=== PATIENT | female | born 1945 | race Caucasian/White ===

== ENCOUNTER 2019-01-28 10:16 | Observation (INO) | payer MEDICARE, SELFPAY ==
[2019-01-28] VITALS (11 sets, daily range): BP systolic 133–163; BP diastolic 73–95; PULSE 70–82; RESP 12–20; TEMP 36.1–37.1; O2SAT 97–100; BMI 24.7
--- NOTE | 2019-01-28 | DI.ECHO.S_ITS ---
[facility] +---------+ : : [address] : : : : [id number] : : : : Phone: [phone] Echocardiogram Report + + :Name: TRISHA PEREZ Study Date: 01/28/2019 Height: 67 in : :[facility] Weight: 160 lb : : Gender: Female BSA: 1.8 m2 : :: 1945 Age: 73 yrs BP: 149/73 mmHg: :Reason For Study: Chest pain : : Performed By: Rosalinda Toledo : :Referring: KALYANI JONES : + + Interpretation Summary Borderline concentric left ventricular hypertrophy with ejection fraction 60- 65%. Normal right ventricle and both atria. No significant valvular abnormality. Procedure: A two-dimensional transthoracic echocardiogram with color flow and Doppler was performed. The study quality was technically adequate. Most of the acoustic windows were suboptimal, but the best imaging was obtained from the subcostal window. The patient was in normal sinus rhythm during the exam. Left Ventricle: The left ventricle is normal in size. There is borderline concentric left ventricular hypertrophy. The ejection fraction is estimated to be 60-65%. There are no focal wall motion abnormalities. Diastolic parameters suggest a relaxation abnormality of the left ventricle, consistent with probable normal filling pressures. Right Ventricle: The right ventricle grossly appears normal in size with probable normal systolic function. Atria: The left atrial size is normal. Right atrial size is normal. The interatrial septum is intact with no evidence for an atrial septal defect. Mitral Valve: The mitral valve is normal in structure and function. There is trace mitral regurgitation. Aortic Valve: The aortic valve opens well. There is mild aortic valve sclerosis. No aortic regurgitation is present. Tricuspid Valve: The tricuspid valve is normal in structure and function. There is a trace or physiologic amount of tricuspid regurgitation. The right ventricular systolic pressure is estimated to be at least 24 mmHg based on an estimated right atrial pressure of 3 mm Hg. Pulmonic Valve: The pulmonic valve is not well seen, but is grossly normal. There is no pulmonic valvular regurgitation. Great Vessels: The aortic root is normal size. The ascending aorta could not be visualized. The ascending aorta is normal in size. The IVC is of normal diameter and collapses greater than 50% with a sniff. This suggests a low right atrial pressure of 3 mm Hg. Pericardium/ Pleura There is no pericardial effusion. There is no pleural effusion. MMode/2D Measurements & Calculations LVIDd: 3.8 cm Ao root diam: 3.2 cm LVIDs: 2.3 cm Aortic Jxn: 2.6 cm FS: 39.8 % asc Aorta Diam: 2.7 cm IVSd: 0.84 cm LVPWd: 0.92 cm LV george. diameter/BSA (cm/m^2): 2.1 LV sys. diameter/BSA (cm/m^2): 1.2 LA dimension: 3.1 cm RA long axis: 4.3 cm LA A2 area: 15.8 cm2 RA area: 9.3 cm2 LA A4 area: 13.5 cm2 RA vol: 17.0 ml LA length (vol): 4.7 cm RA : 9.3 ml/m2 LA vol: 39.0 ml RVDd major: 4.3 cm LA vol index: 21.2 ml/m2 RVD1 (basal): 2.8 cm RVD2 (mid): 2.4 cm Doppler Measurements & Calculations Ao V2 max: 127.1 cm/sec MV E max rudi: 75.9 cm/sec Ao V2 mean: 83.4 cm/sec MV A max rudi: 100.5 cm/sec Ao max P.5 mmHg MV E/A: 0.75 Ao mean P.2 mmHg Med Peak E' Rudi: 5.8 cm/sec Ao V2 VTI: 29.6 cm E/E' med: 13.1 Lat Peak E' Rudi: 41.9 cm/sec E/E' lat: 1.8 E/e' average: 7.5 MV dec time: 0.30 sec MV P1/2t: 87.1 msec TR max rudi: 229.3 cm/sec MV P1/2t max rudi: 76.3 cm/sec TR max P.0 mmHg MVA(P1/2t): 2.5 cm2 PA V2 max: 72.3 cm/sec PA V2 mean: 44.0 cm/sec PA mean P.95 mmHg PA Accel Time: 0.20 sec Electronically signed by: Laura Ramos on Reading Physician:01/28/2019 04:34 PM
--- NOTE | 2019-01-28 10:43 | DI.RAD.S_ITS ---
PROCEDURE: XR CHEST 1V INDICATIONS: chest pain TECHNIQUE: One view of the chest was acquired. COMPARISON: None. FINDINGS: Surgical changes and devices: None. Lungs and pleura: Lungs are clear. No pleural effusions or pneumothorax. Mediastinum: Mediastinal contours appear normal. Heart size is normal. Bones and chest wall: No suspicious bony lesions. Overlying soft tissues appear unremarkable. IMPRESSION: No acute cardiopulmonary disease. Dictated by: aNlini Hoskins M.D. on 01/28/2019 at 11:10 Approved by: Nalini Hoskins M.D. on 01/28/2019 at 11:11
--- NOTE | 2019-01-28 10:48 | ED.CHESTPAIN ---
HPI - Chest Pain General Chief Complaint: Chest Pain Stated Complaint: chest pain x1 day Time Seen by Provider: 01/28/19 10:43 Source: patient Mode of arrival: ambulatory Limitations: no limitations History of Present Illness HPI narrative: Patient is a 73-year-old female who presents with left shoulder and back aching. She has a history of known coronary artery disease with a stent, she says yesterday she woke up with is aching which seems to be rather constant. His it is not worsened with exertion. She states that she also gets short of breath with exertion however that has been ongoing for number of months and she has been ignoring it. She also has bilateral weakness in her hands also ongoing for a number of months. Only thing new today is left shoulder chest aching. She took 81 mg aspirin last night MD complaint: chest pain Onset (ago): day(s) Duration: constant Onset: during rest and during exertion Pain location: left chest (Left shoulder) Severity: mild Quality: aching Pain radiation: back Relieving factors: nothing Exacerbating factors: nothing Related Data Home Medications Medication Instructions Recorded Confirmed aspirin 81 mg PO QPM 01/28/19 01/28/19 bupropion HCl 150 mg PO DAILY 01/28/19 01/28/19 conjugated estrogens [Premarin] 0.3 mg PO DAILY 01/28/19 01/28/19 levothyroxine 100 mcg PO DAILY 01/28/19 01/28/19 lisinopril-hydrochlorothiazide 1 tab PO DAILY 01/28/19 01/28/19 rosuvastatin 40 mg PO DAILY 01/28/19 01/28/19 sertraline 200 mg PO DAILY 01/28/19 01/28/19 Review of Systems Review of Systems GENERAL: Denies chills, fatigue, malaise, fever, sweats, travel HEENT: Denies sinus pain, ear pain, sore throat, difficulty swallowing, neck pain RESPIRATORY: Denies dyspnea, cough, wheezing, hemoptysis, sputum. CARDIOVASCULAR: See HPI GASTROINTESTINAL: Denies nausea, vomiting, abdominal pain, diarrhea, constipation, melena. : Denies dysuria, frequency, incontinence, hematuria, urinary retention, flank pain. MUSCULOSKELETAL: Denies weakness, joint pain, or bony pain SKIN: No rash, no erythema, no pruritus NEUROLOGIC: Denies weakness, dizziness, headache, numbness, change in speech, confusion PSYCHIATRIC: No concerning psychosocial issues. 12 point review of systems is negative except for those stated above and HPI [facility] Medical History Coronary artery disease (Acute) Hyperlipidemia (Acute) Hypertension (Acute) Hypothyroid (Acute) Social History alcohol intake: never substance use type: does not use Social History household members: none Smoking Status: Former smoker alcohol intake: never substance use type: does not use Exam Initial Vital Signs Initial Vital Signs: Vital Signs Temperature 97 F L 01/28/19 10:24 Pulse Rate 82 01/28/19 10:24 Respiratory Rate 12 01/28/19 10:24 Blood Pressure 145/84 H 01/28/19 10:24 Pulse Oximetry 98 01/28/19 10:24 GENERAL: Well-appearing, well-nourished and in no acute distress. HEENT: Head atraumatic,EOMI, pupils reactive, CARDIOVASCULAR: Regular rate and rhythm without murmurs, rubs or gallops. RESPIRATORY: Breath sounds equal bilaterally, no wheezes rales or rhonchi. ABDOMEN: Soft, nontender. Normoactive bowel sounds all 4 quadrants. No guarding or rebound. EXTREMITIES: Normal range of motion, no clubbing or edema. Neurovascularly intact NEUROLOGICAL: Alert and oriented x4.Normal gait and speech. SKIN: Warm, dry, no laceration, no petechiae, no rashes or lesions. Scores HEART Score Heart Score history: Moderately Suspicious Heart Score EKG: Normal Heart Score Age: > or = 65 years old Heart Score risk factors: > 3 risk factors or hx of atherosclerotic disease Heart Score troponin: < or = to normal limit Heart Score Total: 5 Course Orders Ordered: ED Orders 01/28/19 10:35 Complete Blood Count AUTO DIFF Stat Comprehensive Metabolic Panel Stat Lipase Stat Partial Thromboplastin Time Stat Prothrombin Time INR Stat Troponin & CK Cardiac Panel Stat 01/28/19 10:43 XR chest 1V Stat EKG-12 Lead Stat 01/28/19 11:41 Urine Microscopic Stat 01/28/19 13:45 Education, smoking cessation ONGOING 01/28/19 16:00 Troponin & CK Cardiac Panel Urgent 01/28/19 22:00 Troponin & CK Cardiac Panel Routine Acetaminophen (Tylenol) 650 mg PO Q6HR PRN PRN Reason: As Needed for Fever/Mild Pain Bisacodyl (Dulcolax) 10 mg PO DAILY PRN PRN Reason: Constipation Calcium Carbonate (Tums) 1,000 mg PO Q4HR PRN PRN Reason: Dyspepsia Heparin Sodium (Porcine) (Heparin) 5,000 unit SUBCUT BID [facility] Sodium Chloride (Normal Saline 0.9%) 1,000 mls @ 150 mls/hr IV CONT SHERRI Last Admin: 01/28/19 11:03 Dose: 150 mls/hr Influenza Virus Vaccine (Flu Vaccine) 0.5 ml IM .ONCE ONE Stop: 01/28/19 15:42 Magnesium Hydroxide (Milk Of Magnesia) 30 ml PO DAILY PRN PRN Reason: Constipation Morphine Sulfate (Morphine) 2 mg IV Q4HR PRN PRN Reason: Chest Pain Ondansetron HCl (Zofran) 4 mg IV Q8HR PRN PRN Reason: Nausea And Vomiting Discontinued Medications Aspirin (Aspirin Chew) 324 mg PO NOW ONE Stop: 01/28/19 10:44 Last Admin: 01/28/19 11:03 Dose: 324 mg Vital Signs - 8 hr 01/28/19 10:24 01/28/19 11:30 01/28/19 12:00 Temperature 97 F L Pulse Rate 82 76 74 Respiratory Rate 12 14 13 Blood Pressure 145/84 H Blood Pressure [Right Arm] 143/73 H 155/78 H Pulse Oximetry 98 98 98 01/28/19 12:30 01/28/19 13:00 01/28/19 13:30 Temperature Pulse Rate 76 72 74 Respiratory Rate 16 18 17 Blood Pressure Blood Pressure [Right Arm] 145/84 H 152/84 H 146/95 H Pulse Oximetry 97 01/28/19 14:00 01/28/19 14:30 Temperature Pulse Rate 71 70 Respiratory Rate 20 18 Blood Pressure Blood Pressure [Right Arm] 143/88 H 149/73 H Pulse Oximetry MDM - Chest Pain Lab Data Attestation: I reviewed the patient's lab results. Result diagrams: 01/28/19 10:35 01/28/19 10:35 Lab Results 01/28/19 01/28/19 01/28/19 Range/Units 10:35 10:35 10:35 WBC 5.5 (4.5-11.0) X10^3/uL RBC 4.49 (4.0-5.2) X10^6/uL Hgb 13.9 (12.0-16.0) g/dL Hct 40.1 (36-46) % MCV 89.2 (80-100) fL MCH 30.9 (26-34) PG MCHC 34.7 (30-36) % RDW 13.0 (11.6-14.8) % Plt Count 294 (150-400) X10^3/uL Neut % (Auto) 54.4 (50-75) % Lymph % (Auto) 33.4 (25-40) % Bibb % (Auto) 9.9 (3-14) % Eos % (Auto) 1.8 L (2-4) % Baso % (Auto) 0.5 (0-2) % Neut # (Auto) 3000 (5300-2304) /uL Lymph # (Auto) 1800 (9688-4095) /uL Bibb # (Auto) 500 (0-900) /uL Eos # (Auto) 100 (0-450) /uL Baso # (Auto) 0 (0-100) /uL PT 12.1 (10.1-12.7) SECONDS INR 1.1 (0.9-1.3) APTT 29 (26.4-36.2) SECONDS Sodium 137 (137-145) mmol/L Potassium 3.5 (3.4-5.1) mmol/L Chloride 100 (98-107) mmol/L Carbon Dioxide 24 (22-32) mmol/L BUN 17 (7-17) mg/dL Creatinine 0.90 (0.52-1.04) mg/dL Estimated GFR > 60.0 (>60) mL/min BUN/Creatinine Ratio 18.9 (6-22) Glucose 100 (80-110) mg/dL Calcium 9.4 (8.4-10.2) mg/dL Total Bilirubin 0.4 (0.2-1.3) mg/dL AST 36 (14-36) IU/L ALT 24 (9-52) IU/L Alkaline Phosphatase 91 (38-126) U/L Total Creatine Kinase 36 (30-135) U/L CK-MB (CK-2) TNP CK-MB (CK-2) Rel Index TNP Troponin I < 0.012 (0.01-0.034) ng/mL Total Protein 8.4 H (6.3-8.2) g/dL Albumin 4.6 (3.5-5.0) g/dL Globulin 3.8 (1.7-4.1) g/dL Albumin/Globulin Ratio 1.2 (1.0-2.8) Lipase 102 (23-300) U/L Urine RBC (0-5/HPF) Urine WBC (0-5/HPF) Ur Squamous Epith Cells Amorphous Sediment Urine Bacteria (None) Hyaline Casts (None) Urine Mucus (Negative) Ur Culture Indicated? 01/28/19 Range/Units 11:41 WBC (4.5-11.0) X10^3/uL RBC (4.0-5.2) X10^6/uL Hgb (12.0-16.0) g/dL Hct (36-46) % MCV (80-100) fL MCH (26-34) PG MCHC (30-36) % RDW (11.6-14.8) % Plt Count (150-400) X10^3/uL Neut % (Auto) (50-75) % Lymph % (Auto) (25-40) % Bibb % (Auto) (3-14) % Eos % (Auto) (2-4) % Baso % (Auto) (0-2) % Neut # (Auto) (6023-9987) /uL Lymph # (Auto) (6368-7417) /uL Bibb # (Auto) (0-900) /uL Eos # (Auto) (0-450) /uL Baso # (Auto) (0-100) /uL PT (10.1-12.7) SECONDS INR (0.9-1.3) APTT (26.4-36.2) SECONDS Sodium (137-145) mmol/L Potassium (3.4-5.1) mmol/L Chloride (98-107) mmol/L Carbon Dioxide (22-32) mmol/L BUN (7-17) mg/dL Creatinine (0.52-1.04) mg/dL Estimated GFR (>60) mL/min BUN/Creatinine Ratio (6-22) Glucose (80-110) mg/dL Calcium (8.4-10.2) mg/dL Total Bilirubin (0.2-1.3) mg/dL AST (14-36) IU/L ALT (9-52) IU/L Alkaline Phosphatase (38-126) U/L Total Creatine Kinase (30-135) U/L CK-MB (CK-2) CK-MB (CK-2) Rel Index Troponin I (0.01-0.034) ng/mL Total Protein (6.3-8.2) g/dL Albumin (3.5-5.0) g/dL Globulin (1.7-4.1) g/dL Albumin/Globulin Ratio (1.0-2.8) Lipase (23-300) U/L Urine RBC None seen (0-5/HPF) Urine WBC None seen (0-5/HPF) Ur Squamous Epith Cells 5-10 /hpf H Amorphous Sediment 2+ Urine Bacteria None seen (None) Hyaline Casts 1-5/lpf (None) Urine Mucus 2+ H (Negative) Ur Culture Indicated? Cult not indicated Urine Dip Bedside Urine Glucose Negative Bedside Urine Bilirubin - Negative Bedside Urine Ketone - Negative Urine Specific [place] 1.020 Bedside Urine Occult Blood - Negative Bedside Urine pH 6.0 Bedside Urine Protein + 30 Bedside Urine Urobilinogen +/- 1mg Bedside Urine Nitrite - Negative Bedside Urine Leukocytes - Negative Esterase Imaging Data Chest x-ray: Radiologist's impression: PROCEDURE: XR CHEST 1V INDICATIONS: chest pain TECHNIQUE: One view of the chest was acquired. COMPARISON: None. FINDINGS: Surgical changes and devices: None. Lungs and pleura: Lungs are clear. No pleural effusions or pneumothorax. Mediastinum: Mediastinal contours appear normal. Heart size is normal. Bones and chest wall: No suspicious bony lesions. Overlying soft tissues appear unremarkable. IMPRESSION: No acute cardiopulmonary disease. Dictated by: Nalini Hoskins M.D. on 01/28/2019 at 11:10 Approved by: Nalini Hoskins M.D. on 01/28/2019 at 11:11 ECG Data Attestation: I personally reviewed and interpreted this ECG as follows: Prior ECG tracings: not available for review Interpretation: Normal sinus rhythm rate 64 HI interval [address] changes T-wave inversions MDM Narrative Medical decision making narrative: The patient's signs and symptoms are concerning for coronary artery disease. She has known stent, with left-sided aching this and shortness of breath with exertion. She has no PCP in and a [place] all of her doctors are at [facility]. Dr. Plascencia, has been updated and accepted patient for observation. Discharge Plan Departure Patient Disposition: Admitted as Observation Clinical Impression: Chest pain Qualifiers: Chest pain type: unspecified Qualified Code(s): R07.9 - Chest pain, unspecified Discharge Date/Time: 01/28/19 15:20 Interventions: ED Discharge Assessment Last Done: 01/28/19 14:38 Admit Date/Time: 01/28/19 13:26 Admit Provider: Jenny Plascencia
--- NOTE | 2019-01-28 11:01 | ED_ITS ---
HPI - Chest Pain General Chief Complaint: Chest Pain Stated Complaint: chest pain x1 day Time Seen by Provider: 01/28/19 10:43 Source: patient Mode of arrival: ambulatory Limitations: no limitations History of Present Illness HPI narrative: Patient is a 73-year-old female who presents with left shoulder and back aching. She has a history of known coronary artery disease with a stent, she says yesterday she woke up with is aching which seems to be rather constant. His it is not worsened with exertion. She states that she also gets short of breath with exertion however that has been ongoing for number of months and she has been ignoring it. She also has bilateral weakness in her hands also ongoing for a number of months. Only thing new today is left shoulder chest aching. She took 81 mg aspirin last night MD complaint: chest pain Onset (ago): day(s) Duration: constant Onset: during rest and during exertion Pain location: left chest (Left shoulder) Severity: mild Quality: aching Pain radiation: back Relieving factors: nothing Exacerbating factors: nothing Related Data Home Medications Medication Instructions Recorded Confirmed aspirin 81 mg PO QPM 01/28/19 01/28/19 bupropion HCl 150 mg PO DAILY 01/28/19 01/28/19 conjugated estrogens [Premarin] 0.3 mg PO DAILY 01/28/19 01/28/19 levothyroxine 100 mcg PO DAILY 01/28/19 01/28/19 lisinopril-hydrochlorothiazide 1 tab PO DAILY 01/28/19 01/28/19 rosuvastatin 40 mg PO DAILY 01/28/19 01/28/19 sertraline 200 mg PO DAILY 01/28/19 01/28/19 Review of Systems Review of Systems GENERAL: Denies chills, fatigue, malaise, fever, sweats, travel HEENT: Denies sinus pain, ear pain, sore throat, difficulty swallowing, neck pain RESPIRATORY: Denies dyspnea, cough, wheezing, hemoptysis, sputum. CARDIOVASCULAR: See HPI GASTROINTESTINAL: Denies nausea, vomiting, abdominal pain, diarrhea, constipation, melena. : Denies dysuria, frequency, incontinence, hematuria, urinary retention, flank pain. MUSCULOSKELETAL: Denies weakness, joint pain, or bony pain SKIN: No rash, no erythema, no pruritus NEUROLOGIC: Denies weakness, dizziness, headache, numbness, change in speech, confusion PSYCHIATRIC: No concerning psychosocial issues. 12 point review of systems is negative except for those stated above and HPI [facility] Medical History Coronary artery disease (Acute) Hyperlipidemia (Acute) Hypertension (Acute) Hypothyroid (Acute) Social History alcohol intake: never substance use type: does not use Social History household members: none Smoking Status: Former smoker alcohol intake: never substance use type: does not use Exam Initial Vital Signs Initial Vital Signs: Vital Signs Temperature 97 F L 01/28/19 10:24 Pulse Rate 82 01/28/19 10:24 Respiratory Rate 12 01/28/19 10:24 Blood Pressure 145/84 H 01/28/19 10:24 Pulse Oximetry 98 01/28/19 10:24 GENERAL: Well-appearing, well-nourished and in no acute distress. HEENT: Head atraumatic,EOMI, pupils reactive, CARDIOVASCULAR: Regular rate and rhythm without murmurs, rubs or gallops. RESPIRATORY: Breath sounds equal bilaterally, no wheezes rales or rhonchi. ABDOMEN: Soft, nontender. Normoactive bowel sounds all 4 quadrants. No guarding or rebound. EXTREMITIES: Normal range of motion, no clubbing or edema. Neurovascularly intact NEUROLOGICAL: Alert and oriented x4.Normal gait and speech. SKIN: Warm, dry, no laceration, no petechiae, no rashes or lesions. Scores HEART Score Heart Score history: Moderately Suspicious Heart Score EKG: Normal Heart Score Age: > or = 65 years old Heart Score risk factors: > 3 risk factors or hx of atherosclerotic disease Heart Score troponin: < or = to normal limit Heart Score Total: 5 Course Orders Ordered: ED Orders 01/28/19 10:35 Complete Blood Count AUTO DIFF Stat Comprehensive Metabolic Panel Stat Lipase Stat Partial Thromboplastin Time Stat Prothrombin Time INR Stat Troponin & CK Cardiac Panel Stat 01/28/19 10:43 XR chest 1V Stat EKG-12 Lead Stat 01/28/19 11:41 Urine Microscopic Stat 01/28/19 13:45 Education, smoking cessation ONGOING 01/28/19 16:00 Troponin & CK Cardiac Panel Urgent 01/28/19 22:00 Troponin & CK Cardiac Panel Routine Acetaminophen (Tylenol) 650 mg PO Q6HR PRN PRN Reason: As Needed for Fever/Mild Pain Bisacodyl (Dulcolax) 10 mg PO DAILY PRN PRN Reason: Constipation Calcium Carbonate (Tums) 1,000 mg PO Q4HR PRN PRN Reason: Dyspepsia Heparin Sodium (Porcine) (Heparin) 5,000 unit SUBCUT BID [facility] Sodium Chloride (Normal Saline 0.9%) 1,000 mls @ 150 mls/hr IV CONT SHERRI Last Admin: 01/28/19 11:03 Dose: 150 mls/hr Influenza Virus Vaccine (Flu Vaccine) 0.5 ml IM .ONCE ONE Stop: 01/28/19 15:42 Magnesium Hydroxide (Milk Of Magnesia) 30 ml PO DAILY PRN PRN Reason: Constipation Morphine Sulfate (Morphine) 2 mg IV Q4HR PRN PRN Reason: Chest Pain Ondansetron HCl (Zofran) 4 mg IV Q8HR PRN PRN Reason: Nausea And Vomiting Discontinued Medications Aspirin (Aspirin Chew) 324 mg PO NOW ONE Stop: 01/28/19 10:44 Last Admin: 01/28/19 11:03 Dose: 324 mg Vital Signs - 8 hr 01/28/19 10:24 01/28/19 11:30 01/28/19 12:00 Temperature 97 F L Pulse Rate 82 76 74 Respiratory Rate 12 14 13 Blood Pressure 145/84 H Blood Pressure [Right Arm] 143/73 H 155/78 H Pulse Oximetry 98 98 98 01/28/19 12:30 01/28/19 13:00 01/28/19 13:30 Temperature Pulse Rate 76 72 74 Respiratory Rate 16 18 17 Blood Pressure Blood Pressure [Right Arm] 145/84 H 152/84 H 146/95 H Pulse Oximetry 97 01/28/19 14:00 01/28/19 14:30 Temperature Pulse Rate 71 70 Respiratory Rate 20 18 Blood Pressure Blood Pressure [Right Arm] 143/88 H 149/73 H Pulse Oximetry MDM - Chest Pain Lab Data Attestation: I reviewed the patient's lab results. Result diagrams: 01/28/19 10:35 01/28/19 10:35 Lab Results 01/28/19 01/28/19 01/28/19 Range/Units 10:35 10:35 10:35 WBC 5.5 (4.5-11.0) X10^3/uL RBC 4.49 (4.0-5.2) X10^6/uL Hgb 13.9 (12.0-16.0) g/dL Hct 40.1 (36-46) % MCV 89.2 (80-100) fL MCH 30.9 (26-34) PG MCHC 34.7 (30-36) % RDW 13.0 (11.6-14.8) % Plt Count 294 (150-400) X10^3/uL Neut % (Auto) 54.4 (50-75) % Lymph % (Auto) 33.4 (25-40) % [place] % (Auto) 9.9 (3-14) % Eos % (Auto) 1.8 L (2-4) % Baso % (Auto) 0.5 (0-2) % Neut # (Auto) 3000 (5164-5896) /uL Lymph # (Auto) 1800 (4748-9828) /uL [place] # (Auto) 500 (0-900) /uL Eos # (Auto) 100 (0-450) /uL Baso # (Auto) 0 (0-100) /uL PT 12.1 (10.1-12.7) SECONDS INR 1.1 (0.9-1.3) APTT 29 (26.4-36.2) SECONDS Sodium 137 (137-145) mmol/L Potassium 3.5 (3.4-5.1) mmol/L Chloride 100 (98-107) mmol/L Carbon Dioxide 24 (22-32) mmol/L BUN 17 (7-17) mg/dL Creatinine 0.90 (0.52-1.04) mg/dL Estimated GFR > 60.0 (>60) mL/min BUN/Creatinine Ratio 18.9 (6-22) Glucose 100 (80-110) mg/dL Calcium 9.4 (8.4-10.2) mg/dL Total Bilirubin 0.4 (0.2-1.3) mg/dL AST 36 (14-36) IU/L ALT 24 (9-52) IU/L Alkaline Phosphatase 91 (38-126) U/L Total Creatine Kinase 36 (30-135) U/L CK-MB (CK-2) TNP CK-MB (CK-2) Rel Index TNP Troponin I < 0.012 (0.01-0.034) ng/mL Total Protein 8.4 H (6.3-8.2) g/dL Albumin 4.6 (3.5-5.0) g/dL Globulin 3.8 (1.7-4.1) g/dL Albumin/Globulin Ratio 1.2 (1.0-2.8) Lipase 102 (23-300) U/L Urine RBC (0-5/HPF) Urine WBC (0-5/HPF) Ur Squamous Epith Cells Amorphous Sediment Urine Bacteria (None) Hyaline Casts (None) Urine Mucus (Negative) Ur Culture Indicated? 01/28/19 Range/Units 11:41 WBC (4.5-11.0) X10^3/uL RBC (4.0-5.2) X10^6/uL Hgb (12.0-16.0) g/dL Hct (36-46) % MCV (80-100) fL MCH (26-34) PG MCHC (30-36) % RDW (11.6-14.8) % Plt Count (150-400) X10^3/uL Neut % (Auto) (50-75) % Lymph % (Auto) (25-40) % [place] % (Auto) (3-14) % Eos % (Auto) (2-4) % Baso % (Auto) (0-2) % Neut # (Auto) (7506-5442) /uL Lymph # (Auto) (3039-9875) /uL [place] # (Auto) (0-900) /uL Eos # (Auto) (0-450) /uL Baso # (Auto) (0-100) /uL PT (10.1-12.7) SECONDS INR (0.9-1.3) APTT (26.4-36.2) SECONDS Sodium (137-145) mmol/L Potassium (3.4-5.1) mmol/L Chloride (98-107) mmol/L Carbon Dioxide (22-32) mmol/L BUN (7-17) mg/dL Creatinine (0.52-1.04) mg/dL Estimated GFR (>60) mL/min BUN/Creatinine Ratio (6-22) Glucose (80-110) mg/dL Calcium (8.4-10.2) mg/dL Total Bilirubin (0.2-1.3) mg/dL AST (14-36) IU/L ALT (9-52) IU/L Alkaline Phosphatase (38-126) U/L Total Creatine Kinase (30-135) U/L CK-MB (CK-2) CK-MB (CK-2) Rel Index Troponin I (0.01-0.034) ng/mL Total Protein (6.3-8.2) g/dL Albumin (3.5-5.0) g/dL Globulin (1.7-4.1) g/dL Albumin/Globulin Ratio (1.0-2.8) Lipase (23-300) U/L Urine RBC None seen (0-5/HPF) Urine WBC None seen (0-5/HPF) Ur Squamous Epith Cells 5-10 /hpf H Amorphous Sediment 2+ Urine Bacteria None seen (None) Hyaline Casts 1-5/lpf (None) Urine Mucus 2+ H (Negative) Ur Culture Indicated? Cult not indicated Urine Dip Bedside Urine Glucose Negative Bedside Urine Bilirubin - Negative Bedside Urine Ketone - Negative Urine Specific [place] 1.020 Bedside Urine Occult Blood - Negative Bedside Urine pH 6.0 Bedside Urine Protein + 30 Bedside Urine Urobilinogen +/- 1mg Bedside Urine Nitrite - Negative Bedside Urine Leukocytes - Negative Esterase Imaging Data Chest x-ray: Radiologist's impression: PROCEDURE: XR CHEST 1V INDICATIONS: chest pain TECHNIQUE: One view of the chest was acquired. COMPARISON: None. FINDINGS: Surgical changes and devices: None. Lungs and pleura: Lungs are clear. No pleural effusions or pneumothorax. Mediastinum: Mediastinal contours appear normal. Heart size is normal. Bones and chest wall: No suspicious bony lesions. Overlying soft tissues appear unremarkable. IMPRESSION: No acute cardiopulmonary disease. Dictated by: Nalini Hoskins M.D. on 01/28/2019 at 11:10 Approved by: Nalini Hoskins M.D. on 01/28/2019 at 11:11 ECG Data Attestation: I personally reviewed and interpreted this ECG as follows: Prior ECG tracings: not available for review Interpretation: Normal sinus rhythm rate 64 [place] interval [address] changes T-wave inversions MDM Narrative Medical decision making narrative: The patient's signs and symptoms are concerning for coronary artery disease. She has known stent, with left-sided a candido this and shortness of breath with exertion. She has no PCP in and a [place] all of her doctors are at [facility] Dr. Plascencia, has been updated and accepted patient for observation. Discharge Plan Departure Patient Disposition: Admitted as Observation Clinical Impression: Chest pain Qualifiers: Chest pain type: unspecified Qualified Code(s): R07.9 - Chest pain, unspecified Discharge Date/Time: 01/28/19 15:20 Interventions: ED Discharge Assessment Last Done: 01/28/19 14:38 Admit Date/Time: 01/28/19 13:26 Admit Provider: Jenny Plascencia
[2019-01-28] MEDS: SODIUM CHLORIDE 0.9% 1,000 ML 150 ML IV (11:03)
[2019-01-28] MEDS: ASPIRIN 81 MG TAB 324 MG PO (11:03)
[2019-01-28 11:04] LABS: Add Manual Diff / Slide Review NO; Basophils Absolute Auto 0 /uL (0-100); Basophils Percent Auto 0.5 % (0-2); Eosinophils Absolute Auto 100 /uL (0-450); Eosinophils Percent Auto 1.8 % (2-4); Hematocrit 40.1 % (36-46); Hemoglobin 13.9 g/dL (12.0-16.0); Lymphocytes Absolute Auto 1800 /uL (1100-4500); Lymphocytes Percent Auto 33.4 % (25-40); Mean Corpuscular HGB Conc 34.7 % (30-36); Mean Corpuscular Hemoglobin 30.9 PG (26-34); Mean Corpuscular Volume 89.2 fL (80-100); Monocytes Absolute Auto 500 /uL (0-900); Monocytes Percent Auto 9.9 % (3-14); Neutrophils Absolute Auto 3000 /uL (1500-7000); Neutrophils Percent Auto 54.4 % (50-75); Platelet Count 294 X10^3/uL (150-400); Red Blood Cell Count 4.49 X10^6/uL (4.0-5.2); White Blood Cell Count 5.5 X10^3/uL (4.5-11.0)
[2019-01-28 12:07] LABS: Bacteria Urine None Seen; RBC Urine None Seen (0-5/HPF); WBC Urine None Seen (0-5/HPF)
[2019-01-28 12:30] LABS: INR 1.1 (0.9-1.3); Prothrombin Time 12.1 SECONDS (10.1-12.7)
[2019-01-28 12:32] LABS: Alanine Aminotransferase 24 IU/L (9-52); Albumin 4.6 g/dL (3.5-5.0); Albumin Globulin Ratio 1.2 (1.0-2.8); Alkaline Phosphatase 91 U/L (38-126); Aspartate Aminotransferase 36 IU/L (14-36); BUN Creatinine Ratio 18.9 (6-22); Bilirubin Total 0.4 mg/dL (0.2-1.3); Blood Urea Nitrogen 17 mg/dL (7-17); Calcium 9.4 mg/dL (8.4-10.2); Carbon Dioxide 24 mmol/L (22-32); Chloride 100 mmol/L (98-107); Creatine Kinase 36 U/L (30-135); Estimated Glomerular Filt Rate > 60.0 mL/min (>60); Globulin 3.8 g/dL (1.7-4.1); Glucose 100 mg/dL (80-110); HEMOLYSIS < 15 (0-50); Lipase 102 U/L (23-300); Potassium 3.5 mmol/L (3.4-5.1); Sodium 137 mmol/L (137-145); Total Protein 8.4 g/dL (6.3-8.2)
[2019-01-28 12:33] LABS: PTT Partial Thromboplastin Tim 29 SECONDS (26.4-36.2)
[2019-01-28 12:42] LABS: Amorphous Sediment Urine 2+; Culture Indicated Urine Cult Not Indicated; Hyaline Casts Urine 1-5/LPF; Mucus Urine 2+ (Negative); Squamous Epithelial Cell Urine 5-10 /HPF
[2019-01-28 12:43] LABS: Troponin I < 0.012 ng/mL (0.01-0.034)
--- NOTE | 2019-01-28 14:38 | PC.NURSE ---
echo being done in room
[2019-01-28 16:30] LABS: Creatine Kinase 37 U/L (30-135)
[2019-01-28 16:41] LABS: Troponin I < 0.012 ng/mL (0.01-0.034)
--- NOTE | 2019-01-28 21:49 | P.HP_ITS ---
History of Present Illness Date Patient Seen: 01/28/19 Time Patient Seen: 20:19 Chief complaint: chest pain day Narrative: This is a 73-year-old female patient with a history coronary artery disease with prior stent placement, hyperlipidemia, hypertension, status post coiling of cerebral aneurysm, hypothyroidism, migraines and depression who presents to the hospital with left shoulder and back pain consistent with her previous cardiac pain for 1 day. The patient reports that she began feeling approximately 1 week ago with weakness and malaise with associated nasal congestion and sore throat. The patient indicates then yesterday she began having left shoulder pain and mid thoracic back pain. She describes this pain is the same as when she had her cardiac workup at [facility] approximately 5 years ago and underwent stenting. The patient had associated palpitations on S unday but none prior or since. The patient does describe having exertional dyspnea for over a month indicating she can walk a few blocks on level ground without shortness of breath however cannot ascend a flight of stairs without stopping. She also reports having weakness of the extremities for over a month but has not been evaluated for these complaints. The patient has been struggling with depression on bupropion and taking sertraline for anger issues since her 15 years ago which is when she states she initially began having heart problems. Patient has had 1 episode of emesis and diarrhea while here on the floor with associated crampy abdominal pain. She denies headaches or dizziness and has no vision or hearing changes. She denies complaints of nasal congestion or sore throat at this time. She denies neck or back pain, chest pain or shoulder pain. She reports no shortness of breath at rest and no cough. She reports mild epigastric discomfort but denies reflux symptoms, hematemesis or or blood in the stool. Denies urinary symptoms frequency urgency or burning. Patient arrived in the ER at 10:24 a.m. this morning at which time she was afebrile a temperature of 97? heart rate of 82, blood pressure of 145/84, respirations of 12 and saturating at 98% on room air. In the ER she had an EKG done which showed normal sinus rhythm without ectopy or block, ST or T-wave changes. She had a chest x-ray taken which shows no cardiopulmonary disease. She has had an echo completed quickly which shows an ejection fraction of 60-65% with no wall motion abnormalities. Further describes left ventricular pressures suggestive of relaxation abnormality. Right ventricle and valve structures reported as grossly normal. On laboratory analysis her CBC is unremarkable with no elevation order left shift and WBCs. Her coags are within normal limits and she has had 2 troponins and CK measurements both of which are negative completed in the ER. Her chemistries are also within normal range with a borderline potassium at 3.5 and good renal function with a BUN of 17 and creatinine 0.9. Her UA is negative for infection. Patient History Medical History Cerebral aneurysm without rupture (Acute) Coronary artery disease (Acute) Depression (Acute) Hyperlipidemia (Acute) Hypertension (Acute) Hypothyroid (Acute) Migraine headache (Acute) Surgical History History of coronary artery stent placement (Acute) Hx of appendectomy (Acute) Status post coil embolization of cerebral aneurysm (Acute) Family History Father No problems noted. Mother Respiratory disease Cerebral aneurysm Brother In good health Social History household members: none Smoking Status: Former smoker alcohol intake: never substance use type: does not use Family & Social History Social History: household members none Prior Living Arrangements House Safety & Behavioral: Feels Safe in Current Yes Environment Been Physically Hurt or No Threatened By a Person Suicidal Ideation Description None Suicide Plan Description No Plan Tobacco & Substance use: Tobacco type cigarettes Smoking Status Former smoker alcohol intake never Substance Use Type does not use Comment: Patient lives alone in a single family home. She has been for 15 years. Her parents are both her father from a traumatic and her mother with a history of smoking and cerebral aneurysm. Her brother is healthy. Smoking: Patient smoked 2-1/2 to 3 packs per day for 17 years and quit 35 years ago Alcohol: Rare alcohol intake Substance use: Patient will take 1/2 of a CBD candy when she has migraine headaches to help her sleep. Advanced directives: The patient wishes to be a DO NOT RESUSCITATE. Meds Home Medications Medication Instructions Recorded Confirmed Type aspirin 81 mg PO QPM 01/28/19 01/28/19 History bupropion HCl 150 mg PO DAILY 01/28/19 01/28/19 History conjugated estrogens [Premarin] 0.3 mg PO DAILY 01/28/19 01/28/19 History levothyroxine 100 mcg PO DAILY 01/28/19 01/28/19 History lisinopril-hydrochlorothiazide 1 tab PO DAILY 01/28/19 01/28/19 History rosuvastatin 40 mg PO DAILY 01/28/19 01/28/19 History sertraline 200 mg PO DAILY 01/28/19 01/28/19 History Review of Systems Review of Systems All systems reviewed & are unremarkable except as noted in HPI and below Exam Vital Signs (past 8 hours): - 01/28/19 13:30 01/28/19 14:00 01/28/19 14:30 Temperature Pulse Rate 74 71 70 Respiratory Rate 17 20 18 Blood Pressure Blood Pressure [Right Arm] 146/95 H 143/88 H 149/73 H Pulse Oximetry 01/28/19 15:25 01/28/19 15:30 01/28/19 19:55 Temperature 98.7 F 97.6 F Pulse Rate 74 80 Respiratory Rate 12 20 Blood Pressure 163/82 H 133/76 Blood Pressure [Right Arm] Pulse Oximetry 100 99 99 Oxygen Delivery Method Room Air Narrative Exam Narrative: GENERAL APPEARANCE: well developed, well nourished, in no acute distress. HEAD: Normocephalic, atraumatic, no scalp lesions. EYES: pupils equal, round, reactive to light and accommodation, sclera non- icteric, extraocular movement intact without nystagmus. EARS: normal external structures, able to hear normal volume speech. NOSE: sinuses non tender to percussion, no rhinorrhea ORAL CAVITY: mucosa moist without lesions or exudate, palate normal, tongue in midline. THROAT: normal, no erythema, no exudate, pharynx normal, uvula midline. NECK/THYROID: neck supple, no jugular venous distention, no carotid bruit, no thyromegaly, trachea midline. LYMPH NODES: no cervical or supraclavicular lymphadenopathy. SKIN: warm and dry, no suspicious lesions, no rashes, good turgor. HEART: regular rate and rhythm, S1-S2 without murmur, rubs, gallops, brisk capillary refill, no edema LUNGS: clear to auscultation bilaterally, no coarseness crackles or wheezing, no cough present CHEST: Symmetrical movement, no accessory muscle use, no pain to AP and lateral compression. ABDOMEN: Soft, no distention, mild epigastric tenderness on palpation, no lower abdominal tenderness, no guarding or peritoneal signs, no organomegaly, no flank or suprapubic tenderness BACK: Normal curvature, no step-offs, nontender to palpation, no CVA tenderness on percussion EXTREMITIES: moves all extremities, strength is 5/5 and symmetrical, brisk capillary refill. NEUROLOGIC: AAO x4, no focal neurologic deficits, cranial nerves II-XII grossly intact , motor strength normal upper and lower extremities, sensory exam intact to light touch, hearing grossly normal to speech. PSYCH: alert, cognitive function intact, good eye contact, quiet affect Objective Labs Result Diagrams: 01/28/19 10:35 01/28/19 10:35 Labs: Laboratory Results - last 24 hr 01/28/19 01/28/19 01/28/19 10:35 10:35 10:35 WBC 5.5 RBC 4.49 Hgb 13.9 Hct 40.1 MCV 89.2 MCH 30.9 MCHC 34.7 RDW 13.0 Plt Count 294 Neut % (Auto) 54.4 Lymph % (Auto) 33.4 [place] % (Auto) 9.9 Eos % (Auto) 1.8 L Baso % (Auto) 0.5 Neut # (Auto) 3000 Lymph # (Auto) 1800 [place] # (Auto) 500 Eos # (Auto) 100 Baso # (Auto) 0 PT 12.1 INR 1.1 APTT 29 Sodium 137 Potassium 3.5 Chloride 100 Carbon Dioxide 24 BUN 17 Creatinine 0.90 Estimated GFR > 60.0 BUN/Creatinine Ratio 18.9 Glucose 100 Calcium 9.4 Total Bilirubin 0.4 AST 36 ALT 24 Alkaline Phosphatase 91 Total Creatine Kinase 36 CK-MB (CK-2) TNP CK-MB (CK-2) Rel Index TNP Troponin I < 0.012 Total Protein 8.4 H Albumin 4.6 Globulin 3.8 Albumin/Globulin Ratio 1.2 Lipase 102 Urine RBC Urine WBC Ur Squamous Epith Cells Amorphous Sediment Urine Bacteria Hyaline Casts Urine Mucus Ur Culture Indicated? 01/28/19 01/28/19 11:41 16:08 WBC RBC Hgb Hct MCV MCH MCHC RDW Plt Count Neut % (Auto) Lymph % (Auto) [place] % (Auto) Eos % (Auto) Baso % (Auto) Neut # (Auto) Lymph # (Auto) [place] # (Auto) Eos # (Auto) Baso # (Auto) PT INR APTT Sodium Potassium Chloride Carbon Dioxide BUN Creatinine Estimated GFR BUN/Creatinine Ratio Glucose Calcium Total Bilirubin AST ALT Alkaline Phosphatase Total Creatine Kinase 37 CK-MB (CK-2) TNP CK-MB (CK-2) Rel Index TNP Troponin I < 0.012 Total Protein Albumin Globulin Albumin/Globulin Ratio Lipase Urine RBC None seen Urine WBC None seen Ur Squamous Epith Cells 5-10 /hpf H Amorphous Sediment 2+ Urine Bacteria None seen Hyaline Casts 1-5/lpf Urine Mucus 2+ H Ur Culture Indicated? Cult not indicated Assessment & Plan Assessment & Plan narrative: 1. Acute Chest pain, present on admission -patient reports left shoulder and back pain consistent with prior chest pain worked up at [facility] 5 years ago resulting in stent placement of unknown vessel -patient woke with the pain yesterday with no exacerbation with activity, no relieving factors -dyspnea on exertion for over a month, no worsening shortness of breath or reports diaphoresis with development of pain -12 lead EKG is sinus rhythm without ectopy or block, no ST or T-wave changes -troponin and CK completed in the ER x2 are both negative. -echocardiogram completed showing EF of 60-65%, no wall motion abnormalities, LV pressures suggestive of relaxation abnormality -patient is on tele, shoulder and back pain have resolved, will obtain 1 more troponin and CK at 10:00 p.m.. -nuclear med stress test in the morning. 2. Hypertension, chronic - the patient initially with blood pressure 145/84 on admission to the ER and subsequently 133/76 on the floor. -will continue patient's routine medication of lisinopril 20 mg and hy drochlorothiazide 12.5 mg daily 3. Hyperlipidemia, chronic -patient is on rosuvastatin 40 mg daily -will recheck a lipid panel 4. Hypothyroidism, chronic -will continue patient's levothyroxine 100 mcg daily. 5. Depression, chronic -depression treatment is continued with bupropion 150 mg daily with anger features managed with sertraline 200 mg 6. Malaise, acute -patient complains of mild of her symptoms of malaise nasal congestion and sore throat for 1 week -nausea vomiting with crampy abdominal pain and diarrhea today -will obtain a respiratory and gastrointestinal PCR panel -Protonix 20 mg daily for epigastric discomfort 7. Cerebral aneurysm, chronic -no associated rupture or bleed -status post coiling no residual neurologic sequelae. The patient is admitted to the hospital related to the severity of symptoms and risk of complications. She is admitted observation status with expected length of stay less than 2 midnights. Time Spent With Patient Time with patient: 25 - 35 minutes Quality VTE Deep Vein Thrombosis/Pulmonary Embolism Present on Admission: No
[2019-01-28] MEDS: HEPARIN 5,000 UNIT/ML VIAL 5000 UNIT SUBCUT (22:14)
[2019-01-28 23:05] LABS: Creatine Kinase 38 U/L (30-135)
[2019-01-28 23:18] LABS: Troponin I < 0.012 ng/mL (0.01-0.034)
--- NOTE | 2019-01-28 23:34 | PC.NURSE ---
1600- Pt arrived to room 206 from ED via WC. A/O x3, reports no chest pain at this time. BP-163/82, 133/76, HR-74, 80. 100%RA, LS clear, denies SOB. Bt+, denies nausea. Indep to BRP to void, with some impulsiveness, reminded pt to use call light, and bed alarm will be on, per hospital policy. Pt reports would lilke a flu vac, but in the morning. Stress test scheduled for AM. 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 Dr. Patel in to assess pt @ 2130. Pt reported had an aneurysm 2008 with a coil repair.
[2019-01-29] VITALS (7 sets, daily range): BP systolic 118–130; BP diastolic 64–74; PULSE 75–88; RESP 16–20; TEMP 26.6–36.5; O2SAT 95–99
[2019-01-29] MEDS: PANTOPRAZOLE 20 MG TABLET PO (05:22)
[2019-01-29] MEDS: ACETAMINOPHEN 325 MG TABLET 650 MG PO (06:46)
[2019-01-29 07:04] LABS: Adenovirus Not Detected (Not Detect); Bordetella pertussis Not Detected (Not Detect); Chlamydophila pneumoniae Not Detected (Not Detect); Coronavirus 229E Not Detected (Not Detect); Coronavirus HKU1 Not Detected (Not Detect); Coronavirus NL 63 Not Detected (Not Detect); Coronavirus OC43 Not Detected (Not Detect); Human Metapneumovirus Not Detected (Not Detect); Human Rhinovirus/Enterovirus Not Detected (Not Detect); Influenza A Not Detected (Not Detect); Influenza B Not Detected (Not Detect); Mycoplasma pneumoniae Not Detected (Not Detect); Parainfluenza Virus 1 Not Detected (Not Detect); Parainfluenza Virus 2 Not Detected (Not Detect); Parainfluenza Virus 3 Not Detected (Not Detect); Parainfluenza Virus 4 Not Detected (Not Detect); Respiratory Syncytial Virus Not Detected (Not Detect)
[2019-01-29 07:37] LABS: Add Manual Diff / Slide Review NO; Basophils Absolute Auto 0 /uL (0-100); Basophils Percent Auto 0.4 % (0-2); Eosinophils Absolute Auto 200 /uL (0-450); Eosinophils Percent Auto 3.2 % (2-4); Hematocrit 39.9 % (36-46); Hemoglobin 13.7 g/dL (12.0-16.0); Lymphocytes Absolute Auto 1700 /uL (1100-4500); Lymphocytes Percent Auto 30.3 % (25-40); Mean Corpuscular HGB Conc 34.3 % (30-36); Mean Corpuscular Hemoglobin 30.5 PG (26-34); Mean Corpuscular Volume 88.9 fL (80-100); Monocytes Absolute Auto 600 /uL (0-900); Monocytes Percent Auto 10.4 % (3-14); Neutrophils Absolute Auto 3100 /uL (1500-7000); Neutrophils Percent Auto 55.7 % (50-75); Platelet Count 293 X10^3/uL (150-400); Red Blood Cell Count 4.49 X10^6/uL (4.0-5.2); Red Cell Distribution Width 12.8 % (11.6-14.8); White Blood Cell Count 5.6 X10^3/uL (4.5-11.0)
[2019-01-29 07:54] LABS: BUN Creatinine Ratio 21.3 (6-22); Blood Urea Nitrogen 17 mg/dL (7-17); Calcium 9.7 mg/dL (8.4-10.2); Carbon Dioxide 29 mmol/L (22-32); Chloride 100 mmol/L (98-107); Cholesterol 198 mg/dL (140-199); Estimated Glomerular Filt Rate > 60.0 mL/min (>60); Glucose 92 mg/dL (80-110); HDL Cholesterol 41 mg/dL (40-60); HEMOLYSIS < 15 (0-50); LDL Cholesterol Calculated 122 mg/dL (<100); Magnesium 1.7 mg/dL (1.6-2.3); Potassium 3.5 mmol/L (3.4-5.1); Sodium 140 mmol/L (137-145); Triglycerides 177 mg/dL (35-150)
--- NOTE | 2019-01-29 08:57 | CM.DANOTE ---
DCP: Case received, EMR reviewed and met with patient. Introduced self and role. DCP template completed with information currently available. Patient is a 73 year old female who admitted yesterday afternoon to the care of the hospitalist team. PCP: Dr. Underwood, at [facility], [place]. Payer: confirmed: Medicare/[employer]ARP. Patient came to hospital via family vehicle due to symptoms of chest pain. Patient has history of CAD. Spoke with patient. She stated that she recently moved to this area. She has been seeing provider at [facility], [place], and does not have a local provider in this area. She is independent. She stated that she is staying with her ex-, while her kitchen is being remodeled. Let her know that the [facility] clinic may be taking new patients. P: DCP to continue to follow closely. Will give her information on local providers. Should be able to go home when she is medically stable, and after further testing. Massiel Mauricio, RN/Stave Inspector
[2019-01-29] MEDS: LISINOPRIL 20 MG TABLET PO (09:03)
[2019-01-29] MEDS: buPROPion SR 150 MG TAB PO (09:03)
[2019-01-29] MEDS: HEPARIN 5,000 UNIT/ML VIAL 5000 UNIT SUBCUT (09:03)
[2019-01-29] MEDS: SERTRALINE 50 MG TABLET 200 MG PO (09:04)
[2019-01-29] MEDS: ROSUVASTATIN 10 MG TABLET 40 MG PO (09:04)
[2019-01-29] MEDS: LEVOTHYROXINE 100 MCG TABLET PO (09:04)
--- NOTE | 2019-01-29 09:20 | PC.NURSE ---
Addendum entered by Livia Victor R.N. 01/29/19 14:55: CARDIAC - after the perfusion test was completed, pt stated I'm going home in 2 hours, spoke to who had conversation w/pt regarding waiting for orthotics prosthetics assistant to interpret report prior to discharging. Original Note: Addendum entered by Livia Victor R.N. 01/29/19 12:10: CARDIAC - to NM for test. Original Note: AM NOTE - pt is alert, denies chest pain, headache discomfort resolved after earlier tylenol, hr reg 84, bs clear, bp 128/67, per discussion with Nelly in nuclear med, may feed breakfast, scan will not be done this morning, not sure when or if can be done this afternoon, she will call later with more info, held hctz component of bp med in case the scan will be done, no nausea or diarrhea overnight.
--- NOTE | 2019-01-29 12:35 | PM.TREADMILL ---
Cardiac Stress Test Report Referral & Results Date Patient Seen: 01/29/19 Time Patient Seen: 12:35 Requesting provider: Jenny Plascencia Indication: Chest pain Rest ECG: Unremarkable Procedure Note: Today following both written and verbal informed consent the patient was exercised according to a standard Kb protocol patient went for a total of 5 minutes 8 seconds achieving a maximum heart rate of 128 maximum systolic blood pressure of 156. This is approximately 7.0 METS. Exercise was terminated at this point because of fatigue and inability the patient to continue. Patient was also given Cardiolite through a previously started Hep-Lock IV by the nuclear medicine technologist approximately 1 minute prior to the cessation of exercise. There are no ST-T segment changes identified Normal heart rate somewhat blunted blood pressure response Functional impairment rating 0 on the active scale Impression: No ECG evidence of ischemia Perfusion imaging be reported separately Please note: Actual ECG tracings can be found in the PACS system.
--- NOTE | 2019-01-29 16:54 | PC.NURSE ---
Addendum entered by Marily Dominguez R.N. 01/29/19 18:28: Orders to D/C home. HL and tele D/Cd Instructions given w/ apparent understanding. Pt escorted to waiting vehicle by staff in stable condition. Original Note: Pt watching TV, denies any iossues at this time. Awaiting test results for possible D/C. Lungs clear, Tele NSR per ICU staff. HL LFA intact/patent. Call light w/in reach, pt call appropriately.
--- NOTE | 2019-01-29 17:31 | P.DS_ITS ---
History of Present Illness Date Patient Seen: 01/28/19 Chief complaint: chest pain x1 day Narrative: Written by Vick LYNCH: This is a 73-year-old female patient with a history coronary artery disease with prior stent placement, hyperlipidemia, hypertension, status post coiling of cerebral aneurysm, hypothyroidism, migraines and depression who presents to the hospital with left shoulder and back pain consistent with her previous cardiac pain for 1 day. The patient reports that she began feeling approximately 1 week ago with weakness and malaise with associated nasal congestion and sore throat. The patient indicates then yesterday she began having left shoulder pain and mid thoracic back pain. She describes this pain is the same as when she had her cardiac workup at [facility] approximately 5 years ago and underwent stenting. The patient had associated palpitations on Monday but none prior or since. The patient does describe having exertional dyspnea for over a month indicating she can walk a few blocks on level ground without shortness of breath however cannot ascend a flight of stairs without stopping. She also reports having weakness of the extremities for over a month but has not been evaluated for these complaints. The patient has been struggling with depression on bupropion and taking sertraline for anger issues since her 15 years ago which is when she states she initially began having heart problems. Patient has had 1 episode of emesis and diarrhea while here on the floor with associated crampy abdominal pain. She denies headaches or dizziness and has no vision or hearing changes. She denies complaints of nasal congestion or sore throat at this time. She denies neck or back pain, chest pain or shoulder pain. She reports no shortness of breath at rest and no cough. She reports mild epigastric discomfort but denies reflux symptoms, hematemesis or or blood in the stool. Denies urinary symptoms frequency urgency or burning. Patient arrived in the ER at 10:24 a.m. this morning at which time she was afebrile a temperature of 97? heart rate of 82, blood pressure of 145/84, respirations of 12 and saturating at 98% on room air. In the ER she had an EKG done which showed normal sinus rhythm without ectopy or block, ST or T-wave changes. She had a chest x-ray taken which shows no cardiopulmonary disease. She has had an echo completed quickly which shows an ejection fraction of 60-65% with no wall motion abnormalities. Further describes left ventricular pressures suggestive of relaxation abnormality. Right ventricle and valve structures reported as grossly normal. On laboratory analysis her CBC is unremarkable with no elevation order left shift and WBCs. Her coags are within normal limits and she has had 2 troponins and CK measurements both of which are negative completed in the ER. Her chemistries are also within normal range with a borderline potassium at 3.5 and good renal function with a BUN of 17 and creatinine 0.9. Her UA is negative for infection. Discharge Providers Date of admission: 01/28/19 13:26 Discharge Date: 01/29/19 Consults: 01/28/19 20:44 Consult to Discharge Planning Routine Comment: Discharge provider: Jenny Plascencia DO Summary Discharge Diagnosis: 1. Acute chest pain, present on admission. Resolved. 2. Coronary artery disease status post stenting, present on admission. Presumed stable. 3. Hypertension, chronic, present on admission. Stable. 4. Hyperlipidemia, chronic, present on admission. Uncontrolled. 5. Hypothyroidism, chronic, present on admission. Stable. 6. Depression, chronic, present on admission. Stable. 7. Acute malaise, present on admission. Resolved. 8. History of cerebral aneurysm. Hospital Course: 1. Acute chest pain, present on admission. Resolved. -Patient presented with left shoulder and back pain consistent with prior chest pain worked up at [facility] 5 years ago resulting in stent placement of unknown vessel. The day prior to admission the patient awoke with chest pain. She has also had dyspnea on exertion for over a month. -Cardiac risk factors include: CAD, hypertension, hyperlipidemia, family history, possible obstructive sleep apnea, and age. -EKG demonstrated sinus rhythm without acute ischemic changes such as ST elevation or depression. -Serial troponin x3 negative. -Echocardiogram demonstrated preserved systolic function with EF of 60-65%, no wall motion abnormalities, LV pressures suggestive of relaxation abnormality. -Continued to monitor on telemetry. No ectopy. -Nuclear medicine stress test did not demonstrate cardiac defect and patient had good exercise tolerance without EKG changes. 2. Coronary artery disease status post stenting, present on admission. Presumed stable. -Continue cardiac medications including: Aspirin 81 mg daily, lisinopril 20 mg daily and hydrochlorothiazide 12.5 mg daily. 3. Hypertension, chronic, present on admission. Stable. -Patient initially with blood pressure 145/84 in ED and subsequently 133/76 on admission to the floor. -Continued lisinopril 20 mg and hydrochlorothiazide 12.5 mg daily. Recommend outpatient monitoring and possible titration up on antihypertensives. 4. Hyperlipidemia, chronic, present on admission. Uncontrolled. -Fasting lipid panel: Total cholesterol 198, triglycerides 177, LDL 122 (goal < 70), and HDL 41. -Continued rosuvastatin 40 mg daily 5. Hypothyroidism, chronic, present on admission. Stable. -Continued levothyroxine 100 mcg daily. 6. Depression, chronic, present on admission. Stable. -Continued bupropion 150 mg daily and sertraline 200 mg daily. 7. Acute malaise, present on admission. Resolved. -Patient complains of URI symptoms of malaise, nasal congestion, nausea, vomiting, crampy abdominal pain, diarrhea, and sore throat for 1 week. -Respiratory viral PCR negative. 8. History of cerebral aneurysm. -Status post coiling without residual neurologic sequelae. Status at Discharge Overall status at discharge: patient is back to baseline Exam Vital Signs (past 8 hours): - 01/29/19 12:00 01/29/19 15:00 Temperature 97.6 F Pulse Rate 75 Respiratory Rate 16 Blood Pressure 123/64 Pulse Oximetry 99 98 Oxygen Delivery Method Room Air Oxygen Flow Rate 0 Narrative Exam Narrative: General: Elderly female sitting in bedside chair and in no acute distress, appears younger than stated age, well-developed, well-nourished, appropriately interactive. HEENT: Normocephalic, atraumatic. External ears without defect. Pupils equal, round, and reactive to light and accommodation. Anicteric sclerae, moist conjunctivae, and no lid lag. Oropharynx free of erythema and cobble stoning with moist mucosa. Neck: Supple with full range of motion. No jugular venous distension. No bruits. No lymphadenopathy or thyromegaly. Cardiovascular: Regular rate and rhythm without murmurs, rubs, or gallops appreciated. Pulmonary: Clear to auscultation bilaterally without crackles, wheezes, or rhonchi. Normal respiratory effort with no use of accessory muscles. Abdomen: Soft, bowel sounds present, nontender, nondistended. No hepatosplenomegaly or masses appreciated. Extremities: No clubbing, cyanosis, or edema. Skin: Normal temperature, turgor, and texture; no rash, ulcers, or subcutaneous nodules appreciated. Neurological: Cranial nerves grossly intact. Psychiatric: Mildly depressed mood and normal affect. Alert and oriented to person, place, and time. Objective Labs Result Diagrams: 01/29/19 06:45 01/29/19 06:45 Labs: Laboratory Results - last 24 hr 01/28/19 01/29/19 01/29/19 22:27 05:26 06:45 WBC 5.6 RBC 4.49 Hgb 13.7 Hct 39.9 MCV 88.9 MCH 30.5 MCHC 34.3 RDW 12.8 Plt Count 293 Neut % (Auto) 55.7 Lymph % (Auto) 30.3 Cotton % (Auto) 10.4 Eos % (Auto) 3.2 Baso % (Auto) 0.4 Neut # (Auto) 3100 Lymph # (Auto) 1700 Cotton # (Auto) 600 Eos # (Auto) 200 Baso # (Auto) 0 Sodium Potassium Chloride Carbon Dioxide BUN Creatinine Estimated GFR BUN/Creatinine Ratio Glucose Calcium Magnesium Total Creatine Kinase 38 CK-MB (CK-2) TNP CK-MB (CK-2) Rel Index TNP Troponin I < 0.012 Triglycerides Cholesterol LDL Cholesterol, Calc HDL Cholesterol Chlamy pneumoniae PCR Not detected Adenovirus (PCR) Not detected B.parapertussis DNA PCR Not detected Coronavirus OC43 (PCR) Not detected Coronavirus HKU1 (PCR) Not detected Coronavirus 229E (PCR) Not detected Coronavirus NL63 (PCR) Not detected Human Metapneumovir PCR Not detected Influenza Type A (PCR) Not detected Influenza Type B (PCR) Not detected M. pneumoniae (PCR) Not detected Parainfluenza 1 (PCR) Not detected Parainfluenza 2 (PCR) Not detected Parainfluenza 3 (PCR) Not detected Parainfluenza 4 (PCR) Not detected RSV (PCR) Not detected Entero/Rhino (PCR) Not detected 01/29/19 06:45 WBC RBC Hgb Hct MCV MCH MCHC RDW Plt Count Neut % (Auto) Lymph % (Auto) Cotton % (Auto) Eos % (Auto) Baso % (Auto) Neut # (Auto) Lymph # (Auto) Cotton # (Auto) Eos # (Auto) Baso # (Auto) Sodium 140 Potassium 3.5 Chloride 100 Carbon Dioxide 29 BUN 17 Creatinine 0.80 Estimated GFR > 60.0 BUN/Creatinine Ratio 21.3 Glucose 92 Calcium 9.7 Magnesium 1.7 Total Creatine Kinase CK-MB (CK-2) CK-MB (CK-2) Rel Index Troponin I Triglycerides 177 H Cholesterol 198 LDL Cholesterol, Calc 122 H HDL Cholesterol 41 Chlamy pneumoniae PCR Adenovirus (PCR) B.parapertussis DNA PCR Coronavirus OC43 (PCR) Coronavirus HKU1 (PCR) Coronavirus 229E (PCR) Coronavirus NL63 (PCR) Human Metapneumovir PCR Influenza Type A (PCR) Influenza Type B (PCR) M. pneumoniae (PCR) Parainfluenza 1 (PCR) Parainfluenza 2 (PCR) Parainfluenza 3 (PCR) Parainfluenza 4 (PCR) RSV (PCR) Entero/Rhino (PCR) Discharge Plan Discharge Plan Patient Disposition: Home Discharge comment: You are being discharged home. Your exercise and perfusion stress test, EKG, echocardiogram and cardiac enzymes did not demonstrate heart attack or impending heart attack. Please continue Crestor 40 mg daily which is the maximum dose available. Recommend lifestyle modification including: diet and exercise as discussed. Diet consists of lean protein, vegetables, and low carbohydrate (good carbohydrates like quinoa, coucous, sweet potatoe, and berries). You were provided a Mediterranean diet handout. In regard to exercise, the [place] [employer] recommends 150 min of moderate intensity exercise per week. Start with small obtainable goals and work your way up. There are several providers in the community taking new patients including Dr. Nieves at [facility] and Dr. David at [facility]. Highly recommend a referral to Cardiology either from your PCP, Casey Underwood, or the provider you establish care with in the community. You need to follow-up with your Casey Underwood or who you establish within the community in the next 1- 2 weeks. Discharge Med Rec/Prescriptions Prescriptions: Continued bupropion HCl 150 mg tablet sustained-release 12 hr 150 mg PO DAILY RF: 0 lisinopril-hydrochlorothiazide 20-12.5 mg tablet 1 tab PO DAILY RF: 0 sertraline 100 mg tablet 200 mg PO DAILY RF: 0 levothyroxine 100 mcg tablet 100 mcg PO DAILY RF: 0 conjugated estrogens 0.3 mg tablet 0.3 mg PO DAILY RF: 0 rosuvastatin 40 mg tablet 40 mg PO DAILY RF: 0 aspirin 81 mg Tablet,Delayed Release (Dr/Ec) 81 mg PO QPM RF: 0 Provider Discharge Instructions Diet: Low-fat, Low-sodium and Low-cholesterol Visit Report/Discharge Packet Instructions: The Mediterranean Diet and Good Health, DI for Chest Pain Discharge Data Attending Provider: Jenny Plascencia Admit Date/Time: 01/28/19 13:26 Discharges patient from system. Discharge Date/Time: 01/29/19 18:25 Quality VTE Deep Vein Thrombosis/Pulmonary Embolism Present on Admission: No
--- NOTE | 2019-01-29 17:49 | DI.NM.S_ITS ---
DATE OF SERVICE: 01/29/2019 PROCEDURE PERFORMED: Exercise treadmill stress only myocardial perfusion imaging study with gating to assess ejection fraction and regional wall motion. ORDERING PROVIDER: Jenny Plascencia DO INDICATIONS: The patient is a female with history of coronary disease admitted for chest discomfort but normal troponins. EXERCISE TREADMILL TESTING: The patient was able to exercise for a total of 5 minutes 8 seconds on a standard Kb protocol suggesting average exercise capacity with an MODESTA of +0% on the active scale. She had normal heart rate and blood pressure response, achieving a maximum heart rate of 128 bpm (86% of her predicted maximum). Her resting ECG is normal, and there are no ischemic changes with stress. There were no arrhythmias. At 4 minutes 3 seconds of exercise, at heart rate of 124 bpm, 20.4 mCi of technetium-99 Myoview was injected and the patient was imaged 15 minutes later using a gated SPECT imaging protocol. Given that her stress images were normal, resting images were not felt to be needed. FINDINGS: 1. Raw Data: There is fairly good myocardial tracer uptake, although significant breast shadows are noted. The lung/heart ratio is normal at 0.25. 2. Quantitative Gated SPECT: Post stress ejection fraction is estimated at 93%, likely an overestimate because of relatively small left ventricular volumes with an end-diastolic volume of 44 mL. There are no regional wall motion abnormalities and specifically the inferior wall has brisk contractility. 3. Myocardial Perfusion Imaging: Post stress supine images show a fairly normal myocardial perfusion pattern, although with a mild defect in the proximal- to-mid inferior wall in a pattern that would be consistent with diaphragmatic attenuation, supported by its complete resolution on the prone images revealing a completely normal perfusion pattern. IMPRESSION: 1. Normal myocardial perfusion study. 2. A mild [id number] inferior perfusion defect that completely resolves on prone imaging consistent with diaphragmatic attenuation. With normal prone perfusion imaging, there is no evidence of ischemia or previous infarction. 3. High-normal left ventricular systolic function with relatively small left ventricular volumes, and no focal wall motion abnormality. 4. Average exercise capacity without angina or ECG evidence of ischemia. Mindi Benson - JEANNETTE/anisha/ab doc#: [id number]/job#: [id number] dd: 01/29/2019 16:56:00 dt: 01/29/2019 17:37:00 DICTATING MD/COPIES TO: Stephen Giron MD; Jenny Plascencia DO COPIES MNE: DIANNA FLORES
--- NOTE | 2019-03-19 11:50 | PC.NURSE ---
Late Entry; Per Jocelyne RN, pt received 1000mL NS IV completed on 01/28/2019 at 1400.
== END 2019-01-29 18:25 | disposition home or self-care (01) ==
LOC: ED 13:21 → AC 13:26
PROVIDERS: Nurse Practitioner Adult Health; Admitting Provider Internal Medicine; Emergency Provider Emergency Medicine; Visit Provider Internal Medicine
DX: R07.9 Chest pain, unspecified (principal); I25.10 Atherosclerotic heart disease of native coronary artery without angina pectoris; R53.1 Weakness; E78.5 Hyperlipidemia, unspecified; I10 Essential (primary) hypertension; E03.9 Hypothyroidism, unspecified; F32.9 Major depressive disorder, single episode, unspecified; Z87.891 Personal history of nicotine dependence; R53.81 Other malaise
CPT/HCPCS: 36415; 36591; 71045; 78451; 80048; 80053; 80061; 81003; 81015; 82550; 82553; 83690; 83735; 84484; 85025; 85610; 85730; 87633; 93005; 93016; 93017; 93018; 93306; 96360; 96361; 96372; 99284; 99285; G0378; A9502; J1644

== ENCOUNTER → 2019-02-11 09:35 | Outpatient (CLI) | payer MEDICARE, SELFPAY ==
[2019-01-28 15:30] VITALS: BMI 24.7
[2019-02-11 10:55] LABS: Free T4, Direct Thyroxine 1.22 ng/dL (0.78-2.19)
[2019-02-11 11:09] LABS: Thyroid Stimulating Hormone 2.26 uIU/mL (0.47-4.68)
[2019-02-14 16:40] LABS: Triiodothyronine T3 Total 80 ng/dL (76-181)
== END ==
PROVIDERS: Visit Provider Internal Medicine
DX: E03.9 Hypothyroidism, unspecified (principal)
CPT/HCPCS: 36415; 84439; 84443; 84480

== ENCOUNTER → 2019-06-13 10:50 | Outpatient (CLI) | payer MEDICARE, SELFPAY ==
[2019-01-28 15:30] VITALS: BMI 24.7
--- NOTE | 2019-06-14 16:29 | PM.PFT.1 ---
Pulmonary Function Test Referral & Results Date Patient Seen: 06/13/19 Requesting provider: Cain David Results: The spirometry demonstrates an FVC of 3.61 L which is 109% of predicted. The FEV1 was measured at 2.47 L which is 99% of predicted. The FEV1/FVC ratio was 68 which is 91% of predicted. Following the administration of bronchodilator there was a 32% improvement in FEF 25-75%. Lung volumes show an SVC of 3.64 L which is 116% of predicted. The diffusing capacity was measured at 19.59 which is 69% of predicted. No hemoglobin value was provided, so no correction for potential anemia could be made, if appropriate. The maximum voluntary ventilation was reduced Interpretation: This study demonstrates probably normal spirometry, although there is evidence of obstructive lung disease based on improvement in FEF 25-75% after bronchodilator as well as shape a flow volume loop. There is more significant reduction in diffusing capacity suggesting more significant disease at the capillary alveolar level as well
== END ==
PROVIDERS: PCP Internal Medicine; Visit Provider Internal Medicine
DX: R06.09 Other forms of dyspnea (principal)
CPT/HCPCS: 94060; 94726; 94729

== ENCOUNTER → 2019-06-20 10:26 | Outpatient (CLI) | payer MEDICARE, SELFPAY ==
[2019-01-28 15:30] VITALS: BMI 24.7
--- NOTE | 2019-06-20 | DI.RAD.S_ITS ---
PROCEDURE: XR CHEST 2V INDICATIONS: Chronic obstructive pulmonary disease, unspecified TECHNIQUE: 2 views of the chest were acquired. COMPARISON: [facility], CR, XR CHEST 1V, 01/28/2019, 10:52. FINDINGS: Surgical changes and devices: Stent projects in the upper mediastinum as before Lungs and pleura: Lungs are clear. No pleural effusions or pneumothorax. A presumed right sided nipple shadow could be confirmed with nipple markers as clinically warranted to exclude pulmonary nodule Mediastinum: Mediastinal contours are normal. Heart size is normal. Bones and chest wall: No suspicious bony abnormalities. Soft tissues appear unremarkable. IMPRESSION: No acute disease. Presumed right sided nipple shadow which could be confirmed with repeat exam utilizing nipple markers as clinically necessary Dictated by: Ha Headley M.D. on 06/20/2019 at 11:22 Approved by: Ha Headley M.D. on 06/20/2019 at 11:23
[2019-06-20 11:32] LABS: Add Manual Diff / Slide Review NO; Basophils Absolute Auto 0 /uL (0-100); Basophils Percent Auto 0.5 % (0-2); Eosinophils Absolute Auto 100 /uL (0-450); Eosinophils Percent Auto 2.2 % (2-4); Hematocrit 41.2 % (36-46); Hemoglobin 13.8 g/dL (12.0-16.0); Lymphocytes Absolute Auto 2200 /uL (1100-4500); Lymphocytes Percent Auto 36.7 % (25-40); Mean Corpuscular HGB Conc 33.4 % (30-36); Mean Corpuscular Hemoglobin 29.9 PG (26-34); Mean Corpuscular Volume 89.5 fL (80-100); Monocytes Absolute Auto 600 /uL (0-900); Monocytes Percent Auto 10.1 % (3-14); Neutrophils Absolute Auto 3100 /uL (1500-7000); Neutrophils Percent Auto 50.5 % (50-75); Platelet Count 271 X10^3/uL (150-400); Red Cell Distribution Width 12.7 % (11.6-14.8); White Blood Cell Count 6.1 X10^3/uL (4.5-11.0)
[2019-06-20 11:50] LABS: Alanine Aminotransferase 34 IU/L (9-52); Albumin 4.4 g/dL (3.5-5.0); Albumin Globulin Ratio 1.1 (1.0-2.8); Alkaline Phosphatase 129 U/L (38-126); Aspartate Aminotransferase 47 IU/L (14-36); BUN Creatinine Ratio 15.6 (6-22); Bilirubin Total 0.4 mg/dL (0.2-1.3); Blood Urea Nitrogen 14 mg/dL (7-17); Calcium 9.9 mg/dL (8.4-10.2); Carbon Dioxide 28 mmol/L (22-32); Chloride 103 mmol/L (98-107); Estimated Glomerular Filt Rate > 60.0 mL/min (>60); Globulin 3.9 g/dL (1.7-4.1); Glucose 87 mg/dL (80-110); HEMOLYSIS < 15 (0-50); Potassium 4.7 mmol/L (3.4-5.1); Sodium 143 mmol/L (137-145); Total Protein 8.3 g/dL (6.3-8.2)
[2019-06-20 12:00] LABS: Free T4, Direct Thyroxine 1.21 ng/dL (0.78-2.19)
[2019-06-20 12:14] LABS: Thyroid Stimulating Hormone 2.15 uIU/mL (0.47-4.68)
[2019-06-22 15:12] LABS: Triiodothyronine T3 Total 100 ng/dL (76-181)
== END ==
PROVIDERS: PCP Internal Medicine; Visit Provider Internal Medicine
DX: J44.9 Chronic obstructive pulmonary disease, unspecified (principal); R53.83 Other fatigue; R63.4 Abnormal weight loss; E03.9 Hypothyroidism, unspecified
CPT/HCPCS: 36415; 71046; 80053; 84439; 84443; 84480; 85025

== ENCOUNTER → 2019-06-24 14:21 | Outpatient (CLI) | payer MEDICARE, SELFPAY ==
[2019-01-28 15:30] VITALS: BMI 24.7
--- NOTE | 2019-06-24 | DI.US.S_ITS ---
PROCEDURE: US CAROTID DOPPLER BI INDICATIONS: STENOSIS TECHNIQUE: Color and pulse Doppler interrogation was performed of both carotid systems, with image documentation and velocity measurements. COMPARISON: None. FINDINGS: Stenosis calculations are based on SRU (Society of Radiologists in Ultrasound) criteria. Right side: Brachial blood pressure: 118/75 mm Hg. Common carotid artery peak systolic velocity: 109 cm/sec. Internal carotid artery peak systolic velocity: 190 cm/sec. Internal carotid artery end diastolic velocity: 67 cm/sec. External carotid artery peak systolic velocity: 159 cm/sec. ICA/CCA peak systolic ratio: 1.7. Hansen scale imaging description: Moderate scattered plaque. Percent internal carotid artery stenosis: 50-69% stenosis. Vertebral artery: Flow direction is antegrade. Left side: Brachial blood pressure: 120/75 mm Hg. Common carotid artery peak systolic velocity: 71 cm/sec. Internal carotid artery peak systolic velocity: Occluded Internal carotid artery end diastolic velocity: N./A. External carotid artery peak systolic velocity: 134 ICA/CCA peak systolic ratio: N./A. Hansen scale imaging description: Heavy scattered plaque. Percent internal carotid artery stenosis: Occluded ICA.. Vertebral artery: Flow direction is antegrade. IMPRESSION: 1. 50-69% right internal carotid artery stenosis. 2. Occluded left internal carotid artery. Dictated by: Tevin Armenta [facility] Interpreted: Ha Headley MD on 06/24/2019 at 15:09 Approved by: Ha Headley M.D. on 06/24/2019 at 15:17
--- NOTE | 2019-06-24 | DI.US.S_ITS ---
PROCEDURE: US THYROID INDICATIONS: HYPOTHYROIDISM TECHNIQUE: Real-time scanning was performed of the thyroid gland, with image documentation. COMPARISON: None. FINDINGS: Right: Thyroid lobe measures 2.3 x 0.5 x 0.4 cm, and is homogeneous in echotexture. Left: Surgically absent. Isthmus: 2.4 mm thick. IMPRESSION: Prior left thyroidectomy. Right thyroid atrophy ACR TI-RADS definitions and recommendations: TI-RADS 1 (benign): 0 points. FNA not needed. TI-RADS 2 (not suspicious): 2 points. FNA not needed. TI-RADS 3 (mildly suspicious): 3 points. * FNA if 2.5 cm or larger, follow up if 1.5 cm or larger (at 1, 3, and 5 years). TI-RADS 4 (moderately suspicious): 4-6 points. * FNA if 1.5 cm or larger, follow up if 1 cm or larger (at 1, 2, 3, and 5 years). TI-RADS 5 (highly suspicious): 7 points or more. * FNA if 1 cm or larger, follow up if 0.5 cm or larger (every year for 5 years). Dictated by: Tevin Armenta [facility] Interpreted: Ha Headley MD on 06/24/2019 at 15:08 Approved by: Ha Headley M.D. on 06/24/2019 at 15:16
== END ==
PROVIDERS: PCP Internal Medicine; Visit Provider Internal Medicine
DX: E03.9 Hypothyroidism, unspecified (principal); R49.0 Dysphonia; E03.4 Atrophy of thyroid (acquired); I65.23 Occlusion and stenosis of bilateral carotid arteries
CPT/HCPCS: 76536; 93880

== ENCOUNTER → 2019-08-21 11:41 | Outpatient (CLI) | payer MEDICARE, SELFPAY ==
[2019-01-28 15:30] VITALS: BMI 24.7
--- NOTE | 2019-08-21 11:46 | DI.CT.S_ITS ---
PROCEDURE: CT CHEST WO CON INDICATIONS: Shortness of breath TECHNIQUE: Noncontrast 5 mm thick sections acquired from the pulmonary apices to the posterior costophrenic angles. 1 mm lung window, 5 mm thick coronal and sagittal and 7 mm axial MIP reformats were then acquired. For radiation dose reduction, the following was used: automated exposure control, adjustment of mA and/or kV according to patient size. COMPARISON: CXR 06/20/2019. FINDINGS: Image quality: Excellent. Lungs and pleura: No acute air space opacities. No mass or significant pulmonary nodules. A few scattered calcified granuloma. No pleural effusions or pneumothorax. Central and peripheral airways are patent and normal in caliber. Mediastinum: Heart size is normal. Coronary artery calcifications. No pericardial effusion. No mediastinal adenopathy by size criteria. Brachiocephalic artery stent. Extensive atherosclerotic plaque in the aortic arch. Thoracic aorta and central pulmonary arteries are normal in size. Esophagus is normal in caliber. No hiatal hernia. Bones and chest wall: No suspicious bony lesions. No vertebral body compression fractures. No axillary or supraclavicular adenopathy by size criteria. Thyroid gland is unremarkable. Abdomen: Visualized upper abdominal solid organs and bowel loops appear normal in the absence of contrast. IMPRESSION: 1. No acute airspace opacity. No pleural effusion. 2. Three-vessel coronary artery calcifications. Brachiocephalic artery stent. Dictated by: Edwin Baez M.D. on 08/21/2019 at 13:49 Approved by: Edwin Baez M.D. on 08/21/2019 at 13:56
== END ==
PROVIDERS: PCP Internal Medicine; Visit Provider Internal Medicine
DX: R06.02 Shortness of breath (principal); I25.10 Atherosclerotic heart disease of native coronary artery without angina pectoris
CPT/HCPCS: 71250

== ENCOUNTER → 2019-09-12 11:43 | Outpatient (CLI) | payer MEDICARE, SELFPAY ==
[2019-01-28 15:30] VITALS: BMI 24.7
--- NOTE | 2019-09-12 | DI.MG.S_ITS ---
BILATERAL DIGITAL SCREENING MAMMOGRAM 3D/2D WITH CAD: 09/12/2019 CLINICAL: Routine screening. Comparison is made to exams dated: 11/22/2013 mammogram and 07/13/2011 mammogram - [facility]. The tissue of both breasts is heterogeneously dense. This may lower the sensitivity of mammography. Current study was also evaluated with a Computer Aided Detection (CAD) system. There are benign calcifications in both breasts. No significant masses, calcifications, or other findings are seen in either breast. There has been no significant interval change. IMPRESSION: There is no mammographic evidence of malignancy. A 1 year screening mammogram is recommended. This exam was interpreted at Station ID: [id number]. NOTE: For mammograms, a report in lay terms will be sent to the patient. Approximately 15% of breast malignancies will not be visualized mammographically. In the management of a palpable breast mass, a negative mammogram must not discourage biopsy of a clinically suspicious lesion. Electronically Signed By: Gonzalo delgado/drew:09/12/2019 15:04:01 letter sent: Normal Exam ACR BI-RADS Category 2: Benign Finding(s) 3342F
== END ==
PROVIDERS: PCP Internal Medicine; Visit Provider Internal Medicine
DX: Z12.31 Encounter for screening mammogram for malignant neoplasm of breast (principal)
CPT/HCPCS: 77063; 77067

== ENCOUNTER → 2021-06-16 10:56 | Outpatient (CLI) | payer MEDICARE, SELFPAY ==
[2019-01-28 15:30] VITALS: BMI 24.7
[2021-06-16 12:03] LABS: COVID19 -Nasal RAPID Negative (Negative)
== END ==
PROVIDERS: PCP Internal Medicine; Referring Provider Internal Medicine; Visit Provider Internal Medicine
DX: Z20.822 Contact with and (suspected) exposure to COVID-19 (principal)
CPT/HCPCS: 87635; C9803

== ENCOUNTER → 2021-06-17 11:00 | Outpatient (CLI) | payer MEDICARE, SELFPAY ==
[2019-01-28 15:30] VITALS: BMI 24.7
[2021-06-17 12:48] LABS: Add Manual Diff / Slide Review NO; Basophils Absolute Auto 0 /uL (0-100); Basophils Percent Auto 0.7 % (0-2); Eosinophils Absolute Auto 100 /uL (0-450); Eosinophils Percent Auto 1.7 % (2-4); Hematocrit 41.7 % (36-46); Hemoglobin 13.8 g/dL (12.0-16.0); Lymphocytes Absolute Auto 2500 /uL (1100-4500); Lymphocytes Percent Auto 43.3 % (25-40); Mean Corpuscular HGB Conc 33.1 % (30-36); Mean Corpuscular Hemoglobin 29.9 PG (26-34); Mean Corpuscular Volume 90.2 fL (80-100); Monocytes Absolute Auto 600 /uL (0-900); Monocytes Percent Auto 9.6 % (3-14); Neutrophils Absolute Auto 2600 /uL (1500-7000); Neutrophils Percent Auto 44.7 % (50-75); Platelet Count 281 X10^3/uL (150-400); Red Blood Cell Count 4.63 X10^6/uL (4.0-5.2); Red Cell Distribution Width 13.3 % (11.6-14.8); White Blood Cell Count 5.9 X10^3/uL (4.5-11.0)
[2021-06-17 13:19] LABS: Alanine Aminotransferase 19 IU/L (<35); Albumin 4.3 g/dL (3.5-5.0); Albumin Globulin Ratio 1.1 (1.0-2.8); Alkaline Phosphatase 120 U/L (38-126); Aspartate Aminotransferase 37 IU/L (14-36); BUN Creatinine Ratio 14.6 (6-22); Bilirubin Total 0.5 mg/dL (0.2-1.3); Blood Urea Nitrogen 19 mg/dL (7-17); Calcium 9.8 mg/dL (8.4-10.2); Carbon Dioxide 25 mmol/L (22-32); Chloride 105 mmol/L (98-107); Cholesterol 185 mg/dL (140-199); Glucose 99 mg/dL (80-110); HDL Cholesterol 76 mg/dL (40-60); HEMOLYSIS < 15 (0-50); LDL Cholesterol Calculated 86 mg/dL (<100); Potassium 4.1 mmol/L (3.4-5.1); Sodium 139 mmol/L (137-145); Total Protein 8.3 g/dL (6.3-8.2); Triglycerides 117 mg/dL (35-150)
--- NOTE | 2021-06-23 11:21 | PM.PFT.1 ---
Pulmonary Function Test Referral & Results Date Patient Seen: 06/17/21 Requesting provider: Maya Ingram Results: The spirometry demonstrates an FVC of 3.51 L which is 108% of predicted. The FEV1 was measured at 2.40 L which is 98% of predicted. The FEV1/FVC ratio was 69 which is 91% of predicted. Following the administration of bronchodilator there was no appreciable change to above normal numbers. Lung volumes show an SVC of 3.57 L which is 115% of predicted. The diffusing capacity was measured at 17.05 which is 60% of predicted. No hemoglobin value was provided, so no correction for potential anemia could be made, if appropriate. The maximum voluntary ventilation was reduced Interpretation: This study demonstrates normal spirometry. There is a reduction in diffusing capacity suggesting disease at the capillary alveolar level There is also reduction in maximum voluntary ventilation which in the absence of abnormalities of spirometry might suggest an element of neuromuscular disease Compared to PFTs performed in June 2019, current study shows slight reduction in diffusing capacity and maximum voluntary ventilation Clinical correlation suggested
== END ==
PROVIDERS: PCP Physician Assistant; Referring Provider Physician Assistant; Visit Provider Physician Assistant
DX: R06.02 Shortness of breath (principal); E78.5 Hyperlipidemia, unspecified; J98.8 Other specified respiratory disorders; Z87.891 Personal history of nicotine dependence
CPT/HCPCS: 36415; 80053; 80061; 85025; 94060; 94726; 94729

== ENCOUNTER → 2021-06-18 07:56 | Outpatient (CLI) | payer MEDICARE, SELFPAY ==
[2019-01-28 15:30] VITALS: BMI 24.7
--- NOTE | 2021-06-18 | DI.CT.S_ITS ---
PROCEDURE: CT CHEST ABD PEL W CON INDICATIONS: SHORTNESS OF BREATH;ABNORMAL WEIGHT LOSS TECHNIQUE: After the administration of intravenous contrast, 5 mm thick sections acquired from the lung apices to the symphysis. 5 mm coronal and sagittal reformats were performed, with additional 7 mm MIP reformats through the lungs. For radiation dose reduction, the following was used: automated exposure control, adjustment of mA and/or kV according to patient size. COMPARISON: None. FINDINGS: Image quality: Excellent. CHEST: Lungs and pleura: Mild to moderate centrilobular emphysema. No acute airspace opacities. No pleural effusions or pneumothorax. Central and peripheral airways appear patent and normal in caliber. Mediastinum: Heart size is normal. No pericardial effusion. Moderately severe coronary artery calcifications. No mediastinal or hilar adenopathy by size criteria. Thoracic aorta and central pulmonary arteries are normal in size. There is a brachiocephalic artery stent from its origin, which appears grossly patent. The proximal left common carotid is patent. A calcified stenosis of the proximal left subclavian artery is likely less than 50%. Esophagus is normal in caliber. No hiatal hernia. Chest wall: No axillary or supraclavicular adenopathy by size criteria. Thyroid gland is unremarkable as visualized . ABDOMEN: Solid organs: Liver is normal in size and enhancement. Gallbladder is unremarkable . Biliary system is non dilated. Pancreas enhances normally. Spleen is normal in size and enhancement. No adrenal nodules. Kidneys demonstrate normal size and enhancement, without hydronephrosis. Peritoneum and bowel: Bowel loops demonstrate normal wall thickness and caliber. No free fluid or air. Nodes and vessels: No retroperitoneal or mesenteric adenopathy by size criteria. Aorta and inferior vena cava are normal in size. Severe aortic atherosclerotic calcifications. 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 Mild celiac stenosis. EVA grossly patent. This is noncalcified. Miscellaneous: No ventral hernias. PELVIS: Genitourinary: Bladder wall thickness is normal. Miscellaneous: No inguinal hernias or adenopathy. Uterus is surgically absent Bones: No suspicious bony lesions. No vertebral body compression fractures. IMPRESSION: 1. Yiau-fa-eoupivqi centrilobular emphysema. 2. No evidence of acute pulmonary process. 3. Moderately severe coronary artery disease. 4. A brachiocephalic artery stent is grossly patent. 5. High-grade stenosis versus a noncalcified occlusion of the proximal superior mesenteric artery can correlate with clinical symptoms of chronic mesenteric ischemia. If this patient has symptoms of fear of food, the requirement of eating multiple small meals, and postprandial pain, consider referral for possible endovascular stenting of the SMA. Dictated by: Asher Dawn M.D. on 06/18/2021 at 14:33 Approved by: Asher Dawn M.D. on 06/18/2021 at 14:42
--- NOTE | 2021-06-18 | DI.ECHO.S_ITS ---
[facility]+ [facility] +---------+ : : [address] : : : : [id number] : : : : Phone: [phone]+ Echocardiogram Report + + :Name: TRISHA PEREZ Study Date: 06/18/2021 Height: 66 in : :[facility] ReadingLocation: Weight: 135 lb : : Gender: Female BSA: 1.7 m2 : :: 1945 Age: 76 yrs BP: 153/100 mmHg: :Reason For Study: SOB : :Ordering Physician: GILBERT, : :LISA Performed By: Stanford Win : :Referring: LISA HUNT : + + Interpretation Summary Normal sinus rhythm. Normal LV size, wall thickness, wall motion and LV systolic function. EF is 55-60%. Normal chamber sizes. No significant valvular abnormalities. Compared to prior study 01/28/2019 no significant changes have occurred. Procedure: A two-dimensional transthoracic echocardiogram with color flow and Doppler was performed. The study quality was technically adequate. Comparison is made with the echocardiogram of 01/28/2019. The patient was in sinus rhythm with heart rates between 79-86 bpm during the exam. Left Ventricle: The left ventricle is normal in size and wall thickness. Left ventricular systolic function is normal. The ejection fraction is estimated to be 55-60%. There are no focal wall motion abnormalities. Diastolic function could not be accurately assessed due to unobtainable data. Right Ventricle: The right ventricle is normal in size and function. Atria: Both atria are normal in size. There is no Doppler evidence for an interatrial shunt. Mitral Valve: The mitral valve is normal in structure and function. There is no mitral regurgitation noted. Aortic Valve: The aortic valve is normal in structure and function. No aortic regurgitation is present. Tricuspid Valve: The tricuspid valve is normal in structure and function. There is a trace or physiologic amount of tricuspid regurgitation. Pulmonary artery pressures cannot be estimated because of the lack of a measurable TR jet velocity but the IVC suggests a CVP of around 3 mmHg. Pulmonic Valve: The pulmonic valve is not well visualized. There is no pulmonic valvular regurgitation. Great Vessels: The aortic root is normal size. The IVC is of normal diameter and collapses greater than 50% with a sniff. This suggests a low right atrial pressure of 3 mm Hg. Pericardium/ Pleura There is no pericardial effusion. There is no pleural effusion. MMode/2D Measurements & Calculations LVIDd: 4.0 cm LVOT diam: 1.9 cm LVIDs: 2.6 cm Ao root diam: 3.5 cm FS: 34.9 % IVSd: 0.68 cm LVPWd: 0.77 cm LV george. diameter/BSA (cm/m^2): 2.4 LV sys. diameter/BSA (cm/m^2): 1.5 LA A2 area: 11.2 cm2 RA long axis: 3.1 cm LA A4 area: 10.2 cm2 RA area: 6.4 cm2 LA length (vol): 4.0 cm RA vol: 11.3 ml LA vol: 24.4 ml RA : 6.7 ml/m2 LA vol index: 14.4 ml/m2 RVD1 (basal): 2.3 cm TAPSE: 1.8 cm Doppler Measurements & Calculations Ao V2 max: 113.1 cm/sec LVOT Max Rudi: 97.7 cm/sec Ao V2 mean: 83.2 cm/sec LV V1 max P.8 mmHg Ao max P.1 mmHg LV V1 VTI: 21.3 cm Ao mean P.0 mmHg MARGOT(I,D): 2.8 cm2 Ao V2 VTI: 22.8 cm MARGOT(V,D): 2.6 cm2 sev ratio: 0.93 MARGOT indexed to BSA (cm^2/m^2): 1.6 MV E max rudi: 70.1 cm/sec PA V2 max: 87.3 cm/sec MV A max rudi: 77.8 cm/sec PA V2 mean: 63.3 cm/sec MV E/A: 0.90 PA mean P.8 mmHg Med Peak E' Rudi: 5.3 cm/sec PA pr(Accel): 46.9 mmHg E/E' med: 13.3 Lat Peak E' Rudi: 7.7 cm/sec E/E' lat: 9.1 E/e' average: 11.2 MV dec time: 0.35 sec SV(LVOT): 63.1 ml Electronically signed by: Nakita Campos M.D. on Reading Physician:06/19/2021 01:45 AM
== END ==
PROVIDERS: PCP Physician Assistant; Referring Provider Physician Assistant; Visit Provider Physician Assistant
DX: R06.02 Shortness of breath (principal); R63.4 Abnormal weight loss; I25.10 Atherosclerotic heart disease of native coronary artery without angina pectoris; J43.2 Centrilobular emphysema
CPT/HCPCS: 71260; 74177; 93306; Q9967

== ENCOUNTER → 2021-08-18 12:27 | Outpatient (CLI) | payer MEDICARE, SELFPAY ==
[2019-01-28 15:30] VITALS: BMI 24.7
[2021-08-18 13:23] LABS: Add Manual Diff / Slide Review NO; Basophils Absolute Auto 0 /uL (0-100); Basophils Percent Auto 0.6 % (0-2); Eosinophils Absolute Auto 0 /uL (0-450); Eosinophils Percent Auto 0.8 % (2-4); Hematocrit 37.6 % (36-46); Hemoglobin 12.2 g/dL (12.0-16.0); Lymphocytes Absolute Auto 1800 /uL (1100-4500); Lymphocytes Percent Auto 32.5 % (25-40); Mean Corpuscular HGB Conc 32.6 % (30-36); Mean Corpuscular Volume 92.1 fL (80-100); Monocytes Absolute Auto 500 /uL (0-900); Monocytes Percent Auto 9.3 % (3-14); Neutrophils Absolute Auto 3200 /uL (1500-7000); Neutrophils Percent Auto 56.8 % (50-75); Platelet Count 385 X10^3/uL (150-400); Red Blood Cell Count 4.08 X10^6/uL (4.0-5.2); Red Cell Distribution Width 14.2 % (11.6-14.8); White Blood Cell Count 5.6 X10^3/uL (4.5-11.0)
[2021-08-18 13:57] LABS: D Dimer 357 ng/mL (<230)
[2021-08-18 14:04] LABS: Alanine Aminotransferase 23 IU/L (<35); Albumin 4.3 g/dL (3.5-5.0); Albumin Globulin Ratio 1.1 (1.0-2.8); Alkaline Phosphatase 117 U/L (38-126); Aspartate Aminotransferase 42 IU/L (14-36); BUN Creatinine Ratio 19.1 (6-22); Bilirubin Total 0.4 mg/dL (0.2-1.3); Blood Urea Nitrogen 21 mg/dL (7-17); Calcium 9.3 mg/dL (8.4-10.2); Carbon Dioxide 27 mmol/L (22-32); Chloride 104 mmol/L (98-107); Estimated Glomerular Filt Rate 48.6 mL/min (>60); Globulin 3.9 g/dL (1.7-4.1); Glucose 99 mg/dL (80-110); HEMOLYSIS < 15 (0-50); Potassium 3.9 mmol/L (3.4-5.1); Sodium 140 mmol/L (137-145); Total Protein 8.2 g/dL (6.3-8.2)
== END ==
PROVIDERS: PCP Physician Assistant; Referring Provider Physician Assistant; Visit Provider Physician Assistant
DX: R06.02 Shortness of breath (principal)
CPT/HCPCS: 36415; 80053; 85025; 85379

== ENCOUNTER → 2021-08-24 15:33 | Outpatient (CLI) | payer MEDICARE, SELFPAY ==
[2019-01-28 15:30] VITALS: BMI 24.7
== END ==
PROVIDERS: PCP Physician Assistant; Referring Provider Physician Assistant; Visit Provider Physician Assistant
DX: R06.02 Shortness of breath (principal)
CPT/HCPCS: 94618

== ENCOUNTER → 2021-11-25 11:15 | Outpatient (CLI) | payer MEDICARE, SELFPAY ==
[2019-01-28 15:30] VITALS: BMI 24.7
[2021-11-25 12:46] LABS: Appearance Urine UA CLEAR; Bilirubin Urine UA NEGATIVE (NEGATIVE); Color Urine UA YELLOW; Glucose Urine UA NEGATIVE (Negative); Ketones Urine UA NEGATIVE (NEGATIVE); Leukocyte Esterase Urine UA NEGATIVE (NEGATIVE); Nitrite Urine UA NEGATIVE (Negative); Occult Blood Urine UA NEGATIVE (Negative); Protein Urine UA NEGATIVE (Negative); Specific Gravity Urine UA 1.015 (1.000-1.035); Urobilinogen Urine UA 0.2 E.U./dL (0.2)
[2021-11-25 12:54] LABS: pH Urine UA 7.5 (4.5-8.0)
[2021-11-25 13:04] LABS: Bacteria Urine None Seen; Culture Indicated Urine Cult Not Indicated; RBC Urine None Seen (0-5/HPF); Squamous Epithelial Cell Urine 0-1 /HPF (0-5/HPF); WBC Urine 0-1/HPF (0-5/HPF)
== END ==
PROVIDERS: PCP Physician Assistant; Referring Provider Physician Assistant; Visit Provider Physician Assistant
DX: N39.0 Urinary tract infection, site not specified (principal)
CPT/HCPCS: 81001

== ENCOUNTER → 2022-07-19 08:22 | Outpatient (CLI) | payer MEDICARE, SELFPAY ==
[2019-01-28 15:30] VITALS: BMI 24.7
[2022-07-19 09:33] LABS: Add Manual Diff / Slide Review NO; Basophils Absolute Auto 0 /uL (0-100); Basophils Percent Auto 0.7 % (0-2); Eosinophils Absolute Auto 100 /uL (0-450); Eosinophils Percent Auto 1.3 % (2-4); Hematocrit 38.2 % (36-46); Hemoglobin 13.1 g/dL (12.0-16.0); Lymphocytes Absolute Auto 1600 /uL (1100-4500); Lymphocytes Percent Auto 29.6 % (25-40); Mean Corpuscular HGB Conc 34.3 % (30-36); Mean Corpuscular Hemoglobin 29.9 PG (26-34); Mean Corpuscular Volume 87.4 fL (80-100); Monocytes Absolute Auto 600 /uL (0-900); Monocytes Percent Auto 11.5 % (3-14); Neutrophils Absolute Auto 3000 /uL (1500-7000); Neutrophils Percent Auto 56.9 % (50-75); Platelet Count 282 X10^3/uL (150-400); Red Blood Cell Count 4.37 X10^6/uL (4.0-5.2); Red Cell Distribution Width 13.7 % (11.6-14.8); White Blood Cell Count 5.2 X10^3/uL (4.5-11.0)
[2022-07-19 09:56] LABS: Alanine Aminotransferase 20 IU/L (<35); Albumin 4.1 g/dL (3.5-5.0); Alkaline Phosphatase 124 U/L (38-126); Aspartate Aminotransferase 36 IU/L (14-36); BUN Creatinine Ratio 16.1 (6-22); Bilirubin Total 0.6 mg/dL (0.2-1.3); Blood Urea Nitrogen 22 mg/dL (7-17); Calcium 8.8 mg/dL (8.4-10.2); Carbon Dioxide 26 mmol/L (22-32); Chloride 106 mmol/L (98-107); Cholesterol 170 mg/dL (140-199); Estimated Glomerular Filt Rate 40 mL/min (>60); Globulin 4.1 g/dL (1.7-4.1); Glucose 90 mg/dL (80-110); HDL Cholesterol 62 mg/dL (40-60); HEMOLYSIS < 15 (0-50); LDL Cholesterol Calculated 90 mg/dL (<100); Potassium 3.6 mmol/L (3.4-5.1); Sodium 142 mmol/L (137-145); Total Protein 8.2 g/dL (6.3-8.2); Triglycerides 92 mg/dL (35-150)
[2022-07-19 09:57] LABS: Creatinine Urine Random 193.2 mg/dL
[2022-07-19 10:09] LABS: Vitamin D 25 Hydroxy (D3) 20.5 ng/mL (30.0-100.0)
[2022-07-19 10:13] LABS: Microalbumin Urine Random 47.5 mg/dL (0-1.6)
[2022-07-19 10:25] LABS: Microalbumi Creatinin Ratio Ur 245.9 ug/mg CR (<30)
[2022-07-19 10:26] LABS: TSH w/ Reflex to FT4 0.31 uIU/mL (0.47-4.68)
[2022-07-19 10:58] LABS: Free T4, Direct Thyroxine 1.72 ng/dL (0.78-2.19)
[2022-07-19 10:59] LABS: Folate 10.6 ng/mL (2.76-20.0); Vitamin B12 283 pg/mL (239-931)
== END ==
PROVIDERS: PCP Family Medicine; Referring Provider Family Medicine; Visit Provider Family Medicine
DX: I10 Essential (primary) hypertension (principal); I25.10 Atherosclerotic heart disease of native coronary artery without angina pectoris; E03.9 Hypothyroidism, unspecified; E78.5 Hyperlipidemia, unspecified; E56.9 Vitamin deficiency, unspecified; M85.80 Other specified disorders of bone density and structure, unspecified site; Z79.899 Other long term (current) drug therapy; E55.9 Vitamin D deficiency, unspecified
CPT/HCPCS: 36415; 80053; 80061; 82043; 82306; 82570; 82607; 82746; 84439; 84443; 85025

== ENCOUNTER → 2022-10-10 09:22 | Outpatient (CLI) | payer MEDICARE, SELFPAY ==
[2019-01-28 15:30] VITALS: BMI 24.7
[2022-10-10 13:42] LABS: Creatinine Urine Random 205.3 mg/dL
[2022-10-10 13:56] LABS: Add Manual Diff / Slide Review NO; Basophils Absolute Auto 0 /uL (0-100); Basophils Percent Auto 0.3 % (0-2); Eosinophils Absolute Auto 100 /uL (0-450); Eosinophils Percent Auto 1.2 % (2-4); Hematocrit 41.6 % (36-46); Hemoglobin 13.8 g/dL (12.0-16.0); Lymphocytes Absolute Auto 1800 /uL (1100-4500); Lymphocytes Percent Auto 27.9 % (25-40); Mean Corpuscular HGB Conc 33.1 % (30-36); Mean Corpuscular Hemoglobin 29.3 PG (26-34); Mean Corpuscular Volume 88.7 fL (80-100); Monocytes Absolute Auto 600 /uL (0-900); Monocytes Percent Auto 8.8 % (3-14); Neutrophils Absolute Auto 4000 /uL (1500-7000); Neutrophils Percent Auto 61.8 % (50-75); Platelet Count 280 X10^3/uL (150-400); Red Blood Cell Count 4.69 X10^6/uL (4.0-5.2); Red Cell Distribution Width 14.1 % (11.6-14.8); White Blood Cell Count 6.4 X10^3/uL (4.5-11.0)
[2022-10-10 14:29] LABS: Microalbumi Creatinin Ratio Ur 103.7 ug/mg CR (<30); Microalbumin Urine Random 21.3 mg/dL (0-1.6)
[2022-10-10 16:52] LABS: HEMOLYSIS < 15 (0-50)
[2022-10-10 17:04] LABS: Alanine Aminotransferase 18 IU/L (<35); Albumin 4.4 g/dL (3.5-5.0); Albumin Globulin Ratio 1.3 (1.0-2.8); Alkaline Phosphatase 107 U/L (38-126); Aspartate Aminotransferase 29 IU/L (14-36); BUN Creatinine Ratio 16.4 (6-22); Bilirubin Total 0.4 mg/dL (0.2-1.3); Blood Urea Nitrogen 21 mg/dL (7-17); Calcium 9.7 mg/dL (8.4-10.2); Carbon Dioxide 29 mmol/L (22-32); Chloride 99 mmol/L (98-107); Cholesterol 174 mg/dL (140-199); Estimated Glomerular Filt Rate 44 mL/min (>60); Globulin 3.4 g/dL (1.7-4.1); Glucose 90 mg/dL (80-110); HDL Cholesterol 73 mg/dL (40-60); LDL Cholesterol Calculated 81 mg/dL (<100); Potassium 4.2 mmol/L (3.4-5.1); Sodium 139 mmol/L (137-145); Total Protein 7.8 g/dL (6.3-8.2); Triglycerides 98 mg/dL (35-150)
[2022-10-10 17:29] LABS: TSH w/ Reflex to FT4 0.41 uIU/mL (0.47-4.68)
[2022-10-10 20:08] LABS: Vitamin D 25 Hydroxy (D3) 51.4 ng/mL (30.0-100.0)
[2022-10-11 17:18] LABS: Folate 11.7 ng/mL (2.76-20.0); Vitamin B12 244 pg/mL (239-931)
[2022-10-11 17:26] LABS: Free T4, Direct Thyroxine 2.49 ng/dL (0.78-2.19)
== END ==
PROVIDERS: PCP Family Medicine; Referring Provider Family Medicine; Visit Provider Family Medicine
DX: I10 Essential (primary) hypertension (principal); E78.5 Hyperlipidemia, unspecified; I25.10 Atherosclerotic heart disease of native coronary artery without angina pectoris; E03.9 Hypothyroidism, unspecified; E56.9 Vitamin deficiency, unspecified
CPT/HCPCS: 36415; 80053; 80061; 82043; 82306; 82570; 82607; 82746; 84439; 84443; 85025

== ENCOUNTER → 2022-11-16 11:33 | Outpatient (CLI) | payer MEDICARE, SELFPAY ==
[2019-01-28 15:30] VITALS: BMI 24.7
[2022-11-16 13:53] LABS: Free T4, Direct Thyroxine 1.33 ng/dL (0.78-2.19)
[2022-11-16 14:07] LABS: Thyroid Stimulating Hormone 1.13 uIU/mL (0.47-4.68)
== END ==
PROVIDERS: PCP Family Medicine; Referring Provider Family Medicine; Visit Provider Family Medicine
DX: E03.9 Hypothyroidism, unspecified (principal)
CPT/HCPCS: 36415; 84439; 84443

== ENCOUNTER → 2023-01-19 12:25 | Outpatient (CLI) | payer MEDICARE, SELFPAY ==
[2019-01-28 15:30] VITALS: BMI 24.7
[2023-01-19 13:00] LABS: Appearance Urine UA CLEAR; Bilirubin Urine UA NEGATIVE (NEGATIVE); Color Urine UA YELLOW; Glucose Urine UA NEGATIVE (Negative); Ketones Urine UA NEGATIVE (NEGATIVE); Leukocyte Esterase Urine UA NEGATIVE (NEGATIVE); Nitrite Urine UA NEGATIVE (Negative); Occult Blood Urine UA NEGATIVE (Negative); Protein Urine UA NEGATIVE (Negative); Urobilinogen Urine UA 0.2 E.U./dL (0.2)
[2023-01-19 13:02] LABS: pH Urine UA 5.5 (4.5-8.0)
[2023-01-19 13:15] LABS: Bacteria Urine None Seen; Culture Indicated Urine Cult Not Indicated; RBC Urine None Seen (0-5/HPF); Squamous Epithelial Cell Urine 0-1 /HPF (0-5/HPF); WBC Urine 0-1/HPF (0-5/HPF)
== END ==
PROVIDERS: PCP Family Medicine; Referring Provider Family Medicine; Visit Provider Family Medicine
DX: R54 Age-related physical debility (principal); R82.90 Unspecified abnormal findings in urine
CPT/HCPCS: 81001

== ENCOUNTER 2023-02-24 11:38 | Observation (INO) | payer MEDICARE, SELFPAY ==
[2019-01-28 15:30] VITALS: BMI 24.7
[2023-02-24] VITALS (64 sets, daily range): BP systolic 124–223; BP diastolic 49–120; PULSE 71–98; RESP 18–37; TEMP 36.3–36.6; O2SAT 89–100; BMI 20.3; BMI 21.1
--- NOTE | 2023-02-24 11:58 | DI.RAD.S_ITS ---
PROCEDURE: XR CHEST 1V INDICATIONS: chest pain TECHNIQUE: One view of the chest was acquired. COMPARISON: [facility], CR, XR CHEST 2V, 06/20/2019, 10:31. FINDINGS: Surgical changes and devices: None. Lungs and pleura: Lungs are clear. No pleural effusions or pneumothorax. Mediastinum: Mediastinal contours appear normal. Heart size is normal. Bones and chest wall: No suspicious bony lesions. Overlying soft tissues appear unremarkable. IMPRESSION: No acute pulmonary process. Dictated by: Annie Lee M.D. on 02/24/2023 at 12:53 Approved by: Annie Lee M.D. on 02/24/2023 at 13:02
--- NOTE | 2023-02-24 11:59 | DI.CT.S_ITS ---
PROCEDURE: CT HEAD/BRAIN WO CON INDICATIONS: headache, htn TECHNIQUE: Noncontrast 4.5 mm thick angled axial sections acquired from the foramen magnum to the vertex, with coronal and sagittal reformats. For radiation dose reduction, the following was used: automated exposure control, adjustment of mA and/or kV according to patient size. COMPARISON: None. FINDINGS: Image quality: Metallic streak artifact is present secondary to presumed aneurysm coil. CSF spaces: Basal cisterns are patent. No extra-axial fluid collections. The ventricles are symmetric in size and shape. Brain: No intracranial bleeds or masses. Significant metallic streak artifact from presumed aneurysm coil is present anterior and slightly superior to the gloria. There is cerebral volume loss for age, with resultant ventricular and sulcal prominence. There are periventricular and deep white matter chronic small vessel ischemic changes. There is intracranial internal carotid artery atherosclerosis. Skull and face: Calvarium and visualized facial bones appear intact, without suspicious lesions. Sinuses: Visualized sinuses and mastoids are clear. IMPRESSION: 1. No acute intracranial process. 2. Moderate atrophy and chronic microvascular ischemic changes. Dictated by: Annie Lee M.D. on 02/24/2023 at 12:46 Approved by: Annie Lee M.D. on 02/24/2023 at 12:47
[2023-02-24 12:34] LABS: Add Manual Diff / Slide Review NO; Basophils Absolute Auto 100 /uL (0-100); Basophils Percent Auto 0.8 % (0-2); Eosinophils Absolute Auto 100 /uL (0-450); Hematocrit 36.7 % (36-46); Hemoglobin 12.4 g/dL (12.0-16.0); Lymphocytes Absolute Auto 2000 /uL (1100-4500); Lymphocytes Percent Auto 28.8 % (25-40); Mean Corpuscular HGB Conc 33.7 % (30-36); Mean Corpuscular Hemoglobin 28.2 PG (26-34); Mean Corpuscular Volume 83.5 fL (80-100); Monocytes Absolute Auto 600 /uL (0-900); Monocytes Percent Auto 8.1 % (3-14); Neutrophils Absolute Auto 4200 /uL (1500-7000); Neutrophils Percent Auto 61.3 % (50-75); Platelet Count 281 X10^3/uL (150-400); Red Blood Cell Count 4.39 X10^6/uL (4.0-5.2); Red Cell Distribution Width 14.3 % (11.6-14.8); White Blood Cell Count 6.9 X10^3/uL (4.5-11.0)
[2023-02-24 12:39] LABS: Prothrombin Time 11.7 SECONDS (10.1-12.7)
[2023-02-24 12:42] LABS: PTT Partial Thromboplastin Tim 29 SECONDS (26-36)
[2023-02-24 12:43] LABS: Alanine Aminotransferase 21 IU/L (<35); Albumin 4.5 g/dL (3.5-5.0); Albumin Globulin Ratio 1.1 (1.0-2.8); Alkaline Phosphatase 109 U/L (38-126); Aspartate Aminotransferase 43 IU/L (14-36); BUN Creatinine Ratio 25.4 (6-22); Bilirubin Total 0.7 mg/dL (0.2-1.3); Blood Urea Nitrogen 31 mg/dL (7-17); Calcium 9.4 mg/dL (8.4-10.2); Carbon Dioxide 26 mmol/L (22-32); Chloride 98 mmol/L (98-107); Creatine Kinase 321 U/L (30-135); Estimated Glomerular Filt Rate 46 mL/min (>60); Globulin 4.1 g/dL (1.7-4.1); Glucose 84 mg/dL (80-110); HEMOLYSIS < 15 (0-50); Lipase 73 U/L (23-300); Potassium 3.4 mmol/L (3.4-5.1); Sodium 135 mmol/L (137-145); Total Protein 8.6 g/dL (6.3-8.2)
[2023-02-24 12:55] LABS: Troponin I < 0.012 ng/mL (0.01-0.034)
--- NOTE | 2023-02-24 13:08 | DI.CT.S_ITS ---
PROCEDURE: CT ANGIO HEAD AND NECK INDICATIONS: Headache/ataxia TECHNIQUE: Pre-contrast 4.5 mm thick sections acquired from the foramen magnum to the vertex. After the administration of intravenous contrast, 1 mm thick sections acquired from the aortic arch through the [place]. Post-contrast 4.5 mm thick sections then re-acquired from the foramen magnum to the vertex. 3-dimensional cgorwhi-oopbwelhc-jrmjqbkcdq (MIP) and/or volume rendering reformats were acquired of the central intracranial vasculature and neck separately. For radiation dose reduction, the following was used: automated exposure control, adjustment of mA and/or kV according to patient size. COMPARISON: [facility], US, US CAROTID DOPPLER BI, 06/24/2019, 14:39. [facility], CT, CT HEAD/BRAIN WO CON, 02/24/2023, 12:14. FINDINGS: Image quality: Artifact is present presumably from central aneurysm clip. BRAIN: CT brain old HEAD CT ANGIOGRAPHY: Anterior circulation: There is occlusion of the internal carotid artery on the left from the origin. This was also present on carotid ultrasound in 2019. The flow within the paired anterior cerebral arteries is normal and symmetric. The flow within the middle cerebral arteries is normal and symmetric. The anterior communicating artery is seen. No aneurysms are seen. Posterior circulation: Vertebral arteries are codominant. There is calcification bilaterally within the carotid arteries predominantly in the V4 segment with multiple areas of narrowing ranging from 50-60%. Basilar artery is unremarkable. Flow within the posterior cerebral arteries is normal and symmetric. No aneurysms are seen. NECK CT ANGIOGRAPHY: The origins of the left and right common and external carotid arteries demonstrate no areas of hemodynamically significant stenosis, vascular occlusion or aneurysmal dilation. Left internal carotid artery is occluded at the origin. There is calcification at the origin of the right internal carotid artery with approximately 65-70% occlusion. Origins of the left and right vertebral arteries demonstrate no areas of hemodynamically significant stenosis, vascular occlusion or aneurysmal dilation. Aortic arch demonstrates conventional anatomy. Stent is noted in the thyrocervical trunk and appears patent. IMPRESSION: 1. No acute intracranial process. 2. Moderate atrophy and chronic microvascular ischemic changes. 3. 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 4. 65-70% stenosis of the right internal carotid artery at the origin. Any quantitative measurements of stenosis were performed using NASCET criteria. Dictated by: Annie Lee M.D. on 02/24/2023 at 14:58 Approved by: Annie Lee M.D. on 02/24/2023 at 15:05
[2023-02-24 13:14] LABS: CKMB % Relative Index 1.5 % (1.5-5.0); Creatine Kinase MB 4.94 ng/mL (<2.37)
[2023-02-24] MEDS: lisinopriL 5 MG TABLET PO ×2 (13:26→16:01)
--- NOTE | 2023-02-24 13:30 | PC.NURSE ---
Patient states she has had confusion getting worse over the last 1-2 weeks. Tremor noted in arms bilaterally patient states she noticed that around same time of confusion. Patient has had multiple falls over the last couple days, bruising easier. Noted bruises to arms bilaterally. Patient on plavix but was unaware that it is a blood thinner. Education provided about blood thinner use. Patietn state sshe feels much weaker in her right leg and states she things she drifts to right, has been using a cane. Patient states increase in headaches. Patient history of brain aneurysm. 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
[2023-02-24 13:41] LABS: Amorphous Sediment Urine 1+; Bacteria Urine Moderate (10-30); Culture Indicated Urine Specimen Cultured; RBC Urine 0-1/HPF (0-5/HPF); Squamous Epithelial Cell Urine 1-5 /HPF (0-5/HPF); WBC Urine 1-5/HPF (0-5/HPF)
--- NOTE | 2023-02-24 14:09 | ED.GENADULT ---
HPI - General Adult General Chief complaint: Hypertension Stated complaint: ballance issues/ high BP/ vomiting Time Seen by Provider: 02/24/23 13:06 Source: patient and family Mode of arrival: Ambulatory History of Present Illness HPI narrative: Patient here with ex-. Complains of headache and high blood pressure and tremors for the past 2 weeks. Also with right-sided weakness and balance issues. Has had nausea and vomiting as well. Patient has history of brain aneurysm coiling over a decade ago at [facility]. Has been doing well. At that time she was having headaches. Patient feels like she is drifting towards the right when she walks. Blood pressure noted. She states she was weaned down on her blood pressure medication at least 3 months ago because her blood pressure was very labile. Related Data Home Medications Medication Instructions Recorded Confirmed aspirin 81 mg tablet,delayed 81 mg PO QPM 01/28/19 03/06/23 release albuterol sulfate 90 mcg/actuation 1 inh inhalation Q4HR PRN 02/24/23 03/06/23 aerosol inhaler Shortness Of Breath bupropion HCl 300 mg 24 hr tablet, 300 mg PO DAILY 02/24/23 03/06/23 extended release clopidogrel 75 mg tablet 75 mg PO DAILY 02/24/23 03/06/23 fluticasone propionate 230 2 inh inhalation BID 02/24/23 03/06/23 mcg-salmeterol 21 mcg/actuation HFA inhaler (Advair HFA) levothyroxine 75 mcg tablet 75 mcg PO QAM 02/24/23 03/06/23 ondansetron HCl 4 mg tablet 4 mg PO Q12HR PRN nausea/vomiting 02/24/23 03/06/23 Previous Rx's Medication Instructions Recorded atorvastatin 20 mg tablet (Lipitor) 80 mg PO BEDTIME #30 tabs 02/26/23 lisinopril 5 mg tablet 5 mg PO BID #60 tabs 02/26/23 metoprolol succinate 25 mg 25 mg PO DAILY #30 tabs 02/26/23 tablet,extended release 24 hr nitroglycerin 0.4 mg sublingual 0.4 mg sublingual [id number] PRN 02/26/23 tablet (Nitrostat) Chest Pain #15 tabs Allergies Allergy/AdvReac Type Severity Reaction Status Date / Time No Known Drug Allergies Allergy Verified 03/06/23 10:57 Review of Systems Review of Systems Narrative: GENERAL: negative chills, fatigue, malaise, fever, sweats. HEENT: negative sinus pain, ear pain, sore throat RESPIRATORY: negative dyspnea, cough CARDIOVASCULAR: negative chest pain, palpitations GASTROINTESTINAL: negative nausea, vomiting, abdominal pain : negative dysuria, frequency, hematuria MUSCULOSKELETAL: negative muscle or bony pain SKIN: negative rash, skin lesions NEUROLOGIC: negative weakness, numbness, clear speech no facial droop light touch intact bilateral face hands and legs with strong equal survey analyst. Fast exam is negative. There is slight resting tremors of the fingers bilaterally. It does resolve with gripping and movement. 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 Mother Respiratory disease Cerebral aneurysm Brother In good health Social History household members: none Smoking Status: Former smoker alcohol intake: never substance use type: does not use Smoking Status: Former smoker alcohol intake frequency: 0-2 drinks per day Substance Use Type: does not use Exam Initial Vital Signs Initial Vital Signs: Vital Signs Temperature 97.4 F L 02/24/23 11:40 Pulse Rate 78 02/24/23 11:40 Respiratory Rate 18 02/24/23 11:40 Blood Pressure 217/88 H 02/24/23 11:40 Pulse Oximetry 95 02/24/23 11:40 Oxygen Delivery Method Room Air 02/24/23 11:40 Scores NIH Stroke Scale Level of Conciousness: Alert, keenly responsive Ask month/age: Answers both questions correctly. Open/close eyes, close hand: Performs both tasks correctly Best gaze horizontal: Normal Visual bailey: No visual loss Facial palsy: Normal symetrical movement Left arm drift: No drift for full 10 sec Right arm drift: No drift for full 10 sec Left leg drift: No drift for full 5 sec Right leg drift: No drift for full 5 sec Limb ataxia: Absent Sensory on face/arms/legs: Normal, no sensory loss Best language: No aphasia, normal Dysarthria: Normal Extinction or inattention: No abnormality Total NIH Stroke scale score: 0 Course Orders Ordered: Discontinued Medications Acetaminophen (Acetaminophen 325 Mg Tablet) 650 mg PO Q6H PRN PRN Reason: Fever/Mild Pain (1-3) Last Admin: 02/26/23 08:30 Dose: 650 mg Documented By: CHATA Hydrocodone Bitart/Acetaminophen (Hydrocodone/Acet 5/325 Tablet) 1 tab PO Q4H PRN PRN Reason: Pain, Moderate (4-)10 Al Hydrox/Mg Hydrox/Simethicone (Mag Hydrox/Alum/Simeth 30 Ml Udc) 30 ml PO Q6HR PRN PRN Reason: Dyspepsia Albuterol (Albuterol Hfa Mdi 60 Puff/8 Gm Inhaler) 1 puff INH Q4HR PRN PRN Reason: Shortness Of Breath Aspirin (Aspirin Ec 81 Mg Tablet) 81 mg PO QPM [facility] Last Admin: 02/25/23 17:16 Dose: 81 mg Documented By: NUBIA Atorvastatin Calcium (Atorvastatin 20 Mg Tablet) 20 mg PO BEDTIME [facility] Last Admin: 02/25/23 20:51 Dose: 20 mg Documented By: Admin: 02/24/23 22:50 Dose: 20 mg Documented By: NUBIA(2) Atorvastatin Calcium (Atorvastatin 20 Mg Tablet) 80 mg PO BEDTIME [facility] Bupropion HCl (Bupropion Xl 150 Mg Tab) 300 mg PO DAILY [facility] Last Admin: 02/26/23 09:16 Dose: 300 mg Documented By: Admin: 02/25/23 09:59 Dose: 300 mg Documented By: NUBIA Calcium Carbonate (Calcium Carbonate 500 Mg Tab) 1,000 mg PO Q4HR PRN PRN Reason: Dyspepsia Clopidogrel Bisulfate (Clopidogrel 75 Mg Tablet) 75 mg PO DAILY [facility] Last Admin: 02/26/23 09:16 Dose: 75 mg Documented By: Admin: 02/25/23 09:59 Dose: 75 mg Documented By: NUBIA Diazepam (Diazepam 2 Mg Tablet) 2 mg PO BEDTIME [facility] Last Admin: 02/25/23 20:50 Dose: 2 mg Documented By: Enoxaparin Sodium (Enoxaparin 40 Mg/0.4 Ml Syringe) 40 mg SUBCUT DAILY [facility] Last Admin: 02/26/23 09:16 Dose: 40 mg Documented By: Admin: 02/25/23 09:58 Dose: 40 mg Documented By: NUBIA Sodium Chloride (Normal Saline 0.9%) 500 mls @ 1,000 mls/hr IV BOLUS ONE Stop: 02/24/23 14:44 Last Infusion: 02/24/23 14:43 Dose: 0 mls/hr Documented By: Admin: 02/24/23 14:20 Dose: 1,000 mls/hr Documented By: EDUARDO Sodium Chloride (Normal Saline 0.9%) 1,000 mls @ 60 mls/hr IV CONT [facility] Stop: 02/25/23 08:00 Last Admin: 02/24/23 22:50 Dose: 60 mls/hr Documented By: NUBIA(2) Ceftriaxone Sodium 2,000 mg/ (Sodium Chloride) 100 mls @ 200 mls/hr IV NOW ONE Stop: 02/25/23 04:29 Last Admin: 02/25/23 05:01 Dose: 200 mls/hr Documented By: NUBIA(2) Ceftriaxone Sodium 1,000 mg/ (Sodium Chloride) 100 mls @ 200 mls/hr IV Q24H [facility] Last Admin: 02/25/23 12:28 Dose: 200 mls/hr Documented By: NUBIA Labetalol HCl (Labetalol 20 Mg/4 Ml Syringe) 5 mg IV NOW ONE; Protocol Stop: 02/24/23 17:17 Last Admin: 02/24/23 17:25 Dose: 5 mg Documented By: EDUARDO Levothyroxine Sodium (Levothyroxine 75 Mcg Tablet) 75 mcg PO DAILY [facility] Last Admin: 02/26/23 09:16 Dose: 75 mcg Documented By: Admin: 02/25/23 10:00 Dose: 75 mcg Documented By: Admin: 02/24/23 22:50 Dose: Not Given Documented By: NUBIA(2) Lisinopril (Lisinopril 5 Mg Tablet) 5 mg PO NOW ONE Stop: 02/24/23 13:18 Last Admin: 02/24/23 13:26 Dose: 5 mg Documented By: EDUARDO Lisinopril (Lisinopril 5 Mg Tablet) 5 mg PO NOW ONE Stop: 02/24/23 15:54 Last Admin: 02/24/23 16:01 Dose: 5 mg Documented By: CASS Lisinopril (Lisinopril 5 Mg Tablet) 5 mg PO BID [facility] Lisinopril (Lisinopril 5 Mg Tablet) 5 mg PO BID [facility] Last Admin: 02/26/23 09:16 Dose: 5 mg Documented By: Admin: 02/25/23 20:49 Dose: 5 mg Documented By: Admin: 02/25/23 09:59 Dose: 5 mg Documented By: NUBIA Metoprolol Succinate (Metoprolol Er 25 Mg Tablet) 25 mg PO NOW ONE Stop: 02/24/23 19:21 Last Admin: 02/24/23 19:37 Dose: 25 mg Documented By: MERLINE Metoprolol Succinate (Metoprolol Er 25 Mg Tablet) 25 mg PO DAILY [facility] Last Admin: 02/26/23 14:18 Dose: 25 mg Documented By: JERMAINE Morphine Sulfate (Morphine 2 Mg/Ml Inj) 2 mg IV Q5MIN PRN PRN Reason: Chest Pain Naloxone HCl (Naloxone 0.4 Mg/Ml Vial) 0.2 mg IV Q2MIN PRN PRN Reason: Opiate Reversal Nitroglycerin (Nitroglycerin 0.4 Mg Sl Tab) 0.4 mg SL [id number] PRN PRN Reason: Chest Pain Non-Formulary Medication (Fluticasone Propion-Salmeterol [Advair Hfa]) 2 inhalation INHALATION BID [facility] Last Admin: 02/25/23 09:00 Dose: Not Given Documented By: Admin: 02/24/23 22:51 Dose: Not Given Documented By: NUBIA(2) Home Medication (Storage) 0 each PO PRN PRN PRN Reason: Home Medication Storage Ondansetron HCl (Ondansetron 4 Mg Odt) 4 mg PO Q8HR PRN PRN Reason: Nausea And Vomiting Sennosides (Sennosides 8.6 Mg Tablet) 17.2 mg PO BEDTIME [facility] Last Admin: 02/25/23 20:51 Dose: 17.2 mg Documented By: Admin: 02/24/23 22:50 Dose: 17.2 mg Documented By: AWF(2) Sodium Chloride (Sodium Chloride 0.9% Flush) 10 ml IV BID [facility]ER[facility] Last Admin: 02/26/23 09:16 Dose: 10 ml Documented By: Admin: 02/25/23 20:51 Dose: 10 ml Documented By: MS Vital Signs Vital signs: Vital Signs - 8 hr 02/24/23 12:27 02/24/23 12:30 02/24/23 13:26 Pulse Rate 80 80 98 H Respiratory Rate 21 22 Blood Pressure 208/110 H Pulse Oximetry 97 99 Oxygen Delivery Method Room Air 02/24/23 12:45 02/24/23 12:45 02/24/23 13:00 Pulse Rate 79 Respiratory Rate 23 Blood Pressure 192/85 H 209/98 H Pulse Oximetry 100 Oxygen Delivery Method 02/24/23 13:00 02/24/23 13:15 02/24/23 13:17 Pulse Rate 79 85 80 Respiratory Rate 26 H 35 H 19 Blood Pressure Pulse Oximetry 98 98 99 Oxygen Delivery Method 02/24/23 13:17 02/24/23 13:26 02/24/23 13:26 Pulse Rate 83 Respiratory Rate 22 Blood Pressure 218/101 H 209/91 H Pulse Oximetry 91 Oxygen Delivery Method 02/24/23 13:30 02/24/23 13:31 02/24/23 13:31 Pulse Rate 80 79 Respiratory Rate 29 H 28 H Blood Pressure 194/91 H Pulse Oximetry 91 96 Oxygen Delivery Method 02/24/23 13:55 02/24/23 13:57 02/24/23 13:57 Pulse Rate 86 85 Respiratory Rate 21 18 Blood Pressure 200/95 H Pulse Oximetry 96 97 Oxygen Delivery Method 02/24/23 14:00 02/24/23 14:00 02/24/23 14:15 Pulse Rate 84 Respiratory Rate 18 Blood Pressure 193/91 H 192/82 H Pulse Oximetry 98 Oxygen Delivery Method 02/24/23 14:15 02/24/23 14:30 02/24/23 14:30 Pulse Rate 82 84 Respiratory Rate 26 H 32 H Blood Pressure 196/93 H Pulse Oximetry 98 95 Oxygen Delivery Method 02/24/23 14:42 02/24/23 14:42 02/24/23 14:45 Pulse Rate 84 Respiratory Rate 30 H Blood Pressure 180/84 H 179/84 H Pulse Oximetry 98 Oxygen Delivery Method 02/24/23 14:45 02/24/23 15:00 02/24/23 15:00 Pulse Rate 83 83 Respiratory Rate 20 18 Blood Pressure 180/78 H Pulse Oximetry 99 99 Oxygen Delivery Method 02/24/23 15:15 02/24/23 15:30 02/24/23 15:45 Pulse Rate 82 94 H 81 Respiratory Rate 19 21 27 H Blood Pressure Pulse Oximetry 98 Oxygen Delivery Method 02/24/23 16:00 02/24/23 16:03 02/24/23 16:03 Pulse Rate 82 82 Respiratory Rate 34 H 21 Blood Pressure 213/86 H Pulse Oximetry 92 Oxygen Delivery Method 02/24/23 16:15 02/24/23 16:15 02/24/23 16:30 Pulse Rate 80 Respiratory Rate 21 Blood Pressure 181/83 H 186/69 H Pulse Oximetry 98 Oxygen Delivery Method 02/24/23 16:30 02/24/23 16:45 02/24/23 16:46 Pulse Rate 81 81 Respiratory Rate 19 30 H Blood Pressure 198/95 H Pulse Oximetry 97 97 Oxygen Delivery Method 02/24/23 16:46 02/24/23 17:00 02/24/23 17:01 Pulse Rate 81 80 Respiratory Rate 27 H 19 Blood Pressure 223/88 H Pulse Oximetry 98 91 Oxygen Delivery Method 02/24/23 17:01 02/24/23 17:15 02/24/23 17:16 Pulse Rate 81 86 Respiratory Rate 24 32 H Blood Pressure 184/79 H Pulse Oximetry 97 Oxygen Delivery Method 02/24/23 17:16 02/24/23 17:25 02/24/23 17:23 Pulse Rate 89 82 87 Respiratory Rate 30 H 22 Blood Pressure 163/84 H Pulse Oximetry 89 L 97 Oxygen Delivery Method 02/24/23 17:23 02/24/23 17:30 02/24/23 17:30 Pulse Rate 77 Respiratory Rate 24 Blood Pressure 163/84 H 184/81 H Pulse Oximetry 97 Oxygen Delivery Method 02/24/23 17:45 02/24/23 17:45 02/24/23 19:00 Pulse Rate 72 72 Respiratory Rate 26 H Blood Pressure 189/79 H 199/112 H Pulse Oximetry 98 Oxygen Delivery Method 02/24/23 19:37 Pulse Rate 79 Respiratory Rate Blood Pressure 177/90 H Pulse Oximetry Oxygen Delivery Method Medical Decision Making Lab Data 02/25/23 04:35 02/26/23 04:44 Labs: Lab Results 02/24/23 02/24/23 02/24/23 Range/Units 12:26 12:26 12:26 WBC 6.9 (4.5-11.0) X10^3/uL RBC 4.39 (4.0-5.2) X10^6/uL Hgb 12.4 (12.0-16.0) g/dL Hct 36.7 (36-46) % MCV 83.5 (80-100) fL MCH 28.2 (26-34) PG MCHC 33.7 (30-36) % RDW 14.3 (11.6-14.8) % Plt Count 281 (150-400) X10^3/uL Neut % (Auto) 61.3 (50-75) % Lymph % (Auto) 28.8 (25-40) % [place] % (Auto) 8.1 (3-14) % Eos % (Auto) 1.0 L (2-4) % Baso % (Auto) 0.8 (0-2) % Neut # (Auto) 4200 (4807-0159) /uL Lymph # (Auto) 2000 (3134-0273) /uL [place] # (Auto) 600 (0-900) /uL Eos # (Auto) 100 (0-450) /uL Baso # (Auto) 100 (0-100) /uL PT 11.7 (10.1-12.7) SECONDS INR 1.0 (0.9-1.3) APTT 29 (26-36) SECONDS Sodium 135 L (137-145) mmol/L Potassium 3.4 (3.4-5.1) mmol/L Chloride 98 (98-107) mmol/L Carbon Dioxide 26 (22-32) mmol/L BUN 31 H (7-17) mg/dL Creatinine 1.22 H (0.52-1.04) mg/dL Estimated GFR 46 L (>60) mL/min BUN/Creatinine Ratio 25.4 H (6-22) Glucose 84 (80-110) mg/dL Hgb A1c (Ref Lab) (4.8-5.6) % Estim Average Glucose (.) mg/dL Calcium 9.4 (8.4-10.2) mg/dL Magnesium 2.0 (1.6-2.3) mg/dL Total Bilirubin 0.7 (0.2-1.3) mg/dL AST 43 H (14-36) IU/L ALT 21 (<35) IU/L Alkaline Phosphatase 109 (38-126) U/L Total Creatine Kinase 321 H (30-135) U/L CK-MB (CK-2) 4.94 H (<2.37) ng/mL CK-MB (CK-2) Rel Index 1.5 (1.5-5.0) % Troponin I < 0.012 (0.01-0.034) ng/mL NT-Pro-B Natriuret Pep (<450) pg/mL Total Protein 8.6 H (6.3-8.2) g/dL Albumin 4.5 (3.5-5.0) g/dL Globulin 4.1 (1.7-4.1) g/dL Albumin/Globulin Ratio 1.1 (1.0-2.8) Triglycerides (35-150) mg/dL Cholesterol (140-199) mg/dL LDL Cholesterol, Calc (<100) mg/dL HDL Cholesterol (40-60) mg/dL Lipase 73 (23-300) U/L TSH (0.47-4.68) uIU/mL Urine RBC (0-5/HPF) Urine WBC (0-5/HPF) Ur Squamous Epith Cells (0-5/HPF) Amorphous Sediment Urine Bacteria (None) Ur Culture Indicated? SARS-CoV-2 (PCR) (Negative) 02/24/23 02/24/23 02/24/23 Range/Units 12:26 12:26 12:26 WBC (4.5-11.0) X10^3/uL RBC (4.0-5.2) X10^6/uL Hgb (12.0-16.0) g/dL Hct (36-46) % MCV (80-100) fL MCH (26-34) PG MCHC (30-36) % RDW (11.6-14.8) % Plt Count (150-400) X10^3/uL Neut % (Auto) (50-75) % Lymph % (Auto) (25-40) % [place] % (Auto) (3-14) % Eos % (Auto) (2-4) % Baso % (Auto) (0-2) % Neut # (Auto) (1414-0227) /uL Lymph # (Auto) (9240-5031) /uL [place] # (Auto) (0-900) /uL Eos # (Auto) (0-450) /uL Baso # (Auto) (0-100) /uL PT (10.1-12.7) SECONDS INR (0.9-1.3) APTT (26-36) SECONDS Sodium (137-145) mmol/L Potassium (3.4-5.1) mmol/L Chloride (98-107) mmol/L Carbon Dioxide (22-32) mmol/L BUN (7-17) mg/dL Creatinine (0.52-1.04) mg/dL Estimated GFR (>60) mL/min BUN/Creatinine Ratio (6-22) Glucose (80-110) mg/dL Hgb A1c (Ref Lab) (4.8-5.6) % Estim Average Glucose (.) mg/dL Calcium (8.4-10.2) mg/dL Magnesium (1.6-2.3) mg/dL Total Bilirubin (0.2-1.3) mg/dL AST (14-36) IU/L ALT (<35) IU/L Alkaline Phosphatase (38-126) U/L Total Creatine Kinase (30-135) U/L CK-MB (CK-2) (<2.37) ng/mL CK-MB (CK-2) Rel Index (1.5-5.0) % Troponin I (0.01-0.034) ng/mL NT-Pro-B Natriuret Pep 239 (<450) pg/mL Total Protein (6.3-8.2) g/dL Albumin (3.5-5.0) g/dL Globulin (1.7-4.1) g/dL Albumin/Globulin Ratio (1.0-2.8) Triglycerides 89 (35-150) mg/dL Cholesterol 401 H (140-199) mg/dL LDL Cholesterol, Calc 312 H (<100) mg/dL HDL Cholesterol 71 H (40-60) mg/dL Lipase (23-300) U/L TSH 2.50 (0.47-4.68) uIU/mL Urine RBC (0-5/HPF) Urine WBC (0-5/HPF) Ur Squamous Epith Cells (0-5/HPF) Amorphous Sediment Urine Bacteria (None) Ur Culture Indicated? SARS-CoV-2 (PCR) (Negative) 02/24/23 02/24/23 02/24/23 Range/Units 12:26 13:27 17:30 WBC (4.5-11.0) X10^3/uL RBC (4.0-5.2) X10^6/uL Hgb (12.0-16.0) g/dL Hct (36-46) % MCV (80-100) fL MCH (26-34) PG MCHC (30-36) % RDW (11.6-14.8) % Plt Count (150-400) X10^3/uL Neut % (Auto) (50-75) % Lymph % (Auto) (25-40) % [place] % (Auto) (3-14) % Eos % (Auto) (2-4) % Baso % (Auto) (0-2) % Neut # (Auto) (5792-8497) /uL Lymph # (Auto) (9281-3342) /uL [place] # (Auto) (0-900) /uL Eos # (Auto) (0-450) /uL Baso # (Auto) (0-100) /uL PT (10.1-12.7) SECONDS INR (0.9-1.3) APTT (26-36) SECONDS Sodium (137-145) mmol/L Potassium (3.4-5.1) mmol/L Chloride (98-107) mmol/L Carbon Dioxide (22-32) mmol/L BUN (7-17) mg/dL Creatinine (0.52-1.04) mg/dL Estimated GFR (>60) mL/min BUN/Creatinine Ratio (6-22) Glucose (80-110) mg/dL Hgb A1c (Ref Lab) 5.6 (4.8-5.6) % Estim Average Glucose 114 (.) mg/dL Calcium (8.4-10.2) mg/dL Magnesium (1.6-2.3) mg/dL Total Bilirubin (0.2-1.3) mg/dL AST (14-36) IU/L ALT (<35) IU/L Alkaline Phosphatase (38-126) U/L Total Creatine Kinase (30-135) U/L CK-MB (CK-2) (<2.37) ng/mL CK-MB (CK-2) Rel Index (1.5-5.0) % Troponin I (0.01-0.034) ng/mL NT-Pro-B Natriuret Pep (<450) pg/mL Total Protein (6.3-8.2) g/dL Albumin (3.5-5.0) g/dL Globulin (1.7-4.1) g/dL Albumin/Globulin Ratio (1.0-2.8) Triglycerides (35-150) mg/dL Cholesterol (140-199) mg/dL LDL Cholesterol, Calc (<100) mg/dL HDL Cholesterol (40-60) mg/dL Lipase (23-300) U/L TSH (0.47-4.68) uIU/mL Urine RBC 0-1/hpf (0-5/HPF) Urine WBC 1-5/hpf (0-5/HPF) Ur Squamous Epith Cells 1-5 /hpf (0-5/HPF) Amorphous Sediment 1+ Urine Bacteria Moderate (10-30) H (None) Ur Culture Indicated? Specimen cultured SARS-CoV-2 (PCR) Negative (Negative) Urine Dip Bedside Urine Glucose Negative Bedside Urine Bilirubin - Negative Bedside Urine Ketone - Negative Urine Specific [place] 1.025 Bedside Urine Occult Blood +/- Bedside Urine pH 6.0 Bedside Urine Protein +/- 15 Bedside Urine Urobilinogen - Negative Bedside Urine Nitrite - Negative Bedside Urine Leukocytes ++ 125 Esterase Point of care testing: Urine Dip Bedside Urine Glucose Negative Bedside Urine Bilirubin - Negative Bedside Urine Ketone - Negative Urine Specific [place] 1.025 Bedside Urine Occult Blood +/- Bedside Urine pH 6.0 Bedside Urine Protein +/- 15 Bedside Urine Urobilinogen - Negative Bedside Urine Nitrite - Negative Bedside Urine Leukocytes ++ [address] scan - head: Radiologist's Impression: PROCEDURE:? CT HEAD/BRAIN WO CON ? INDICATIONS:? headache, htn ? TECHNIQUE:? Noncontrast 4.5 mm thick angled axial sections acquired from the foramen magnum to the vertex, with coronal and sagittal reformats.? For radiation dose reduction, the following was used:? automated exposure control, adjustment of mA and/or kV according to patient size.? ? COMPARISON:? None. ? FINDINGS:? Image quality:? Metallic streak artifact is present secondary to presumed aneurysm coil. ? CSF spaces:? Basal cisterns are patent.? No extra-axial fluid collections.? The ventricles are symmetric in size and shape.? ? Brain:? No intracranial bleeds or masses.? Significant metallic streak artifact from presumed aneurysm coil is present anterior and slightly superior to the gloria.? There is cerebral volume loss for age, with resultant ventricular and sulcal prominence.? There are periventricular and deep white matter chronic small vessel ischemic changes.? There is intracranial internal carotid artery atherosclerosis.? ? Skull and face:? Calvarium and visualized facial bones appear intact, without suspicious lesions.? ? Sinuses:? Visualized sinuses and mastoids are clear.? ? IMPRESSION:? ? 1. No acute intracranial process. ? 2. Moderate atrophy and chronic microvascular ischemic changes. ? ? ? Dictated by: Annie Lee M.D. on 02/24/2023 at 12:46 ? ? Approved by: Annie Lee M.D. on 02/24/2023 at 12:47 ? Chest x-ray: Radiologist's Impression: PROCEDURE:? XR CHEST 1V ? INDICATIONS:? chest pain ? TECHNIQUE:? One view of the chest was acquired.? ? COMPARISON:? [facility], , XR CHEST 2V, 06/20/2019, 10:31. ? FINDINGS:? ? Surgical changes and devices:? None.? ? Lungs and pleura:? Lungs are clear.? No pleural effusions or pneumothorax.? ? Mediastinum:? Mediastinal contours appear normal.? Heart size is normal.? ? Bones and chest wall:? No suspicious bony lesions.? Overlying soft tissues appear unremarkable.? ? IMPRESSION:? No acute pulmonary process. ? ? Dictated by: Annie Lee M.D. on 02/24/2023 at 12:53 ? ? Approved by: Annie Lee M.D. on 02/24/2023 at 13:02 ? CTA - brain/neck: Radiologist's Impression: PROCEDURE:? CT ANGIO HEAD AND NECK ? INDICATIONS:? Headache/ataxia ? TECHNIQUE:? Pre-contrast 4.5 mm thick sections acquired from the foramen magnum to the vertex.? After the administration of intravenous contrast, 1 mm thick sections acquired from the aortic arch through the [place] of [place].? Post-contrast 4.5 mm thick sections then re-acquired from the foramen magnum to the vertex.? 3-dimensional swkmdot-xggxhebtv-xnhanqttie (MIP) and/or volume rendering reformats were acquired of the central intracranial vasculature and neck separately. For radiation dose reduction, the following was used:? automated exposure control, adjustment of mA and/or kV according to patient size.? ? COMPARISON:? [facility], US, US CAROTID DOPPLER BI, 06/24/2019, 14:39.? [facility], CT, CT HEAD/BRAIN WO CON, 02/24/2023, 12:14. ? FINDINGS:? Image quality:? Artifact is present presumably from central aneurysm clip. ? BRAIN:? CT brain old ? HEAD CT ANGIOGRAPHY:? Anterior circulation:? There is occlusion of the? internal carotid artery on the left from the origin.? This was also present on carotid ultrasound in 2019. The flow within the paired anterior cerebral arteries is normal and symmetric.? The flow within the middle cerebral arteries is normal and symmetric.? The anterior communicating artery is seen.? No aneurysms are seen.? ? Posterior circulation:? Vertebral arteries are codominant.? There is calcification bilaterally within the carotid arteries predominantly in the V4 segment with multiple areas of narrowing ranging from 50-60%.? Basilar artery is unremarkable.? Flow within the posterior cerebral arteries is normal and symmetric.? No aneurysms are seen.? ? NECK CT ANGIOGRAPHY:? The origins of the left and right common and external carotid arteries demonstrate no areas of hemodynamically significant stenosis, vascular occlusion or aneurysmal dilation. ?Left internal carotid artery is occluded at the origin.? There is calcification at the origin of the right internal carotid artery with approximately 65-70% occlusion.? Origins of the left and right vertebral arteries demonstrate no areas of hemodynamically significant stenosis, vascular occlusion or aneurysmal dilation. Aortic arch demonstrates conventional anatomy.? Stent is noted in the thyrocervical trunk and appears patent. ? ? IMPRESSION:? 1. No acute intracranial process. ? 2. Moderate atrophy and chronic microvascular ischemic changes. ? 3. 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 ? 4. 65-70% stenosis of the right internal carotid artery at the origin. ? Any quantitative measurements of stenosis were performed using NASCET criteria.? ? ? Dictated by: Annie Lee M.D. on 02/24/2023 at 14:58 ? ? Approved by: Annie Lee M.D. on 02/24/2023 at 15:05 ? [facility] Narrative Medical decision making narrative: After history and exam CBC CMP EKG troponin CT head CT angiogram head and neck lisinopril normal saline ordered [facility] CC: Ataxia headache nausea high blood pressure Complicating co-morbidities: History of brain aneurysm coil Data collected from: Patient and ex- Medical records reviewed: Discharge summary from January 29, 2019 from this hospital Differential considered: Includes but not limited to stroke TIA brain bleed brain aneurysm Parkinson's multiple sclerosis Exam documented above, pertinent findings include: Resting hand tremor Lab Test results independently reviewed as above. Pertinent findings: WBC 6.9 hemoglobin 12 hematocrit 36 sodium 135 BUN 31 creatinine 1.2 GFR 46 troponin less than 0.012 Independently reviewed EKG as above normal sinus rhythm rate [address] elevation or depression Imaging studies independently reviewed: CT head no acute process, CT angiogram head and neck no acute process Consultations: 5:19 p.m.. Spoke with neurology , dr covarrubias, he found MRA of brain/with and without at [facility] after coiling of aneurysm. Ordered by patient's surgeon. Dr. Dean, at this time patient can have MRI without contrast here. 7:54 p.m.. Spoke with hospitalist, Ana Jacobs. She will admit patient. She will order MRI and echocardiogram for tomorrow Treatments: Lisinopril, normal saline, labetalol, metoprolol Re-evaluations: 5:22 p.m.. Reviewed my discussion with patient and ex- regarding MRI with [facility] neurology. Patient is still hypertensive. Will need labetalol. Blood pressure 177/90 at 7:37 p.m.. Reviewed results with patient so far and she agrees for admission. Discussion: Appropriate for admission for hypertensive urgency MRI of the brain. I have cleared this with [facility] neurology for MRI. MRI department states not able to get to her till tomorrow Diagnosis: Hypertensive urgency Discharge Plan Departure Patient Disposition: Admitted as Observation Clinical Impression: Hypertensive urgency Admit Date/Time: 02/24/23 20:02 Admit Provider: Ana Jacobs
[2023-02-24] MEDS: SODIUM CHLORIDE 0.9% 500 ML 1000 ML IV (14:20)
--- NOTE | 2023-02-24 17:16 | DI.MRI.S_ITS ---
PROCEDURE: MR HEAD/BRAIN WO CON INDICATIONS: Right-sided weakness TECHNIQUE: Non-contrast axial T1 spin echo, axial T2 fast spin echo, sagittal and axial FLAIR, coronal T2 fast spin echo, axial gradient echo, axial diffusion and ADC through the brain. COMPARISON: [facility], CT, CT ANGIO HEAD AND NECK, 02/24/2023, 13:42. [facility], CT, CT HEAD/BRAIN WO CON, 02/24/2023, 12:14. FINDINGS: Image quality: Excellent. CSF spaces: Ventricles appear symmetric in size and shape. Basal cisterns are patent. No extra-axial fluid collections. Brain: Metallic susceptibility artifact in the suprasellar cistern, likely secondary to prior aneurysm clipping. No intracranial bleeds or mass effects. There is cerebral volume loss for age. There are periventricular and deep white matter chronic small vessel ischemic changes. Brainstem appears normal. Diffusion-weighted images show no acute ischemic insults. No chronic ischemic insults. Normal intravascular flow voids are present. Skull and face: Calvarial bone marrow is normal in signal. Orbits are normal. Sinuses: Sinuses and mastoids are clear. IMPRESSION: 1. No acute intracranial abnormalities. 2. Cerebral volume loss and chronic microvascular ischemic changes. Dictated by: Nalini Hoskins M.D. on 02/25/2023 at 9:01 Approved by: Nalini Hoskins M.D. on 02/25/2023 at 9:03
[2023-02-24] MEDS: LABETALOL 20 MG/4 ML SYRINGE 5 MG IV (17:25)
[2023-02-24 17:49] LABS: COVID19 -Nasal RAPID Negative (Negative)
[2023-02-24] MEDS: METOPROLOL ER 25 MG TABLET PO (19:37)
--- NOTE | 2023-02-24 20:05 | DI.ECHO.S_ITS ---
[facility]---------+ [facility] +---------+ : : [address] : : : : [id number] : : : : Phone: [phone]+ Echocardiogram Report + + :Name: TRISHA PEREZ Study Date: 02/25/2023 Height: 66 in : :[facility] ReadingLocation: Weight: 128 lb : : Gender: Female BSA: 1.7 m2 : :: 1945 Age: 77 yrs BP: 150/65 mmHg: :Reason For Study: HYPERTENSION, TIA : :Ordering Physician: YESSICA, : :JANNETH Performed By: Pili Crooks : :Referring: JANNETH JUAN : + + Interpretation Summary The left ventricle is normal in size and wall thickness. The ejection fraction is estimated to be 65-70%. Previous LV ejection fraction 55 to 60%. The right ventricle is normal in size and function. There is mild tricuspid regurgitation. The right ventricular systolic pressure is estimated to be at least 29 mmHg based on an estimated right atrial pressure of 3 mm Hg. There is mild luminal irregularity and echogenicity in the abdominal aorta, suggestive of aortic atherosclerotic disease. Mild atherosclerotic plaque(s) in the aortic arch. Procedure: A two-dimensional transthoracic echocardiogram with color flow and Doppler was performed. The study quality was technically adequate. Comparison is made with the echocardiogram of 06/18/2021. The patient was in sinus rhythm with heart rates between 66-80 bpm during the exam. Left Ventricle: The left ventricle is normal in size and wall thickness. There is no thrombus. The ejection fraction is estimated to be 65-70%. There are no focal wall motion abnormalities. MV E/A: 1.2 Med Peak E' Rudi: 6.3 cm/sec E/E' med: 14.9. Right Ventricle: The right ventricle is normal in size and function. Atria: The left atrial size is normal. There has been no significant change since the previous study. Right atrial size is normal. There is no Doppler evidence for an interatrial shunt. Mitral Valve: There is mild mitral annular calcification. There is mild mitral regurgitation. Aortic Valve: The aortic valve is mildly calcified. The aortic valve is trileaflet. There is no aortic valve stenosis. No aortic regurgitation is present. Tricuspid Valve: The tricuspid valve is normal. There is mild tricuspid regurgitation. The right ventricular systolic pressure is estimated to be at least 29 mmHg based on an estimated right atrial pressure of 3 mm Hg. Pulmonic Valve: The pulmonic valve is not well visualized. Great Vessels: The ascending aorta could not be visualized. There is mild luminal irregularity and echogenicity in the abdominal aorta, suggestive of aortic atherosclerotic disease. Mild atherosclerotic plaque(s) in the aortic arch. The IVC is of normal diameter and collapses greater than 50% with a sniff. This suggests a low right atrial pressure of 3 mm Hg. Pericardium/ Pleura There is no pericardial effusion. There is an anterior echo-free space consistent with a fat pad. There is no pleural effusion. MMode/2D Measurements & Calculations LVIDd: 4.2 cm LVOT diam: 2.0 cm LVIDs: 2.6 cm Ao Arch Diam (Prox Trans): 2.2 cm FS: 38.6 % IVSd: 0.62 cm LVPWd: 0.71 cm LV george. diameter/BSA (cm/m^2): 2.6 LV sys. diameter/BSA (cm/m^2): 1.6 LA A2 area: 14.3 cm2 RA long axis: 3.7 cm LA A4 area: 14.3 cm2 RA area: 7.2 cm2 LA length (vol): 4.6 cm RA vol: 12.0 ml LA vol: 37.2 ml RA : 7.2 ml/m2 LA vol index: 22.5 ml/m2 IVC diam: 0.95 cm RVD1 (basal): 2.7 cm RVD2 (mid): 2.2 cm TAPSE: 1.8 cm Doppler Measurements & Calculations Ao V2 max: 146.7 cm/sec LVOT Max Rudi: 103.2 cm/sec Ao V2 mean: 108.0 cm/sec LV V1 max P.3 mmHg Ao max P.6 mmHg LV V1 VTI: 25.8 cm Ao mean P.0 mmHg MARGOT(I,D): 2.6 cm2 Ao V2 VTI: 30.4 cm MARGOT(V,D): 2.2 cm2 sev ratio: 0.85 MARGOT indexed to BSA (cm^2/m^2): 1.6 MV E max rudi: 93.8 cm/sec TR max rudi: 253.8 cm/sec MV A max rudi: 77.3 cm/sec TR max P.8 mmHg MV E/A: 1.2 PA V2 max: 85.0 cm/sec Med Peak E' Rudi: 6.3 cm/sec PA V2 mean: 61.0 cm/sec E/E' med: 14.9 PA mean P.7 mmHg Lat Peak E' Rudi: 7.4 cm/sec E/E' lat: 12.7 E/e' average: 13.8 MV dec time: 0.20 sec SV(LVOT): 80.4 ml Reading Physician:03:18 PM
--- NOTE | 2023-02-24 20:16 | PM.HP.1 ---
History of Present Illness History of Present Illness Date Patient Seen: 02/24/23 Time Patient Seen: 20:16 Chief complaint: ballance issues/ high BP/ vomiting Narrative: Mindi Marcos is a 77 yr old female with a history coronary artery disease with prior stent placement, hyperlipidemia, hypertension, asthma, status post coiling of cerebral aneurysm, hypothyroidism, migraines and depression?presented to ED with Complains of headache and high blood pressure, daily nausea and vomiting often times after eating, increased fatigue, tremors, right-sided weakness, balance issues, 3-4 falls, falling backwards and hitting her head at least 3 times without loss of consciousness all over the past 2 weeks. Patient presented with hypertensive urgency BP is 213/86, 223/88. Patient has history of brain aneurysm coiling over a decade ago at [facility].? Has been doing well. Patient feels like she is drifting towards the right when she walks.? She states she was weaned down on her blood pressure medication at least 3 months ago because her blood pressure was very labile. On admit patient denies chest pain, shortness in breath, headache, changes in vision, difficulty swallowing, speech impairment, weakness, numbness, tingling, LOC, fever, body aches, chills,recent exposure to illness, abdominal pain,urinary incontinence/retention, dysuria, frequency, urgency, hematuria, bowel incontinence, melena, rashes, recent changes to medication, illness,or trauma. Lying in bed patient reports that her headache, nausea, vomiting, tremors, and right-sided weakness appears to have resolved. Admit temp 97.4?, BP 130/72, HR 79, RR 21, O2 saturation 98% on room air. CBC is unremarkable, renal function is at or improved from baseline sodium 135, BUN 31, creatinine 1.22, GFR 46 (10/10/2022 BUN 21 creatinine 1.28 GFR 44). Creatinine kinase 321, CK-2:4.94, urinalysis is positive for bacteria moderate, culture pending, COVID negative. I personally reviewed all imaging and EKG. H/N CTA negative for any acute process, chronic occlusion of left ICA, 65-70 % stenosis of right ICA, head CT negative, chest x-ray negative. Patient be admitted for observation for right-sided weakness/tremor, frequent falls and hypertensive urgency. [facility] Medical History Cerebral aneurysm without rupture Coronary artery disease Depression Hyperlipidemia Hypertension Hypothyroid Migraine headache Surgical History History of coronary artery stent placement Hx of appendectomy Status post coil embolization of cerebral aneurysm Family History Father No problems noted. Mother Respiratory disease Cerebral aneurysm Brother In good health Social History household members: none Smoking Status: Former smoker alcohol intake: never substance use type: does not use Meds Home Medications and Allergies Home Medications Medication Instructions Recorded Confirmed Type aspirin 81 mg tablet,delayed 81 mg PO QPM 01/28/19 02/24/23 History release albuterol sulfate 90 mcg/actuation 1 inh inhalation Q4HR PRN 02/24/23 02/24/23 History aerosol inhaler Shortness Of Breath bupropion HCl 300 mg 24 hr tablet, 300 mg PO DAILY 02/24/23 02/24/23 History extended release clopidogrel 75 mg tablet 75 mg PO DAILY 02/24/23 02/24/23 History fluticasone propionate 230 2 inh inhalation BID 02/24/23 02/24/23 History mcg-salmeterol 21 mcg/actuation HFA inhaler (Advair HFA) levothyroxine 75 mcg tablet 75 mcg PO QAM 02/24/23 02/24/23 History ondansetron HCl 4 mg tablet 4 mg PO Q12HR PRN nausea/vomiting 02/24/23 02/24/23 History Allergies Allergy/AdvReac Type Severity Reaction Status Date / Time No Known Drug Allergies Allergy Verified 01/29/19 08:18 Review of Systems Review of Systems Narrative: On admit patient denies chest pain, shortness in breath, headache, changes in vision, difficulty swallowing, speech impairment, weakness, numbness, tingling, difficulty with ambulation, recent falls, head injury, LOC, fever, body aches, chills, cough, recent exposure to illness, abdominal pain, nausea, vomiting, urinary incontinence/retention, dysuria, frequency, urgency, hematuria, bowel changes, constipation, incontinence, melena, rashes, recent changes to medication, illness, injury, or trauma. Exam Vital Signs (past 8 hours): - 02/24/23 12:27 02/24/23 12:30 02/24/23 13:26 Pulse Rate 80 80 98 H Respiratory Rate 21 22 Blood Pressure 208/110 H Pulse Oximetry 97 99 Oxygen Delivery Method Room Air 02/24/23 12:45 02/24/23 12:45 02/24/23 13:00 Pulse Rate 79 Respiratory Rate 23 Blood Pressure 192/85 H 209/98 H Pulse Oximetry 100 Oxygen Delivery Method 02/24/23 13:00 02/24/23 13:15 02/24/23 13:17 Pulse Rate 79 85 80 Respiratory Rate 26 H 35 H 19 Blood Pressure Pulse Oximetry 98 98 99 Oxygen Delivery Method 02/24/23 13:17 02/24/23 13:26 02/24/23 13:26 Pulse Rate 83 Respiratory Rate 22 Blood Pressure 218/101 H 209/91 H Pulse Oximetry 91 Oxygen Delivery Method 02/24/23 13:30 02/24/23 13:31 02/24/23 13:31 Pulse Rate 80 79 Respiratory Rate 29 H 28 H Blood Pressure 194/91 H Pulse Oximetry 91 96 Oxygen Delivery Method 02/24/23 13:55 02/24/23 13:57 02/24/23 13:57 Pulse Rate 86 85 Respiratory Rate 21 18 Blood Pressure 200/95 H Pulse Oximetry 96 97 Oxygen Delivery Method 02/24/23 14:00 02/24/23 14:00 02/24/23 14:15 Pulse Rate 84 Respiratory Rate 18 Blood Pressure 193/91 H 192/82 H Pulse Oximetry 98 Oxygen Delivery Method 02/24/23 14:15 02/24/23 14:30 02/24/23 14:30 Pulse Rate 82 84 Respiratory Rate 26 H 32 H Blood Pressure 196/93 H Pulse Oximetry 98 95 Oxygen Delivery Method 02/24/23 14:42 02/24/23 14:42 02/24/23 14:45 Pulse Rate 84 Respiratory Rate 30 H Blood Pressure 180/84 H 179/84 H Pulse Oximetry 98 Oxygen Delivery Method 02/24/23 14:45 02/24/23 15:00 02/24/23 15:00 Pulse Rate 83 83 Respiratory Rate 20 18 Blood Pressure 180/78 H Pulse Oximetry 99 99 Oxygen Delivery Method 02/24/23 15:15 02/24/23 15:30 02/24/23 15:45 Pulse Rate 82 94 H 81 Respiratory Rate 19 21 27 H Blood Pressure Pulse Oximetry 98 Oxygen Delivery Method 02/24/23 16:00 02/24/23 16:03 02/24/23 16:03 Pulse Rate 82 82 Respiratory Rate 34 H 21 Blood Pressure 213/86 H Pulse Oximetry 92 Oxygen Delivery Method 02/24/23 16:15 02/24/23 16:15 02/24/23 16:30 Pulse Rate 80 Respiratory Rate 21 Blood Pressure 181/83 H 186/69 H Pulse Oximetry 98 Oxygen Delivery Method 02/24/23 16:30 02/24/23 16:45 02/24/23 16:46 Pulse Rate 81 81 Respiratory Rate 19 30 H Blood Pressure 198/95 H Pulse Oximetry 97 97 Oxygen Delivery Method 02/24/23 16:46 02/24/23 17:00 02/24/23 17:01 Pulse Rate 81 80 Respiratory Rate 27 H 19 Blood Pressure 223/88 H Pulse Oximetry 98 91 Oxygen Delivery Method 02/24/23 17:01 02/24/23 17:15 02/24/23 17:16 Pulse Rate 81 86 Respiratory Rate 24 32 H Blood Pressure 184/79 H Pulse Oximetry 97 Oxygen Delivery Method 02/24/23 17:16 02/24/23 17:25 02/24/23 17:23 Pulse Rate 89 82 87 Respiratory Rate 30 H 22 Blood Pressure 163/84 H Pulse Oximetry 89 L 97 Oxygen Delivery Method 02/24/23 17:23 02/24/23 17:30 02/24/23 17:30 Pulse Rate 77 Respiratory Rate 24 Blood Pressure 163/84 H 184/81 H Pulse Oximetry 97 Oxygen Delivery Method 02/24/23 17:45 02/24/23 17:45 02/24/23 19:00 Pulse Rate 72 72 Respiratory Rate 26 H Blood Pressure 189/79 H 199/112 H Pulse Oximetry 98 Oxygen Delivery Method 02/24/23 19:37 Pulse Rate 79 Respiratory Rate Blood Pressure 177/90 H Pulse Oximetry Oxygen Delivery Method Oxygen Delivery Method Room Air Narrative Exam Narrative: General: Patient is a well-developed, well-nourished in no distress at this time. HEENT: Normocephalic, atraumatic, extraocular muscles intact, oral pharynx is clear and mucous membranes are moist. Neck is supple and symmetric, trachea is midline, no adenopathy, no thyroid enlargement, nontender, no masses palpated. Negative for JVD Chest: Normal AP diameter and contour without kyphoscoliosis, no nasal flaring, retractions, or tachypneic labored Lungs: Auscultation of all lung bailey are clear without adventitious sounds, wheezes, rhonchi, or rales. Cardio: S1 & S2 with regular rate and rhythm without murmur, rubs, or gallops, no carotid bruit, no cardiac pulsations present. Abdomen: Soft nontender, negative for organomegaly, or masses. Bowel sounds are present in all 4 quadrants without guarding or rebound, no CVA tenderness. Musculoskeletal: Muscle strength and tone are equal within normal limits, no deformity, crepitus, effusions, cyanosis, clubbing or edema present. Full range of motion intact radial and pedal pulses are normal. Skin: Warm dry and intact without rashes, ulcerations or petechiae. Noted bruise present to left forearm. Neuro: Alert and orientated x3, moves all extremities, sensation to touch intact, no gross deficits noted of cranial nerves. Psych: Patient has a well-kept appearance, appropriate affect, mental status attitude thought context and judgment are appropriate for age. Objective Labs 02/24/23 12:26 02/24/23 12:26 Labs: Laboratory Results - last 24 hr 02/24/23 02/24/23 02/24/23 12:26 12:26 12:26 WBC 6.9 RBC 4.39 Hgb 12.4 Hct 36.7 MCV 83.5 MCH 28.2 MCHC 33.7 RDW 14.3 Plt Count 281 Neut % (Auto) 61.3 Lymph % (Auto) 28.8 [place] % (Auto) 8.1 Eos % (Auto) 1.0 L Baso % (Auto) 0.8 Neut # (Auto) 4200 Lymph # (Auto) 2000 [place] # (Auto) 600 Eos # (Auto) 100 Baso # (Auto) 100 PT 11.7 INR 1.0 APTT 29 Sodium 135 L Potassium 3.4 Chloride 98 Carbon Dioxide 26 BUN 31 H Creatinine 1.22 H Estimated GFR 46 L BUN/Creatinine Ratio 25.4 H Glucose 84 Calcium 9.4 Magnesium 2.0 Total Bilirubin 0.7 AST 43 H ALT 21 Alkaline Phosphatase 109 Total Creatine Kinase 321 H CK-MB (CK-2) 4.94 H CK-MB (CK-2) Rel Index 1.5 Troponin I < 0.012 Total Protein 8.6 H Albumin 4.5 Globulin 4.1 Albumin/Globulin Ratio 1.1 Lipase 73 Urine RBC Urine WBC Ur Squamous Epith Cells Amorphous Sediment Urine Bacteria Ur Culture Indicated? SARS-CoV-2 (PCR) 02/24/23 02/24/23 13:27 17:30 WBC RBC Hgb Hct MCV MCH MCHC RDW Plt Count Neut % (Auto) Lymph % (Auto) [place] % (Auto) Eos % (Auto) Baso % (Auto) Neut # (Auto) Lymph # (Auto) [place] # (Auto) Eos # (Auto) Baso # (Auto) PT INR APTT Sodium Potassium Chloride Carbon Dioxide BUN Creatinine Estimated GFR BUN/Creatinine Ratio Glucose Calcium Magnesium Total Bilirubin AST ALT Alkaline Phosphatase Total Creatine Kinase CK-MB (CK-2) CK-MB (CK-2) Rel Index Troponin I Total Protein Albumin Globulin Albumin/Globulin Ratio Lipase Urine RBC 0-1/hpf Urine WBC 1-5/hpf Ur Squamous Epith Cells 1-5 /hpf Amorphous Sediment 1+ Urine Bacteria Moderate (10-30) H Ur Culture Indicated? Specimen cultured SARS-CoV-2 (PCR) Negative Assessment & Plan Assessment & Plan narrative: Mindi Marcos is a 77 yr old female with a history coronary artery disease with prior stent placement, hyperlipidemia, hypertension, asthma, status post coiling of cerebral aneurysm, hypothyroidism, migraines and depression?presented to ED with Complains of headache and high blood pressure, daily nausea and vomiting often times after eating, increased fatigue, tremors, right-sided weakness, balance issues, 3-4 falls, with head injury. Patient be admitted for observation for right-sided weakness/tremor, frequent falls and hypertensive urgency. 1. TIA, right-sided weakness/tremor/frequent falls balance-coordination issues, Acute, present on admission -symptoms have resolved on admit, NIH:0 -head CT negative -stroke MRI ordered for tomorrow -neuro checks and NIH as needed -ordered Lipitor, lipid panel, BNP, A1C -Creatinine kinase 321, -consult PT/OT 2.? Hypertension urgency, acute, with hypertensive, essential chronic, present on admission -ED:BP is 213/86, 223/88. -repeat admit 130/72 -She states she was weaned down on her blood pressure medication at least 3 months ago because her blood pressure was very labile. -initiate lisinopril 5 mg p.o. b.i.d. -ordered echo/stress test -CK-2:4.94, initial troponin negative, will trend x3 3. CAD w/stent placement x2, Carotid artery, left occlusion, right stenosis, chronic, present on admission -H/N CTA negative for any acute process, chronic occlusion of left ICA, 65-70 % stenosis of right ICA -ordered bilateral carotid Doppler -continue Plavix/ASA 4. Cystitis, acute, present on admission -urinalysis is positive for bacteria moderate, culture pending -NS at 60 cc/HR -Rocephin 2 g now, 1 g QD 5. CKD stage G3a, chronic, present on admission - sodium 135, BUN 31, creatinine 1.22, GFR 46 -(10/10/2022 BUN 21 creatinine 1.28 GFR 44). , 6.? Hypothyroidism, chronic, present on admission -will continue patient's levothyroxine -Ordered TSH 7.? Depression, chronic, present on admission -continue bupropion 8.? Cerebral aneurysm, chronic, present on admission -no associated rupture or bleed -status post coiling no residual neurologic sequelae. 9. Asthma, chronic, present on admission -continue asthma/albuterol Code status: DNR Surrogate decision maker: David Reich friend [email or web address] PCR: Negative DVT/VTE prophylaxis: Lovenox and SCDs Disposition: Patient admitted for observation, evaluation for TIA stroke, resolution of hypertension, and determine UTI, expected length of stay less than 2 midnights. I have utilized all available immediate resources to obtain, update, or review the patient's current medications. I confirmed that the patient's advanced care plan is present, Code status is documented and/or surrogate decision maker is listed in the patient's medical record. I have personally reviewed patient's chart notes from PCP, specialists, diagnostic imaging, and laboratory results.
[2023-02-24 20:33] LABS: HDL Cholesterol 71 mg/dL (40-60); Triglycerides 89 mg/dL (35-150)
[2023-02-24 20:40] LABS: Cholesterol 401 mg/dL (140-199); LDL Cholesterol Calculated 312 mg/dL (<100)
[2023-02-24 20:42] LABS: NT-proBNP (BNP-Adult 18+) 239 pg/mL (<450)
[2023-02-24 21:04] LABS: Troponin I < 0.012 ng/mL (0.01-0.034)
[2023-02-24] MEDS: SENNOSIDES 8.6 MG TABLET 17.2 MG PO (22:50)
[2023-02-24] MEDS: ATORVASTATIN 20 MG TABLET PO (22:50)
[2023-02-24] MEDS: SODIUM CHLORIDE 0.9% 1,000 ML 60 ML IV (22:50)
[2023-02-25] VITALS (8 sets, daily range): BP systolic 116–160; BP diastolic 60–72; PULSE 67–72; RESP 16–19; TEMP 36.2–37; O2SAT 96–100
[2023-02-25 02:44] LABS: Troponin I < 0.012 ng/mL (0.01-0.034)
[2023-02-25 04:56] LABS: Add Manual Diff / Slide Review NO; Basophils Absolute Auto 0 /uL (0-100); Basophils Percent Auto 0.6 % (0-2); Eosinophils Absolute Auto 200 /uL (0-450); Eosinophils Percent Auto 2.9 % (2-4); Hematocrit 34.7 % (36-46); Hemoglobin 11.6 g/dL (12.0-16.0); Lymphocytes Absolute Auto 2100 /uL (1100-4500); Lymphocytes Percent Auto 31.6 % (25-40); Mean Corpuscular HGB Conc 33.4 % (30-36); Mean Corpuscular Volume 83.8 fL (80-100); Monocytes Absolute Auto 800 /uL (0-900); Monocytes Percent Auto 12.1 % (3-14); Neutrophils Absolute Auto 3500 /uL (1500-7000); Neutrophils Percent Auto 52.8 % (50-75); Platelet Count 266 X10^3/uL (150-400); Red Blood Cell Count 4.14 X10^6/uL (4.0-5.2); Red Cell Distribution Width 14.3 % (11.6-14.8); White Blood Cell Count 6.7 X10^3/uL (4.5-11.0)
[2023-02-25] MEDS: cefTRIAXone 2,000 MG in SODIUM CHLORIDE 0.9% 100 ML 200 MG IV (05:01)
[2023-02-25 05:02] LABS: BUN Creatinine Ratio 25.9 (6-22); Blood Urea Nitrogen 30 mg/dL (7-17); Calcium 8.9 mg/dL (8.4-10.2); Carbon Dioxide 26 mmol/L (22-32); Chloride 101 mmol/L (98-107); Estimated Glomerular Filt Rate 49 mL/min (>60); Glucose 86 mg/dL (80-110); HEMOLYSIS < 15 (0-50); Potassium 3.5 mmol/L (3.4-5.1); Sodium 136 mmol/L (137-145)
--- NOTE | 2023-02-25 08:48 | PC.NURSE ---
Pt alert, anxious asking appropriate questions. Discussing plan for the day. Down at MRI presently.
[2023-02-25] MEDS: ENOXAPARIN 40 MG/0.4 ML SYRINGE SUBCUT (09:58)
[2023-02-25] MEDS: buPROPion XL 150 MG TAB 300 MG PO (09:59)
[2023-02-25] MEDS: CLOPIDOGREL 75 MG TABLET PO (09:59)
[2023-02-25] MEDS: lisinopriL 5 MG TABLET PO ×2 (09:59→20:49)
[2023-02-25] MEDS: LEVOTHYROXINE 75 MCG TABLET PO (10:00)
--- NOTE | 2023-02-25 10:34 | CM.DANOTE ---
DCP: Case received, EMR reviewed and met with patient. Introduced self and role. Was able to obtain information regarding patient's baseline activity status prior to hospitalization. DCP assessment completed with information currently available. Patient is a 77 year old female who admitted yesterday morning to the care of the hospitalist team. PCP: None, currently, her existing PCP retired. Payer: confirmed: Medicare/ Patient came to the hospital via private vehicle secondary to having right sided-weakness and balance issues. Patient had indicated, she feels that she is drifting to the right when she walks. Patient has history of stent placement, migraines, depression, status post coiling of cerebral aneurysm. Patient noted increased BP, 213/86. Patient previous brain aneurysm was over a decade ago at [facility]. Patient is here for a work up, for TIA, echo, MRI, and HTN Met with patient in her room. She is alert and oriented, laying in bed. Confirmed that she resides here in [place] alone, but her ex-, David Reich, is nearby to offer assistance if needed. She does not drive, uses a cane at baseline. She has no current provider, her last provider retired, is open to resources for new providers, can provide her a list. He wants a doctor, not a nurse practitioner. Patient was asking about caregivers, some assistance at home. Gave her the Senior Resource Book, with names of caregiving agencies. P: DCP to continue to follow. Patient will work with P.T. She should be able to go home when deemed medically stable. Massiel Mauricio RN/Maintenance Department Manager Discharge Planning/Care Management Discharge Assessment Start: 02/25/23 10:31 Freq: Status: Active Protocol: Document 02/25/23 10:31 (Rec: 02/25/23 10:34 [id number]) Discharge Planning Assessment Assigned Wire Drawing Die Maker Massiel Mauricio RN/Maintenance Department Manager Advance Directives? No History Provided By Patient,Medical Record Household Members none Type of transporation used prior to Relies on Others admit Independent with ADL's Yes Is patient alert and oriented? Yes Needs Assistance With Home Chores / Shopping DME Already Rented / Owned Cane Comment Does not have a local provider , her provider is at [facility] Discharge Plan Home Transportation Arrangement Family Referrals Initiated None needed Additional Comment Patient is not a candidate for home health, does not have a local provider Whiteboard Updated in Patient Room with Yes name and ext. # of Wire Drawing Die Maker Review Status In Process Next Review Type Continued Stay Review
--- NOTE | 2023-02-25 11:45 | PT.IIE ---
Surgical History (Last Reviewed 02/25/23 @ 03:27 by Ana Jacobs [facility]) History of coronary artery stent placement Hx of appendectomy Status post coil embolization of cerebral aneurysm Medical History (Last Reviewed 02/25/23 @ 03:27 by Ana Jacobs [facility]) Cerebral aneurysm without rupture Coronary artery disease Depression Hyperlipidemia Hypertension Hypothyroid Migraine headache Physical Therapy Inpatient Evaluation/Re-Eval M1 PT/OT-IP Prior Functional Status Start: 02/25/23 11:16 Freq: Status: Active Protocol: Document 02/25/23 11:17 BC (Rec: 02/25/23 11:43 [id number]) Medical Review Prior Functional Status Medical History Reviewed Yes Diet/Fluid Consistency Regular Communication Independent Mobility and Gait Multiple falls in last few weeks. Recently began using a SBQC. Activities of Daily Living and IADL's Independent with self care ADLs. Ex spouse assists with errands , driving and meals. Per Pt she no longer drives due to seizures. Prior Functional Level (Other details) Pt reports overall low motivation to be active. States she does not like having help but knows without help she won't do much. Social History Household Members none Living Arrangements House Number of Floors (Floors) Two Floors Number of Stairs To Enter/Railing? Level at front door entry. Stairs in garage entry. Second floor is basement with laundry otherwise she stays on the main floor. Home Environment Standard Height Toilet,Tub/ Shower Home Equipment Quad Cane Additional Social History Comment Pt tangential at times with PLOF reporting. In regards to type of tub/shower, states do you know what a mop sink is? Well that is what my shower floor is like. Sounds like a walk in shower but with a larger lip to enter. She has a built in shower bench. She does not have grab bars and does not want any because it would reduce the value of the home. M2 PT-IP Current Condition Start: 02/25/23 11:16 Freq: Status: Active Protocol: Document 02/25/23 11:17 BC (Rec: 02/25/23 11:43 [id number]) Physical Therapy Current Condition Current Condition Evaluation Date 02/25/23 Treatment Diagnosis difficulty with ambulation, frequent falls Onset Date 02/24/23 M3 PT-IP Subjective Start: 02/25/23 11:16 Freq: Status: Active Protocol: Document 02/25/23 11:17 BC (Rec: 02/25/23 11:43 [id number]) Subjective Physical Therapy Visit Type Type Initial Evaluation Visit Start Time 10:40 Visit Stop Time 11:05 Notes 24 Physical Therapy Visit Comments Patient Comments Pt politely admits to not wanting to have rehab/therapy. States she is not a good patient and likes to be left alone. She was agreeable to an evaluation up to a certain point and then she stated that she was done. Patient Goals None stated Therapy Pain Assessment Pain When Pain Assessed At Rest Pain Present Pain Present Denied Pain M4 PT-IP Mobility and Gait Start: 02/25/23 11:16 Freq: Status: Active Protocol: Document 02/25/23 11:17 BC (Rec: 02/25/23 11:43 [id number]) PT-Bed Mobility Assessment Rolling Level of Assist Independent Supine to Sit Supine to Sit Independent Sit to Supine Sit to Supine Independent Scooting Scooting to Edge of Bed Independent Scooting Up and Down in Bed Independent PT-Transfer Assessment Sit to and From Stand Sit to and from Stand Contact Guard Assistance,Use of Upper Extremities Equipment Transfer Assistive Device Gait Belt,Small Based Quad Cane Transfers Transfer Destination Bed Transfer Technique Stand Pivot Transfer Ability Level of Assist Contact Guard Assistance Comments Mobility Comments Pt appears impulsive with transfers given her recent hx of falls. When PT entered room she immediately started to get out of bed without assist or cues. She stood up on floor but standing on her flip flops and nearly losing balance laterally. Cued and assisted back to sit EOB for hx review and subjective. She immediately and rapidly laid straight back into bed nearly hitting head on opposite bed railing. Pt's explanantion to her movements are that I am just really tired. Gait Assessment Gait Gait Assistance Required: Contact Guard Assist,Minimum Assistance Distance (Feet) 30 Assistive Devices Assistive Device Gait Belt,Small Based Quad Cane Gait Deviations General Gait Pattern Antalgic,Decreased Stride Length,Lateral Trunk Lean, Narrow Based Gait Factors Limiting Gait Function Factors Limiting Gait Function Decreased Activity Tolerance, Difficulty Following Directions,Incoordination,Poor Balance,Poor Safety Awareness Comments Gait Comments Gait in room only per Pt request. She ambulated ~30' needing CGA for safety and min A 2x due to lateral LOB. She has a SBQC from home and is set too low for her height. PT adjusted and Pt reports that feels better. She is not using SBQC safely, at times not placing it entirely on the ground. Listing/LOB with direction changes in room. Stair Climbing Assessment Comments Stair Climbing Comments NT on eval PT-Balance Assessment Sitting Balance and Reactions Static Sitting Balance Ability Good Dynamic Sitting Balance Ability Good Standing Balance and Reactions Static Standing Balance Ability Fair Dynamic Standing Balance Ability Fair Functional Assessments Functional Tests Tinetti Balance and Gait Assessment M5 PT-IP Objective Assessments Start: 02/25/23 11:16 Freq: Status: Active Protocol: Document 02/25/23 11:17 BC (Rec: 02/25/23 11:43 [id number]) Orientation Orientation/Cognition Level of Alertness Alert Orientation Name,Date,Place,Situation Language Function Ability No Deficits Noted Safety Awareness Decreased Safety Awareness Comments Pt is oriented; however, at one point she states who is that looking opposite direction of PT standing in room. When I asked what she means. She states I thought I heard another voice. Her answers to questions are at times tangential. Gross Range of Motion Upper Extremity ROM Assessment Within Functional Limits Lower Extremity ROM Assessment Within Functional Limits Strength Upper Extremity Strength Assessment Within Functional Limits Lower Extremity Strength Assessment Within Functional Limits Comments Strength Comments Needs repeat cues for some MMT sequencing. Coordination Assessment Gross Coordination Gross Coordination WNL Assessment Finger to Nose Test Normal Performance Pronation/Supination Test Normal Performance Foot Tapping Test Normal Performance Sensation Assessment Sensation Gross Sensation WNL Light Touch Intact Proprioception (Position) Intact Other Assessments Other Other Assessments Oculomotor: Smooth pursuit, saccades and convergence WNLs M6 PT-IP Treatment Start: 02/25/23 11:16 Freq: Status: Active Protocol: Document 02/25/23 11:17 BC (Rec: 02/25/23 11:43 [id number]) Physical Therapy Treatment Education Education Provided Safety Other Treatments Other Treatment Performed Education on role of PT in acute care. Recommendations on SBQC height and reasoning. Safety education, use of marketing communications manager socks vs flip flops. M7 PT-IP Assessment and Plan Start: 02/25/23 11:16 Freq: Status: Active Protocol: Document 02/25/23 11:17 BC (Rec: 02/25/23 11:43 [id number]) PT Summary Assessment and Plan Potential Rehabilitation Potential Good Status of Condition at Evaluation Evolving Summary Impairments Balance,Coordination,Cognition ,Transfers,Gait,Activity Tolerance Progress Towards Goals Progressing Toward Goals Assessment Summary Pt admitted due to multiple falls in last 2 weeks and tremors. She lives alone but has assist of her ex . She has a hx of a brain aneurysm post coiling. She does not drive due to seizures . As best as I could obtain from Pt, she is independent at baseline but has been having more falls. She reports falling posteriorly most often . Not always associated with dizziness. CLOF: Pt is requiring min to CGA with mobility primarily due to reduced safety awareness. She is a high fall risk on Tinetti testing. She is not accurately using a SBQC. She has reduced activity tolerance . Pt limited PT session due to reports of fatigue, multiple times of lying back into bed during session, and at the end stating I am done. Pt assisted back to bed with all needs in reach and bed alarm on. Ultimately discharge recommendation will need to consider OT assessment due to in large part due to fall risk from reduced safety awareness /cognition. Based on today's assessment she would need 24/7 caregiver support for safety and fall risk. Goals Bed Mobility Goal Independent Transfer Goal Independent Gait Goal Independent Gait Distance 150' with FWW or SBQC Other Goals Ascend/descend 2-3 steps with SBA to access her garage Days to Meet Goals 5 Frequency of Treatment Frequency Of Treatment Once a Day Treatment Plan Physical Therapy Treatment Plan Bed Mobility Training,Transfer Training,Gait Training, Therapeutic Exercise,Balance Retraining,Discharge Planning, Neuromuscular Re-ed, Coordination Retraining Recommendations To Nursing Amount of Assist Needed 1 Person Assist Discharge Recommendations PT Discharge Recommendations Home with 24/7 Assist Available,SNF Rehab Other Discharge Recommendations Discharge at this time would require 24/7 assist for safety based on min/CGA for gait, high fall risk on Tinetti and multiple falls prior to hospitalization. Pending OT consult for further assessment of cognitive function with safety during ADLs/mobility.
[2023-02-25] MEDS: cefTRIAXone 1,000 MG in SODIUM CHLORIDE 0.9% 100 ML 200 MG IV (12:28)
--- NOTE | 2023-02-25 12:55 | PM.PN.1 ---
Subjective Subjective Interval history: Patient has had MRI of the brain which is no acute findings and echocardiogram has been completed but not read as of yet. Patient was beginning to have normalized blood pressure is well with most recent being 116/65 and has no new complaints. Exam Vital Signs (past 8 hours): - 02/25/23 05:00 02/25/23 07:00 02/25/23 09:59 Temperature 98.6 F 97.3 F L Pulse Rate 70 67 67 Respiratory Rate 18 17 Blood Pressure 141/72 H 150/65 H 150/60 H Pulse Oximetry 100 97 Oxygen Flow Rate 0 02/25/23 11:00 Temperature 97.8 F Pulse Rate 70 Respiratory Rate 17 Blood Pressure 116/65 Pulse Oximetry 96 Oxygen Flow Rate 0 Oxygen Delivery Method Room Air Oxygen Flow Rate 0 Narrative Exam Narrative: General:? Patient is a well-developed, well-nourished in no distress at this time. HEENT:? Normocephalic, trachea is midline. Pupils equal reactive to light. Extraocular movements normal. Patient wearing glasses. Chest:? Normal AP diameter and contour without kyphoscoliosis, no nasal flaring, retractions, or tachypneic labored Lungs:? Clear to auscultation. No wheezes or crackles. Cardio:? S1 & S2 with regular rate and rhythm with no extra sounds or murmurs. Abdomen:? Soft nontender, negative for organomegaly, or masses.? Bowel sounds are present in all 4 quadrants. No tenderness. Musculoskeletal:? Muscle strength and tone are equal within normal limits.? Full range of motion intact radial and pedal pulses are normal. Skin:? Warm dry and intact without rashes or lesions. Bruise to left forearm. Neuro:? Alert and orientated x3, moves all extremities, sensation to touch intact, no gross deficits noted of cranial nerves. Psych:? Patient has a well-kept appearance, appropriate affect, mental status attitude thought context and judgment are appropriate for age Objective Labs 02/25/23 04:35 02/25/23 04:35 Labs: Laboratory Results - last 24 hr 02/24/23 02/24/23 02/24/23 12:26 12:26 12:26 WBC RBC Hgb Hct MCV MCH MCHC RDW Plt Count Neut % (Auto) Lymph % (Auto) [place] % (Auto) Eos % (Auto) Baso % (Auto) Neut # (Auto) Lymph # (Auto) [place] # (Auto) Eos # (Auto) Baso # (Auto) Sodium Potassium Chloride Carbon Dioxide BUN Creatinine Estimated GFR BUN/Creatinine Ratio Glucose Calcium CK-MB (CK-2) 4.94 H CK-MB (CK-2) Rel Index 1.5 Troponin I < 0.012 NT-Pro-B Natriuret Pep 239 Triglycerides 89 Cholesterol 401 H LDL Cholesterol, Calc 312 H HDL Cholesterol 71 H TSH Urine RBC Urine WBC Ur Squamous Epith Cells Amorphous Sediment Urine Bacteria Ur Culture Indicated? SARS-CoV-2 (PCR) 02/24/23 02/24/23 02/24/23 12:26 13:27 17:30 WBC RBC Hgb Hct MCV MCH MCHC RDW Plt Count Neut % (Auto) Lymph % (Auto) [place] % (Auto) Eos % (Auto) Baso % (Auto) Neut # (Auto) Lymph # (Auto) [place] # (Auto) Eos # (Auto) Baso # (Auto) Sodium Potassium Chloride Carbon Dioxide BUN Creatinine Estimated GFR BUN/Creatinine Ratio Glucose Calcium CK-MB (CK-2) CK-MB (CK-2) Rel Index Troponin I NT-Pro-B Natriuret Pep Triglycerides Cholesterol LDL Cholesterol, Calc HDL Cholesterol TSH 2.50 Urine RBC 0-1/hpf Urine WBC 1-5/hpf Ur Squamous Epith Cells 1-5 /hpf Amorphous Sediment 1+ Urine Bacteria Moderate (10-30) H Ur Culture Indicated? Specimen cultured SARS-CoV-2 (PCR) Negative 02/24/23 02/25/23 02/25/23 20:35 02:13 04:35 WBC 6.7 RBC 4.14 Hgb 11.6 L Hct 34.7 L MCV 83.8 MCH 28.0 MCHC 33.4 RDW 14.3 Plt Count 266 Neut % (Auto) 52.8 Lymph % (Auto) 31.6 [place] % (Auto) 12.1 Eos % (Auto) 2.9 Baso % (Auto) 0.6 Neut # (Auto) 3500 Lymph # (Auto) 2100 [place] # (Auto) 800 Eos # (Auto) 200 Baso # (Auto) 0 Sodium Potassium Chloride Carbon Dioxide BUN Creatinine Estimated GFR BUN/Creatinine Ratio Glucose Calcium CK-MB (CK-2) CK-MB (CK-2) Rel Index Troponin I < 0.012 < 0.012 NT-Pro-B Natriuret Pep Triglycerides Cholesterol LDL Cholesterol, Calc HDL Cholesterol TSH Urine RBC Urine WBC Ur Squamous Epith Cells Amorphous Sediment Urine Bacteria Ur Culture Indicated? SARS-CoV-2 (PCR) 02/25/23 04:35 WBC RBC Hgb Hct MCV MCH MCHC RDW Plt Count Neut % (Auto) Lymph % (Auto) [place] % (Auto) Eos % (Auto) Baso % (Auto) Neut # (Auto) Lymph # (Auto) [place] # (Auto) Eos # (Auto) Baso # (Auto) Sodium 136 L Potassium 3.5 Chloride 101 Carbon Dioxide 26 BUN 30 H Creatinine 1.16 H Estimated GFR 49 L BUN/Creatinine Ratio 25.9 H Glucose 86 Calcium 8.9 CK-MB (CK-2) CK-MB (CK-2) Rel Index Troponin I NT-Pro-B Natriuret Pep Triglycerides Cholesterol LDL Cholesterol, Calc HDL Cholesterol TSH Urine RBC Urine WBC Ur Squamous Epith Cells Amorphous Sediment Urine Bacteria Ur Culture Indicated? SARS-CoV-2 (PCR) [facility] Medical History Cerebral aneurysm without rupture Coronary artery disease Depression Hyperlipidemia Hypertension Hypothyroid Migraine headache Surgical History History of coronary artery stent placement Hx of appendectomy Status post coil embolization of cerebral aneurysm Family History Father No problems noted. Mother Respiratory disease Cerebral aneurysm Brother In good health Social History household members: none Smoking Status: Former smoker alcohol intake: never substance use type: does not use Assessment & Plan Assessment & Plan narrative: 1. TIA, right-sided weakness/tremor/frequent falls balance-coordination issues, Acute, present on admission -symptoms have resolved on admit and remain resolved, NIH:0 -neuro checks and NIH as needed -ordered Lipitor, lipid panel, BNP, A1C -Creatinine kinase 321,? -consult PT/OT 2.? Hypertension urgency, acute, with hypertensive, essential chronic, present on admission -ED:BP is 213/86, 223/88. Today with initiating lisinopril 5 mg b.i.d. the patient has normalized to blood pressure of 116/65. We will assess stability of this. -She states she was weaned down on her blood pressure medication at least 3 months ago because her blood pressure was very labile. -initiate lisinopril 5 mg p.o. b.i.d. -ordered echo/stress test-echo completed but not read. Stress test still pending -CK-2:4.94, initial troponin negative, will trend x3 -troponin remains negative. 3. CAD w/stent placement x2, Carotid artery, left occlusion, right stenosis, chronic, present on admission -H/N CTA negative for any acute process, chronic occlusion of left ICA, 65-70 % stenosis of right ICA -ordered bilateral carotid Doppler -remain pending -continue Plavix/ASA 4. Cystitis, acute, present on admission -urinalysis is positive for bacteria moderate, culture firm no growth. We will discontinue Rocephin -NS at 60 cc/HR 5. CKD stage G3a, chronic, present on admission - sodium 135, BUN 31, creatinine 1.22, GFR 46 -today creatinine 1.16 and estimated GFR 49, improving -(10/10/2022 BUN 21 creatinine 1.28 GFR 44). ? , ? 6.? Hypothyroidism, chronic, present on admission -will continue patient's levothyroxine -Ordered TSH -normal 7.? Depression, chronic, present on admission -continue bupropion? ?8.? Cerebral aneurysm, chronic, present on admission -no associated rupture or bleed -status post coiling no residual neurologic sequelae. 9. Asthma, chronic, present on admission -continue asthma/albuterol Follow clinically and labs/tests. Code status:? DNR Surrogate decision maker:? David Reich friend
[2023-02-25] MEDS: ASPIRIN EC 81 MG TABLET PO (17:16)
[2023-02-25] MEDS: diazePAM 2 MG TABLET PO (20:50)
[2023-02-25] MEDS: SENNOSIDES 8.6 MG TABLET 17.2 MG PO (20:51)
[2023-02-25] MEDS: ATORVASTATIN 20 MG TABLET PO (20:51)
[2023-02-25] MEDS: SODIUM CHLORIDE 0.9% FLUSH 10 ML IV (20:51)
[2023-02-26 00:10] VITALS: BP 156/79; PULSE 83; RESP 19; TEMP 36; O2SAT 99
[2023-02-26 05:00] VITALS: BP 170/77; PULSE 75; RESP 17; TEMP 36.2; O2SAT 97
[2023-02-26 05:29] LABS: Blood Urea Nitrogen 28 mg/dL (7-17); Calcium 8.9 mg/dL (8.4-10.2); Carbon Dioxide 30 mmol/L (22-32); Chloride 103 mmol/L (98-107); Estimated Glomerular Filt Rate 44 mL/min (>60); Glucose 95 mg/dL (80-110); HEMOLYSIS < 15 (0-50); Potassium 3.6 mmol/L (3.4-5.1); Sodium 137 mmol/L (137-145)
[2023-02-26 06:19] LABS: x Labcorp Estim. Avg Glu (eAG) 114 mg/dL (.); x Labcorp Hemoglobin A1c 5.6 % (4.8-5.6)
[2023-02-26 08:18] VITALS: BP 191/71; PULSE 66; RESP 16; TEMP 36.3; O2SAT 98
[2023-02-26] MEDS: ACETAMINOPHEN 325 MG TABLET 650 MG PO (08:30)
[2023-02-26 09:16] VITALS: BP 138/68; PULSE 70
[2023-02-26] MEDS: CLOPIDOGREL 75 MG TABLET PO (09:16)
[2023-02-26] MEDS: lisinopriL 5 MG TABLET PO (09:16)
[2023-02-26] MEDS: ENOXAPARIN 40 MG/0.4 ML SYRINGE SUBCUT (09:16)
[2023-02-26] MEDS: LEVOTHYROXINE 75 MCG TABLET PO (09:16)
[2023-02-26] MEDS: SODIUM CHLORIDE 0.9% FLUSH 10 ML IV (09:16)
[2023-02-26] MEDS: buPROPion XL 150 MG TAB 300 MG PO (09:16)
[2023-02-26 12:33] VITALS: BP 155/64; PULSE 68; RESP 16; TEMP 36.6; O2SAT 96
--- NOTE | 2023-02-26 13:00 | DI.US.S_ITS ---
PROCEDURE: US CAROTID DOPPLER BI INDICATIONS: TIA TECHNIQUE: Color and pulse Doppler interrogation was performed of both carotid systems, with image documentation and velocity measurements. COMPARISON: [facility], , US CAROTID DOPPLER BI, 06/24/2019, 14:39. FINDINGS: Stenosis calculations are based on SRU (Society of Radiologists in Ultrasound) criteria. Right side: Brachial blood pressure: 162/68 mm Hg. Common carotid artery peak systolic velocity: 93 cm/sec. Internal carotid artery peak systolic velocity: 152 cm/sec. Internal carotid artery end diastolic velocity: 43 cm/sec. External carotid artery peak systolic velocity: 118 cm/sec. ICA/CCA peak systolic ratio: 1.6 . Hansen scale imaging description: Atherosclerotic plaque Percent internal carotid artery stenosis: Greater than 50 . Vertebral artery: Nonvisualized Left side: Brachial blood pressure: 169/69 mm Hg. Common carotid artery peak systolic velocity: 77 cm/sec. Internal carotid artery peak systolic velocity: Occluded Internal carotid artery end diastolic velocity: Occluded External carotid artery peak systolic velocity: 153 cm/sec. ICA/CCA peak systolic ratio: Not applicable Hansen scale imaging description: Atherosclerotic plaque Percent internal carotid artery stenosis: Occluded Vertebral artery: Flow direction is antegrade. IMPRESSION: Stable occluded left ICA paragraphs Greater than 50% stenosis, right proximal ICA Nonvisualized right vertebral artery Approved by: Sandeep Baxter M.D. on 02/26/2023 at 14:26
--- NOTE | 2023-02-26 13:39 | CM.DPC ---
Addendum entered by Massiel Mauricio R.N. 02/26/23 14:52: Went over the providers with patient at [facility], brought in number, and circled the providers that are accepting new patients. Encouraged her to call in the am, and to let the clinic know she would need a new patient appointment to be established, but also a hospital follow up. It is recommended that she get a stress test, but would need to be ordered by her new provider on an outpatient basis. Original Note: DCP Cont: Patient should be discharging home today. She will need a follow up appointment with a new provider. This DC Purchasing Buyer is unable to call over at [facility] next door to assist in the process, but will encourage patient to call them in the morning, for a newly established appointment, and to see if she can let them know that she needs a hospital follow up. Dr. Kemp will give patient some medications to tie her over until then. P: Patient should discharge today, will go by her room and give her the provider information. Massiel Mauricio RN/Foam Charger
[2023-02-26 14:18] VITALS: BP 162/68; PULSE 72
[2023-02-26] MEDS: METOPROLOL ER 25 MG TABLET PO (14:18)
--- NOTE | 2023-02-26 14:33 | P.DS_ITS ---
History of Present Illness History of Present Illness Date Patient Seen: 02/26/23 Chief complaint: ballance issues/ high BP/ vomiting Discharge Providers Provider Date of admission: 02/24/23 20:02 Discharge Date: 02/26/23 Primary care physician: Doctor Savannah MD Consults: 02/24/23 20:05 Consult to Occupational Therapy Evaluate & Treat Comment: rt sided weakness /tremor Physician Instructions: Evaluate and treat Consult to Physical Therapy Evaluate & Treat Comment: rt sided weakness /tremor Physician Instructions: Evaluate and Treat 02/24/23 20:14 Consult to Dietitian, Adult Routine Comment: Reason For Exam: BMI 20.3 Consult to Discharge Planning Routine Comment: Discharge provider: Irina Phipps MD Summary Hospital Course Discharge Diagnosis: TIA Hypertensive urgency Hypertension History coronary artery disease with stent placement x2 History carotid artery occlusion left side with stenosis on the right side Cystitis Chronic kidney disease stage IIIA Hypothyroidism Depression History of cerebral aneurysm Asthma, chronic Hyperlipidemia Other comorbidities/past medical history: Migraine headache Hx of appendectomy Status post coil embolization of cerebral aneurysm Hospital Course: Mindi Benson is a 77 yr old female with a history coronary artery disease with prior stent placement, hyperlipidemia, hypertension, asthma, status post coiling of cerebral aneurysm, hypothyroidism, migraines and depression?presented to ED with Complains of headache and high blood pressure, daily nausea and vomiting often times after eating, increased fatigue, tremors, right-sided weakness,? balance issues, 3-4 falls, falling backwards and hitting her head at least 3 times without loss of consciousness all over the past 2 weeks.? Patient indicated that she is had problems with maintaining her medication due to using a mail order service and her physician/nurse practitioner changing her medication. Has not been on had a hypertensive medication recently. The nurse practitioner and she was going to has moved from the area. Needs a new provider. Patient presented with hypertensive urgency BP is 213/86, 223/88. Patient has history of brain aneurysm coiling over a decade ago at [facility].? Has been doing well. Patient feels like she is drifting towards the right when she walks.? She states she was weaned down on her blood pressure medication at least 3 months ago because her blood pressure was very labile. On admit patient denied chest pain, shortness in breath, headache, changes in vision, difficulty swallowing, speech impairment, weakness, numbness, tingling,? LOC, fever, body aches, chills,recent exposure to illness, abdominal pain,urinary incontinence/retention, dysuria, frequency, urgency, hematuria, bowel incontinence, melena, rashes, recent changes to medication, illness,or trauma. CTA of head and neck as well as MRI of the brain confirmed no acute findings in regards to a CVA. Echocardiogram revealed 65-70% ejection fraction. Carotid Doppler is pending at this time however the CTA of the neck demonstrates Chronic occlusion of the left internal carotid artery from the origin and 65-70% stenosis of the right internal carotid artery at the origin. For stress test will be completed as an outpatient following discharge. Patient needs to establish with a new practitioner with [facility]. Follow-up of the carotid Doppler and the stress test can be completed at that time. Patient was discharged with 30 day supply prescriptions for her medication to allow her to establish with a new provider. Status at Discharge Cognitive/behavioral status at discharge: oriented and at baseline, oriented Functional status at discharge: independent ambulation Overall status at discharge: patient is back to baseline Time Spent with Patient Time spent: Greater than 30 minutes Exam Vital Signs (past 8 hours): - 02/26/23 08:18 02/26/23 09:16 02/26/23 08:00 Temperature 97.4 F L Pulse Rate 66 70 Respiratory Rate 16 Blood Pressure 191/71 H 138/68 Pulse Oximetry 98 Oxygen Delivery Method Room Air Oxygen Flow Rate 0 02/26/23 12:33 02/26/23 14:18 Temperature 98 F Pulse Rate 68 72 Respiratory Rate 16 Blood Pressure 155/64 H 162/68 H Pulse Oximetry 96 Oxygen Delivery Method Oxygen Flow Rate 0 Oxygen Delivery Method Room Air Oxygen Flow Rate 0 Objective Labs 02/25/23 04:35 02/26/23 04:44 Labs: Laboratory Results - last 24 hr 02/24/23 02/26/23 12:26 04:44 Sodium 137 Potassium 3.6 Chloride 103 Carbon Dioxide 30 BUN 28 H Creatinine 1.27 H Estimated GFR 44 L BUN/Creatinine Ratio 22.0 Glucose 95 Hgb A1c (Ref Lab) 5.6 Estim Average Glucose 114 Calcium 8.9 PFSH Medical History Cerebral aneurysm without rupture Coronary artery disease Depression Hyperlipidemia Hypertension Hypothyroid Migraine headache Surgical History History of coronary artery stent placement Hx of appendectomy Status post coil embolization of cerebral aneurysm Family History Father No problems noted. Mother Respiratory disease Cerebral aneurysm Brother In good health Social History household members: none Smoking Status: Former smoker alcohol intake: never substance use type: does not use Discharge Plan Discharge Plan Patient Disposition: Home Provider Discharge Comment: Range for a provider at [facility]. 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 Obtain prescriptions at [facility] pharmacy. Attend outpatient stress test. Discharge orders & Medications Prescriptions: New atorvastatin [Lipitor] 20 mg Tablet 80 mg PO BEDTIME Qty: 30 0RF nitroglycerin [Nitrostat] 0.4 mg Tablet, Sublingual 0.4 mg sublingual [id number] PRN (Reason: Chest Pain) Qty: 15 0RF lisinopril 5 mg Tablet 5 mg PO BID Qty: 60 0RF metoprolol succinate 25 mg Tablet Extended Release 24 Hr 25 mg PO DAILY Qty: 30 0RF Continued aspirin 81 mg Tablet,Delayed Release (Dr/Ec) 81 mg PO QPM ondansetron HCl 4 mg tablet 4 mg PO Q12HR PRN (Reason: nausea/vomiting) clopidogrel 75 mg tablet 75 mg PO DAILY Patient Comments: TAKE 1 TABLET BY MOUTH DAILY levothyroxine 75 mcg tablet 75 mcg PO QAM Patient Comments: TAKE 1 TABLET BY MOUTH EVERY DAY albuterol sulfate 90 mcg/actuation HFA aerosol inhaler 1 inh INHALATION Q4HR PRN (Reason: Shortness Of Breath) bupropion HCl 300 mg tablet extended release 24 hr 300 mg PO DAILY Advair HFA 230-21 mcg/actuation HFA aerosol inhaler 2 inh INHALATION BID Follow up/Referrals: Doctor Nuñez MD [Primary Care Provider] - Visit Report/Discharge Packet Instructions: Nitroglycerin Sublingual, Metoprolol Stand Alone Forms: Patient Portal/API, Stroke Signs & Symptoms Discharge Data Primary Care Provider: Doctor Savannah Attending Provider: Ana Jacobs Admit Date/Time: 02/24/23 20:02
--- NOTE | 2023-02-26 16:33 | PC.NURSE ---
Pt discharged home by private vehicle at 1630, escorted off floor in wheelchair accompanied by hospital staff. IV removed, tele d/c'd, discharge teaching reviewed including new medications, importance of making a primary care appointment and worsening symptoms. Questions answered and concerns addressed. This nurse communicated with [facility] pharmacy to make sure pt's medications were accurate and ready. Pt left the floor with all belongings.
--- NOTE | 2023-03-06 15:56 | PC.NURSE ---
Late Entry: Ceftriaxone infusion initiated on 02/25 at 5:01 complete at 5:32. Ceftriaxone infusion initiated on 02/25 at 12:28 complete at 12:58.
== END 2023-02-26 16:35 | disposition home or self-care (01) ==
LOC: ED 19:46 → AC 20:03
PROVIDERS: Admitting Provider Nurse Practitioner Family; Emergency Provider Emergency Medicine; Visit Provider Nurse Practitioner Family
DX: G45.9 Transient cerebral ischemic attack, unspecified (principal); R11.2 Nausea with vomiting, unspecified; R29.700 NIHSS score 0; I16.0 Hypertensive urgency; I67.1 Cerebral aneurysm, nonruptured; I25.10 Atherosclerotic heart disease of native coronary artery without angina pectoris; Z95.818 Presence of other cardiac implants and grafts; N30.00 Acute cystitis without hematuria; B96.89 Other specified bacterial agents as the cause of diseases classified elsewhere; I12.9 Hypertensive chronic kidney disease with stage 1 through stage 4 chronic kidney disease, or unspecified chronic kidney disease; N18.31 Chronic kidney disease, stage 3a; E03.9 Hypothyroidism, unspecified; Z20.822 Contact with and (suspected) exposure to COVID-19
CPT/HCPCS: 36415; 70450; 70496; 70498; 70551; 71045; 80048; 80053; 80061; 81003; 81015; 82550; 82553; 83036; 83690; 83735; 83880; 84443; 84484; 85025; 85610; 85730; 87086; 87635; 93005; 93010; 93306; 93880; 96365; 96366; 96372; 96374; 96375; 97162; 97530; 99285; C9803; G0378; A9270; J0696; J1650; Q9967

== ENCOUNTER 2023-03-15 10:21 | Emergency (ER) | payer MEDICARE, SELFPAY ==
[2023-03-02 10:28] VITALS: BMI 21.1
[2023-03-15] VITALS (24 sets, daily range): BP systolic 128–194; BP diastolic 60–93; PULSE 71–93; RESP 17–22; TEMP 36.6–37.2; O2SAT 93–100; BMI 19.7
[2023-03-15] MEDS: ONDANSETRON 4 MG/2 ML INJ IV ×2 (10:44→14:43)
--- NOTE | 2023-03-15 10:51 | PC.NURSE ---
Pt states that for the past few days she has been constantly nauseous which causes vomiting. Denies abd pain. Was prescribed zofran that has helped minimally. Also reports dizziness with head movement.
[2023-03-15 10:56] LABS: Add Manual Diff / Slide Review NO; Basophils Absolute Auto 0 /uL (0-100); Basophils Percent Auto 0.4 % (0-2); Eosinophils Absolute Auto 100 /uL (0-450); Hemoglobin 13.3 g/dL (12.0-16.0); Lymphocytes Absolute Auto 1000 /uL (1100-4500); Lymphocytes Percent Auto 12.7 % (25-40); Mean Corpuscular Hemoglobin 28.3 PG (26-34); Monocytes Absolute Auto 1000 /uL (0-900); Monocytes Percent Auto 12.6 % (3-14); Neutrophils Absolute Auto 5700 /uL (1500-7000); Neutrophils Percent Auto 73.3 % (50-75); Platelet Count 308 X10^3/uL (150-400); Red Cell Distribution Width 15.3 % (11.6-14.8); White Blood Cell Count 7.8 X10^3/uL (4.5-11.0)
[2023-03-15 11:21] LABS: Alanine Aminotransferase 427 IU/L (<35); Albumin 4.4 g/dL (3.5-5.0); Albumin Globulin Ratio 0.9 (1.0-2.8); Alkaline Phosphatase 795 U/L (38-126); Aspartate Aminotransferase 529 IU/L (14-36); BUN Creatinine Ratio 18.8 (6-22); Bilirubin Total 2.2 mg/dL (0.2-1.3); Blood Urea Nitrogen 26 mg/dL (7-17); Calcium 10.2 mg/dL (8.4-10.2); Carbon Dioxide 30 mmol/L (22-32); Chloride 94 mmol/L (98-107); Estimated Glomerular Filt Rate 40 mL/min (>60); Globulin 5.1 g/dL (1.7-4.1); Glucose 102 mg/dL (80-110); HEMOLYSIS < 15 (0-50); Lipase 137 U/L (23-300); Potassium 3.7 mmol/L (3.4-5.1); Sodium 136 mmol/L (137-145); Total Protein 9.5 g/dL (6.3-8.2)
--- NOTE | 2023-03-15 11:35 | DI.US.S_ITS ---
PROCEDURE: US ABDOMEN COMPLETE INDICATIONS: Abdominal pain/vomiting/elevated liver enzymes TECHNIQUE: Real-time scanning was performed of the abdominal and retroperitoneal organs, with image documentation. COMPARISON: [facility], CT, CT CHEST ABD PEL W CON, 06/18/2021, 9:22. FINDINGS: Liver: The liver demonstrates normal size. The liver demonstrates generalized mildly increased echogenicity. This decreases ultrasound sensitivity for detection of hepatic masses. Gallbladder: There is limited evaluation of the gallbladder. No definite stones, wall thickening or pericholecystic fluid can be seen. The sonographic Antoine sign is negative. Biliary ducts: Intrahepatic bile ducts are non-dilated. Extrahepatic bile duct caliber measures 4 mm. Normal is 6-7 mm or less in diameter, or 10 mm or less post-cholecystectomy. Pancreas: Visualized portions of the pancreas are sonographically normal. Spleen: Spleen is normal in size and homogeneous in echotexture. Kidneys: Kidneys are normal in size and echotexture. Right kidney measures 8.5 cm long; left kidney measures 9.2 cm long. No hydronephrosis or nephrolithiasis. No solid masses. Aorta: Visualized aorta is normal in caliber at less than 3 cm. Iliacs: Not seen. IVC: Intrahepatic inferior vena cava is patent. Miscellaneous: No free abdominal fluid. Overall scan quality is limited by bowel gas. IMPRESSION: Limited evaluation of the gallbladder, without a significant abnormality seen. No biliary dilatation. The liver demonstrates increased echogenicity. This finding is nonspecific, yet it is most commonly attributed to fatty infiltration. Dictated by: Kaiser Beach M.D. on 03/15/2023 at 12:24 Approved by: Kaiser Beach M.D. on 03/15/2023 at 12:26
--- NOTE | 2023-03-15 11:36 | ED.NAVMDI ---
HPI - Nausea/Vomiting/Diarrhea <Cain Morris MD - Last Filed: 03/23/23 05:33> General Chief complaint: Nausea/Vomiting/Diarrhea Stated complaint: vomiting t-2 days Time Seen by Provider: 03/15/23 11:26 Source: patient Mode of arrival: Ambulatory History of Present Illness HPI Narrative: Patient sent here from Dr. Cueto general surgery office for evaluation of abdominal pain nausea and vomiting. Onset 5 weeks ago has been off and on but worse in the past 2 days. Unable to tolerate anything by mouth. Has had dark urine. Patient still has her gallbladder. Does not drink daily alcohol. No fever chills. Patient states does have mid back pain with this as well. No urinary complaints otherwise. Related Data Home Medications Medication Instructions Recorded Confirmed aspirin 81 mg tablet,delayed 81 mg PO QPM 01/28/19 03/15/23 release albuterol sulfate 90 mcg/actuation 1 inh inhalation Q4HR PRN 02/24/23 03/15/23 aerosol inhaler Shortness Of Breath bupropion HCl 300 mg 24 hr tablet, 300 mg PO DAILY 02/24/23 03/15/23 extended release clopidogrel 75 mg tablet 75 mg PO DAILY 02/24/23 03/15/23 fluticasone propionate 230 2 inh inhalation BID 02/24/23 03/15/23 mcg-salmeterol 21 mcg/actuation HFA inhaler (Advair HFA) levothyroxine 75 mcg tablet 75 mcg PO QAM 02/24/23 03/15/23 ondansetron HCl 4 mg tablet 4 mg PO Q12HR PRN nausea/vomiting 02/24/23 03/15/23 Previous Rx's Medication Instructions Recorded atorvastatin 20 mg tablet (Lipitor) 80 mg PO BEDTIME #30 tabs 02/26/23 lisinopril 5 mg tablet 5 mg PO BID #60 tabs 02/26/23 metoprolol succinate 25 mg 25 mg PO DAILY #30 tabs 02/26/23 tablet,extended release 24 hr nitroglycerin 0.4 mg sublingual 0.4 mg sublingual [id number] PRN 02/26/23 tablet (Nitrostat) Chest Pain #15 tabs metoclopramide HCl 10 mg tablet 10 mg PO QAC #20 tabs 03/15/23 promethazine 25 mg [address] Q6H PRN nausea and 03/15/23 suppository vomiting #12 ea promethazine 25 mg tablet 25 mg PO TID PRN nausea and 03/15/23 vomiting #20 tabs Allergies Allergy/AdvReac Type Severity Reaction Status Date / Time No Known Drug Allergies Allergy Verified 03/15/23 09:48 Review of Systems <Cain Morris MD - Last Filed: 03/23/23 05:33> Review of Systems Narrative: GENERAL: negative chills, fatigue, malaise, fever, sweats. 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 Mother Respiratory disease Cerebral aneurysm Brother In good health Social History household members: none Smoking Status: Former smoker alcohol intake: never substance use type: does not use Smoking Status: Former smoker alcohol intake frequency: 0-2 drinks per day Substance Use Type: does not use Exam <Cain Morris MD - Last Filed: 03/23/23 05:33> Narrative Exam Narrative: GENERAL: in no distress, not toxic not dyspneic HEAD: Normocephalic. EYES: Pupils equal round no icterus ENT: Mucous membranes moist. NECK: Trachea midline. CARDIOVASCULAR: Regular rate and rhythm without murmurs RESPIRATORY: Clear to auscultation. Breath sounds equal bilaterally. No wheezes, rales, or rhonchi. GASTROINTESTINAL: Abdomen soft, mild epigastric tenderness no peritoneal signs, no pain out of proportion to exam, bowel sounds are present. No CVA tenderness EXTREMITIES: No gross deformities. BACK: No flank tenderness. NEURO: AOx4. SKIN: Warm and dry no jaundice PSYCH: Not anxious, is cooperative Initial Vital Signs Initial Vital Signs: Vital Signs Pulse Rate 78 03/15/23 10:31 Blood Pressure 194/76 H 03/15/23 10:31 <Flavia Goldsmith MD - Last Filed: 03/15/23 21:04> Initial Vital Signs Initial Vital Signs: Vital Signs Pulse Rate 78 03/15/23 10:31 Blood Pressure 194/76 H 03/15/23 10:31 Course <Cain Morris MD - Last Filed: 03/23/23 05:33> Orders Ordered: Discontinued Medications Sodium Chloride (Normal Saline 0.9%) 1,000 mls @ 1,000 mls/hr IV BOLUS ONE Stop: 03/15/23 12:33 Last Infusion: 03/15/23 12:56 Dose: 0 mls/hr Documented By: Admin: 03/15/23 11:59 Dose: 1,000 mls/hr Documented By: DREAD Sodium Chloride (Normal Saline 0.9%) 1,000 mls @ 1,000 mls/hr IV BOLUS ONE Stop: 03/15/23 21:04 Last Infusion: 03/15/23 21:47 Dose: 0 mls/hr Documented By: Admin: 03/15/23 20:36 Dose: 1,000 mls/hr Documented By: SPF Metoclopramide HCl (Metoclopramide 10 Mg/2 Ml Inj) 10 mg IV NOW ONE Stop: 03/15/23 20:04 Last Admin: 03/15/23 20:36 Dose: 10 mg Documented By: SPF Ondansetron HCl (Ondansetron 4 Mg Odt) 4 mg PO NOW PRN PRN Reason: Nausea And Vomiting Ondansetron HCl (Ondansetron 4 Mg/2 Ml Inj) 4 mg IV NOW PRN PRN Reason: Nausea And Vomiting Last Admin: 03/15/23 10:44 Dose: 4 mg Documented By: AMU Ondansetron HCl (Ondansetron 4 Mg/2 Ml Inj) 4 mg IV NOW ONE Stop: 03/15/23 14:39 Last Admin: 03/15/23 14:43 Dose: 4 mg Documented By: MARIA VICTORIA Vital Signs Vital signs: Vital Signs - 8 hr 03/15/23 12:30 03/15/23 12:30 03/15/23 13:00 Pulse Rate 81 Respiratory Rate Blood Pressure 128/64 150/70 H Pulse Oximetry Oxygen Delivery Method 03/15/23 13:00 03/15/23 13:30 03/15/23 13:30 Pulse Rate 78 82 Respiratory Rate Blood Pressure 140/69 Pulse Oximetry 97 99 Oxygen Delivery Method 03/15/23 14:00 03/15/23 14:00 03/15/23 14:36 Pulse Rate 79 85 Respiratory Rate Blood Pressure 129/60 Pulse Oximetry 99 Oxygen Delivery Method 03/15/23 14:36 03/15/23 14:42 03/15/23 14:42 Pulse Rate 77 Respiratory Rate 18 Blood Pressure 166/77 H 159/71 H Pulse Oximetry 99 Oxygen Delivery Method Room Air 03/15/23 15:00 03/15/23 15:00 03/15/23 15:30 Pulse Rate 75 Respiratory Rate 18 Blood Pressure 150/93 H 154/70 H Pulse Oximetry 94 Oxygen Delivery Method 03/15/23 15:30 03/15/23 16:00 03/15/23 16:00 Pulse Rate 75 74 Respiratory Rate 20 17 Blood Pressure 140/65 Pulse Oximetry 94 94 Oxygen Delivery Method Room Air Room Air 03/15/23 16:30 03/15/23 16:30 03/15/23 17:00 Pulse Rate 74 Respiratory Rate 19 Blood Pressure 160/74 H 169/77 H Pulse Oximetry 96 Oxygen Delivery Method 03/15/23 17:00 03/15/23 17:30 03/15/23 17:30 Pulse Rate 74 75 Respiratory Rate 22 Blood Pressure 176/74 H Pulse Oximetry 96 Oxygen Delivery Method Room Air <Flavia Goldsmith MD - Last Filed: 03/15/23 21:04> Orders Ordered: Discontinued Medications Sodium Chloride (Normal Saline 0.9%) 1,000 mls @ 1,000 mls/hr IV BOLUS ONE Stop: 03/15/23 12:33 Last Infusion: 03/15/23 12:56 Dose: 0 mls/hr Documented By: Admin: 03/15/23 11:59 Dose: 1,000 mls/hr Documented By: DREAD Sodium Chloride (Normal Saline 0.9%) 1,000 mls @ 1,000 mls/hr IV BOLUS ONE Stop: 03/15/23 21:04 Last Infusion: 03/15/23 21:47 Dose: 0 mls/hr Documented By: MARIA VICTORIA Admin: 03/15/23 20:36 Dose: 1,000 mls/hr Documented By: MARIA VICTORIA Metoclopramide HCl (Metoclopramide 10 Mg/2 Ml Inj) 10 mg IV NOW ONE Stop: 03/15/23 20:04 Last Admin: 03/15/23 20:36 Dose: 10 mg Documented By: MARIA VICTORIA Ondansetron HCl (Ondansetron 4 Mg Odt) 4 mg PO NOW PRN PRN Reason: Nausea And Vomiting Ondansetron HCl (Ondansetron 4 Mg/2 Ml Inj) 4 mg IV NOW PRN PRN Reason: Nausea And Vomiting Last Admin: 03/15/23 10:44 Dose: 4 mg Documented By: EVELINE Ondansetron HCl (Ondansetron 4 Mg/2 Ml Inj) 4 mg IV NOW ONE Stop: 03/15/23 14:39 Last Admin: 03/15/23 14:43 Dose: 4 mg Documented By: MARIA VICTORIA Vital Signs Vital signs: Vital Signs - 8 hr 03/15/23 12:30 03/15/23 12:30 03/15/23 13:00 Pulse Rate 81 Respiratory Rate Blood Pressure 128/64 150/70 H Pulse Oximetry Oxygen Delivery Method 03/15/23 13:00 03/15/23 13:30 03/15/23 13:30 Pulse Rate 78 82 Respiratory Rate Blood Pressure 140/69 Pulse Oximetry 97 99 Oxygen Delivery Method 03/15/23 14:00 03/15/23 14:00 03/15/23 14:36 Pulse Rate 79 85 Respiratory Rate Blood Pressure 129/60 Pulse Oximetry 99 Oxygen Delivery Method 03/15/23 14:36 03/15/23 14:42 03/15/23 14:42 Pulse Rate 77 Respiratory Rate 18 Blood Pressure 166/77 H 159/71 H Pulse Oximetry 99 Oxygen Delivery Method Room Air 03/15/23 15:00 03/15/23 15:00 03/15/23 15:30 Pulse Rate 75 Respiratory Rate 18 Blood Pressure 150/93 H 154/70 H Pulse Oximetry 94 Oxygen Delivery Method 03/15/23 15:30 03/15/23 16:00 03/15/23 16:00 Pulse Rate 75 74 Respiratory Rate 20 17 Blood Pressure 140/65 Pulse Oximetry 94 94 Oxygen Delivery Method Room Air Room Air 03/15/23 16:30 03/15/23 16:30 03/15/23 17:00 Pulse Rate 74 Respiratory Rate 19 Blood Pressure 160/74 H 169/77 H Pulse Oximetry 96 Oxygen Delivery Method 03/15/23 17:00 03/15/23 17:30 03/15/23 17:30 Pulse Rate 74 75 Respiratory Rate 22 Blood Pressure 176/74 H Pulse Oximetry 96 Oxygen Delivery Method Room Air MDM - Nausea/Vomiting/Diarrhea <Cain Morris MD - Last Filed: 03/23/23 05:33> Lab Data 03/15/23 10:40 03/15/23 10:40 Labs: Lab Results 03/15/23 03/15/23 03/15/23 Range/Units 10:40 10:40 10:40 WBC 7.8 (4.5-11.0) X10^3/uL RBC 4.70 (4.0-5.2) X10^6/uL Hgb 13.3 (12.0-16.0) g/dL Hct 39.0 (36-46) % MCV 83.0 (80-100) fL MCH 28.3 (26-34) PG MCHC 34.0 (30-36) % RDW 15.3 H (11.6-14.8) % Plt Count 308 (150-400) X10^3/uL Neut % (Auto) 73.3 (50-75) % Lymph % (Auto) 12.7 L (25-40) % Luna % (Auto) 12.6 (3-14) % Eos % (Auto) 1.0 L (2-4) % Baso % (Auto) 0.4 (0-2) % Neut # (Auto) 5700 (3749-1198) /uL Lymph # (Auto) 1000 L (9921-7987) /uL Luna # (Auto) 1000 H (0-900) /uL Eos # (Auto) 100 (0-450) /uL Baso # (Auto) 0 (0-100) /uL Sodium 136 L (137-145) mmol/L Potassium 3.7 (3.4-5.1) mmol/L Chloride 94 L (98-107) mmol/L Carbon Dioxide 30 (22-32) mmol/L BUN 26 H (7-17) mg/dL Creatinine 1.38 H (0.52-1.04) mg/dL Estimated GFR 40 L (>60) mL/min BUN/Creatinine Ratio 18.8 (6-22) Glucose 102 (80-110) mg/dL Calcium 10.2 (8.4-10.2) mg/dL Total Bilirubin 2.2 H (0.2-1.3) mg/dL AST 529 H (14-36) IU/L ALT 427 H (<35) IU/L Alkaline Phosphatase 795 H (38-126) U/L Total Protein 9.5 H (6.3-8.2) g/dL Albumin 4.4 (3.5-5.0) g/dL Globulin 5.1 H (1.7-4.1) g/dL Albumin/Globulin Ratio 0.9 L (1.0-2.8) Lipase 137 (23-300) U/L SARS-CoV-2 (PCR) (Negative) Hepatitis A IgM Ab Negative (Negative) Hep Bs Antigen Negative (Negative) Hep B Core IgM Ab Negative (Negative) Hepatitis C Antibody Non reactive (Non Reactive) Hep C Ab Signal/Cutoff Comment (.) 03/15/23 Range/Units 12:00 WBC (4.5-11.0) X10^3/uL RBC (4.0-5.2) X10^6/uL Hgb (12.0-16.0) g/dL Hct (36-46) % MCV (80-100) fL MCH (26-34) PG MCHC (30-36) % RDW (11.6-14.8) % Plt Count (150-400) X10^3/uL Neut % (Auto) (50-75) % Lymph % (Auto) (25-40) % Luna % (Auto) (3-14) % Eos % (Auto) (2-4) % Baso % (Auto) (0-2) % Neut # (Auto) (6239-9490) /uL Lymph # (Auto) (7658-5255) /uL Luna # (Auto) (0-900) /uL Eos # (Auto) (0-450) /uL Baso # (Auto) (0-100) /uL Sodium (137-145) mmol/L Potassium (3.4-5.1) mmol/L Chloride (98-107) mmol/L Carbon Dioxide (22-32) mmol/L BUN (7-17) mg/dL Creatinine (0.52-1.04) mg/dL Estimated GFR (>60) mL/min BUN/Creatinine Ratio (6-22) Glucose (80-110) mg/dL Calcium (8.4-10.2) mg/dL Total Bilirubin (0.2-1.3) mg/dL AST (14-36) IU/L ALT (<35) IU/L Alkaline Phosphatase (38-126) U/L Total Protein (6.3-8.2) g/dL Albumin (3.5-5.0) g/dL Globulin (1.7-4.1) g/dL Albumin/Globulin Ratio (1.0-2.8) Lipase (23-300) U/L SARS-CoV-2 (PCR) Negative (Negative) Hepatitis A IgM Ab (Negative) Hep Bs Antigen (Negative) Hep B Core IgM Ab (Negative) Hepatitis C Antibody (Non Reactive) Hep C Ab Signal/Cutoff (.) [facility] Narrative Medical decision making narrative: Patient sent here from Dr. Cueto general surgery office for evaluation of abdominal pain nausea and vomiting. Onset 5 weeks ago has been off and on but worse in the past 2 days. Unable to tolerate anything by mouth. Has had dark urine. Patient still has her gallbladder. Does not drink daily alcohol. No fever chills. Patient states does have mid back pain with this as well. No urinary complaints otherwise. After history and exam CBC CMP lipase normal saline Zofran ultrasound abdomen MDM CC: Complicating co-morbidities: None Data collected from: Patient and ex- Medical records reviewed: General surgery office Dr. Cueto office visit this morning Differential considered: Includes but not limited to cholecystitis cholelithiasis biliary dyskinesia hepatitis pancreatitis Exam documented above, pertinent findings include: Mild epigastric tenderness Lab Test results independently reviewed as above. Pertinent findings: WBC 7.8 hemoglobin 13 platelets 308 BUN 26 creatinine 1.38 GFR 40 total bilirubin 2.2 AST 529 ALT 427 alkaline phosphatase 795 Independently reviewed EKG as above normal sinus rhythm rate [address] elevation or depression Imaging studies independently reviewed: Abdominal ultrasound/CT abdomen pelvis no acute process Consultations: 4:[address] Vega, hospitalist, recommends MRCP, call him back with results. Treatments: Zofran normal saline Re-evaluations: 4:30 p.m.. Updated patient results and understands needs MRCP. At this time nausea has improved. Discussion: 6:00 p.m., signed out to Dr. Cartagena, MRCP results are pending Diagnosis: <Flavia Goldsmith MD - Last Filed: 03/15/23 21:04> Lab Data Labs: Lab Results 03/15/23 03/15/23 03/15/23 Range/Units 10:40 10:40 10:40 WBC 7.8 (4.5-11.0) X10^3/uL RBC 4.70 (4.0-5.2) X10^6/uL Hgb 13.3 (12.0-16.0) g/dL Hct 39.0 (36-46) % MCV 83.0 (80-100) fL MCH 28.3 (26-34) PG MCHC 34.0 (30-36) % RDW 15.3 H (11.6-14.8) % Plt Count 308 (150-400) X10^3/uL Neut % (Auto) 73.3 (50-75) % Lymph % (Auto) 12.7 L (25-40) % Luna % (Auto) 12.6 (3-14) % Eos % (Auto) 1.0 L (2-4) % Baso % (Auto) 0.4 (0-2) % Neut # (Auto) 5700 (3288-4762) /uL Lymph # (Auto) 1000 L (7090-0309) /uL Luna # (Auto) 1000 H (0-900) /uL Eos # (Auto) 100 (0-450) /uL Baso # (Auto) 0 (0-100) /uL Sodium 136 L (137-145) mmol/L Potassium 3.7 (3.4-5.1) mmol/L Chloride 94 L (98-107) mmol/L Carbon Dioxide 30 (22-32) mmol/L BUN 26 H (7-17) mg/dL Creatinine 1.38 H (0.52-1.04) mg/dL Estimated GFR 40 L (>60) mL/min BUN/Creatinine Ratio 18.8 (6-22) Glucose 102 (80-110) mg/dL Calcium 10.2 (8.4-10.2) mg/dL Total Bilirubin 2.2 H (0.2-1.3) mg/dL AST 529 H (14-36) IU/L ALT 427 H (<35) IU/L Alkaline Phosphatase 795 H (38-126) U/L Total Protein 9.5 H (6.3-8.2) g/dL Albumin 4.4 (3.5-5.0) g/dL Globulin 5.1 H (1.7-4.1) g/dL Albumin/Globulin Ratio 0.9 L (1.0-2.8) Lipase 137 (23-300) U/L SARS-CoV-2 (PCR) (Negative) Hepatitis A IgM Ab Negative (Negative) Hep Bs Antigen Negative (Negative) Hep B Core IgM Ab Negative (Negative) Hepatitis C Antibody Non reactive (Non Reactive) Hep C Ab Signal/Cutoff Comment (.) 03/15/23 Range/Units 12:00 WBC (4.5-11.0) X10^3/uL RBC (4.0-5.2) X10^6/uL Hgb (12.0-16.0) g/dL Hct (36-46) % MCV (80-100) fL MCH (26-34) PG MCHC (30-36) % RDW (11.6-14.8) % Plt Count (150-400) X10^3/uL Neut % (Auto) (50-75) % Lymph % (Auto) (25-40) % Luna % (Auto) (3-14) % Eos % (Auto) (2-4) % Baso % (Auto) (0-2) % Neut # (Auto) (1914-6609) /uL Lymph # (Auto) (2489-3399) /uL Luna # (Auto) (0-900) /uL Eos # (Auto) (0-450) /uL Baso # (Auto) (0-100) /uL Sodium (137-145) mmol/L Potassium (3.4-5.1) mmol/L Chloride (98-107) mmol/L Carbon Dioxide (22-32) mmol/L BUN (7-17) mg/dL Creatinine (0.52-1.04) mg/dL Estimated GFR (>60) mL/min BUN/Creatinine Ratio (6-22) Glucose (80-110) mg/dL Calcium (8.4-10.2) mg/dL Total Bilirubin (0.2-1.3) mg/dL AST (14-36) IU/L ALT (<35) IU/L Alkaline Phosphatase (38-126) U/L Total Protein (6.3-8.2) g/dL Albumin (3.5-5.0) g/dL Globulin (1.7-4.1) g/dL Albumin/Globulin Ratio (1.0-2.8) Lipase (23-300) U/L SARS-CoV-2 (PCR) Negative (Negative) Hepatitis A IgM Ab (Negative) Hep Bs Antigen (Negative) Hep B Core IgM Ab (Negative) Hepatitis C Antibody (Non Reactive) Hep C Ab Signal/Cutoff (.) MDM Narrative Medical decision making narrative: Patient sent here from Dr. Cueto general surgery office for evaluation of abdominal pain nausea and vomiting. Onset 5 weeks ago has been off and on but worse in the past 2 days. Unable to tolerate anything by mouth. Has had dark urine. Patient still has her gallbladder. Does not drink daily alcohol. No fever chills. Patient states does have mid back pain with this as well. No urinary complaints otherwise. Patient was admitted on February 26 with headache and hypertension with mild hypoxia secondary to her COPD. Significant vascular issues and end of life discussion indicates that patient definitely prefers a focus on comfortable without heroic measures. She has been having continued dysphagia and continued weight loss. Seen in surgery clinic today in follow-up from recent hospitalization and sent to the ER for persistent vomiting and increased LFTs. 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 NO coronary stenting. MDM Complicating co-morbidities: None Data collected from: Patient and ex- Medical records reviewed: General surgery office Dr. Cueto office visit this morning. Hospital discharge 02/26/23 Differential considered: Includes but not limited to cholecystitis cholelithiasis biliary dyskinesia hepatitis pancreatitis tumors/mass Exam documented above, pertinent findings include: Mild epigastric tenderness Lab Test results independently reviewed as above. Pertinent findings: WBC 7.8 hemoglobin 13 platelets 308 BUN 26 creatinine 1.38 GFR 40 total bilirubin 2.2 AST 529 ALT 427 alkaline phosphatase 795 Independently reviewed EKG as above normal sinus rhythm rate [address] elevation or depression Imaging studies independently reviewed: Abdominal ultrasound/CT abdomen pelvis no acute process MRCP of the abdomen is done that shows persistent mild dilatation of the biliary system since at least 2020 with some mild contrast accumulation in the region of the ampulla. Radiologist suggests considering ampullary sclerosis versus likely a small mass consider ERCP. Consultations: 4:[address] Vega, hospitalist, recommends MRCP, call him back with results. 845pm discussed with Dr. Bermeo, director blood bank at [facility]. At this point there is no pressing reason that she actually needs to be admitted to the hospital and she would much prefer discharge home. Outpatient follow-up will be arranged and [facility] will contact the patient within the next 48 hours. She understands that ERCP will likely be the next step. Treatments: Zofran normal saline Re-evaluations: 4:30 p.m.. Updated patient results and understands needs MRCP. At this time nausea has improved. Discussion: 6:00 p.m., signed out to Dr. Goldsmith, MRCP results are pending 8pm patient is seen and evaluated. Care is assumed. She continues to have nausea, Zofran orally had not been working anymore. Seem to be moderately helpful over the course of her ER stay today. Care is discussed with the hospital service after MRCP results reviewed. Given the mild contrast accumulation in the region of the ampulla and the recommendation to consider ERCP for possibility of ampullary sclerosis or a small mass, will review with Gastroenterology. Patient is updated on all of these findings. At this point she is definitely not going to have any type of surgical procedure this evening, will add Reglan for nausea control and offer her liquids and any type of food she would like to try this evening. Reviewed all findings with patient. With shared decision-making we opted to not admit her. She would like help with nausea control at home but is not specifically complaining of pain. She notes that she is somewhat constipated. We talked about Reglan and Phenergan orally rather than ondansetron. Will also give her a small prescription for Phenergan suppositories. She is concerned that they may not be effective as she is constipated and I encouraged her to try slipping the suppositories close to the skin rather into the middle of stool and it will be absorbed. At this time there is no evidence of acute cholecystitis, ascending cholangitis, acute pancreatitis, acute hepatitis or other reasons for immediate hospitalization. 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 Fortunately we were able to get a dramatic number of diagnostic studies done today which I think will overall significantly shorten the time to a final diagnosis for you You do not have an acute gallbladder infection, acute bacterial infection in your liver, no obvious acute hepatitis and no evidence of pancreatitis. There is no need for antibiotics and no need for immediate hospitalization tonight. I am concerned that you have a stricture at the ampulla of Vater. This is where the gallbladder and the pancreatic ducts come together to empty into the small intestine. To further evaluate this you will need an ERCP. This is an endoscopy that looks into your stomach and slightly beyond and does require specialization from the [employer]. I have spoken with Dr. Bermeo, director blood bank on-call at [facility]. I have sent him a message with all of your updated contact information and the gastroenterology office will be contacting you within the next 1-2 days to set up an ERCP as an outpatient. Hopefully, this will not require any overnight hospital issues. If you do not hear from the gastroenterology office, please contact them at [phone]. In the meantime, I will give you some additional medications to try to help control your nausea. Reglan/metaclopramide may help with your constipation and can be taken every 6 hours Phenergan/promethiazine can help with sleeping and can be used either is a pill or as a suppository if the vomiting is so overwhelming your unable to keep pills down. All prescriptions were electronically transmitted to [facility] in [place] If you find that you are vomiting can not be controlled, you becoming more dehydrated, more jaundiced, develop fevers or worsening pain you need to return to the emergency department. Prescriptions: New metoclopramide HCl 10 mg tablet 10 mg PO QAC Qty: 20 1RF Rx Instructions: administer 30 minutes before meals promethazine 25 mg tablet 25 mg PO TID PRN (Reason: nausea and vomiting) Qty: 20 1RF promethazine 25 mg suppository [address] Q6H PRN (Reason: nausea and vomiting) Qty: 12 0RF No Action aspirin 81 mg Tablet,Delayed Release (Dr/Ec) 81 mg PO QPM ondansetron HCl 4 mg tablet 4 mg PO Q12HR PRN (Reason: nausea/vomiting) clopidogrel 75 mg tablet 75 mg PO DAILY Patient Comments: TAKE 1 TABLET BY MOUTH DAILY levothyroxine 75 mcg tablet 75 mcg PO QAM Patient Comments: TAKE 1 TABLET BY MOUTH EVERY DAY albuterol sulfate 90 mcg/actuation HFA aerosol inhaler 1 inh INHALATION Q4HR PRN (Reason: Shortness Of Breath) bupropion HCl 300 mg tablet extended release 24 hr 300 mg PO DAILY Advair HFA 230-21 mcg/actuation HFA aerosol inhaler 2 inh INHALATION BID atorvastatin [Lipitor] 20 mg Tablet 80 mg PO BEDTIME Qty: 30 0RF nitroglycerin [Nitrostat] 0.4 mg Tablet, Sublingual 0.4 mg sublingual [id number] PRN (Reason: Chest Pain) Qty: 15 0RF lisinopril 5 mg Tablet 5 mg PO BID Qty: 60 0RF metoprolol succinate 25 mg Tablet Extended Release 24 Hr 25 mg PO DAILY Qty: 30 0RF Referrals: Crista Mota DO [Primary Care Provider] - Stand Alone Forms: Patient Portal/API
[2023-03-15] MEDS: SODIUM CHLORIDE 0.9% 1,000 ML 1000 ML IV ×2 (11:59→20:36)
[2023-03-15 12:21] LABS: COVID19 -Nasal RAPID Negative (Negative)
--- NOTE | 2023-03-15 13:45 | DI.CT.S_ITS ---
PROCEDURE: CT ABDOMEN PELVIS W CON INDICATIONS: IV contrast only/abdominal pain/vomiting TECHNIQUE: After the administration of intravenous contrast, axial sections acquired from the lung bases to the pubic symphysis. Coronal and sagittal reformats were performed. For radiation dose reduction, the following was used: automated exposure control, adjustment of mA and/or kV according to patient size. COMPARISON: None. FINDINGS: Image quality: Excellent. Lung bases: Unremarkable. Heart: No significant findings. ABDOMEN: Liver: Unremarkable. Gallbladder: Surgically absent. Biliary ducts: Within normal limits, status post cholecystectomy. Pancreas: Unremarkable. Spleen: Splenic granuloma. Adrenal Glands: Unremarkable. Kidneys and Ureters: Unremarkable. Stomach and Bowel: Stomach, small bowel loops, and colon are unremarkable. Peritoneum: No abnormal intraperitoneal fluid. No free air. Ventral Wall: No hernias. Abdominal Nodes: No retroperitoneal or mesenteric adenopathy by size criteria. Vessels: Aorta and inferior vena cava are normal in size. PELVIS: Pelvic Organs: Unremarkable. Bladder: Unremarkable. Pelvic Nodes: No enlarged lymph nodes. Miscellaneous: No hernias are seen. Bones: Grade 1 anterolisthesis of L4 on L5 secondary to facet arthrosis. IMPRESSION: No acute abnormality. No bowel obstruction. No CT evidence of enterocolitis. Dictated by: Raad West M.D. on 03/15/2023 at 14:34 Approved by: Raad West M.D. on 03/15/2023 at 14:36
--- NOTE | 2023-03-15 16:29 | DI.MRI.S_ITS ---
PROCEDURE: MR ABDOMEN WO/W CON INDICATIONS: Nausea vomiting/elevated liver enzymes TECHNIQUE: Coronal HASTE, axial 2D FLASH in- and [id number]; axial breath-hold T2 FSE. Dynamic axial VIBE during the administration of contrast; post-contrast coronal VIBE or 2D FLASH with fat saturation from the hepatic dome to the iliac crests. Optional diffusion weighted imaging and ADC may be performed. COMPARISON: [facility], CT, CT ABDOMEN PELVIS W CON, 03/15/2023, 14:03. [facility], US, US ABDOMEN COMPLETE, 03/15/2023, 12:11. FINDINGS: Image quality: Good Lower chest: The lung bases are not well evaluated on this study. No pleural effusions. Solid organs: No significant chemical shift artifact in the liver to suggest significant steatosis. No focal liver lesion identified. Gallbladder is unremarkable. The CBD is mildly dilated measuring 9-10 mm, a chronic finding that was seen in 2020 CT. No convincing filling defect. There is some contrast accumulation in the region of the ampulla (). No pathologic pancreatic ductal dilation. No splenomegaly. No adrenal nodules. No hydronephrosis. Vessels and lymph nodes: There are mildly enlarged pati hepatis lymph nodes, for example image 19/44 measuring 1.6 cm. Significant atherosclerotic disease with metallic artifact in the region of the proximal aorta, difficult to evaluate on MRI. A small outpouching is seen in the distal aorta, as before. No aneurysmal dilation. Bowel and peritoneum: No evidence of small bowel obstruction. Above average fecal loading. No pathologic ascites or abscess. Body wall: Unremarkable Bones: Suspected degenerative changes, no suspicious osseous finding. IMPRESSION: No acute changes compared to prior imaging. Persistent mild dilation of the biliary system since at least 2020, with some mild contrast accumulation in the region of the ampulla, consider ampullary sclerosis versus less likely a small mass. Consider ERCP correlation if there is concern. Mildly enlarged pati hepatis lymph nodes, commonly seen in the setting of chronic liver disease. Consider liver parenchymal sampling to further evaluate if necessary. Other findings as above. Dictated by: Dimas North M.D. on 03/15/2023 at 18:43 Approved by: Dimas North M.D. on 03/15/2023 at 18:55
[2023-03-15] MEDS: METOCLOPRAMIDE 10 MG/2 ML INJ IV (20:36)
[2023-03-17 02:36] LABS: HBsAg Screen Negative (Negative); Hepatitis A Antibody IgM Negative (Negative); Hepatitis B Core Antibody IgM Negative (Negative); Hepatitis C Antibody Non Reactive (Non Reactive)
== END 2023-03-15 22:05 | disposition home or self-care (01) ==
PROVIDERS: Emergency Medicine; Emergency Provider Emergency Medicine; PCP Family Medicine
DX: K83.1 Obstruction of bile duct (principal); R79.89 Other specified abnormal findings of blood chemistry; R11.2 Nausea with vomiting, unspecified; Z79.899 Other long term (current) drug therapy; Z20.822 Contact with and (suspected) exposure to COVID-19; E86.0 Dehydration
CPT/HCPCS: 36415; 74177; 74183; 76700; 80053; 80074; 83690; 85025; 87635; 93005; 96361; 96374; 96375; 96376; 99213; 99284; 99285; C9803; A9579; J2405; J2765; Q9967

== ENCOUNTER 2023-05-02 09:45 | Emergency (ER) | payer MEDICARE, SELFPAY ==
[2023-03-02 10:28] VITALS: BMI 21.1
[2023-05-02 09:48] VITALS: BP 157/67; PULSE 75; RESP 15; TEMP 36.4; O2SAT 98; BMI 19.1
--- NOTE | 2023-05-02 09:55 | DI.CT.S_ITS ---
PROCEDURE: CT HEAD/BRAIN WO CON INDICATIONS: fall down stairs,on plavix and asa TECHNIQUE: Noncontrast 4.5 mm thick angled axial sections acquired from the foramen magnum to the vertex, with coronal and sagittal reformats. For radiation dose reduction, the following was used: automated exposure control, adjustment of mA and/or kV according to patient size. COMPARISON: [facility], CT, CT HEAD/BRAIN WO CON, 02/24/2023, 12:14. FINDINGS: Image quality: Good CSF spaces: Basal cisterns are patent. Lateral ventricles are symmetric. Volume: Vascular calcifications. Periventricular white matter disease is commonly seen with chronic microangiopathy. Volume loss is present. These findings are moderate Brain: No intracranial hemorrhage. Hansen-white differentiation is grossly maintained. Coil material again seen around the basilar tip. Encephalomalacia again seen in the left parietal occipital region. Craniofacial structures: No displaced fracture. Sinuses are clear. Orbits are intact. IMPRESSION: No acute intracranial abnormality. Dictated by: Dimas North M.D. on 05/02/2023 at 10:29 Approved by: Dimas North M.D. on 05/02/2023 at 10:31
--- NOTE | 2023-05-02 09:55 | DI.CT.S_ITS ---
PROCEDURE: CT CERVICAL SPINE WO CON INDICATIONS: fall down stairs,on plavix and asa TECHNIQUE: Noncontrast 3 mm thick sections acquired from the skull base to the T4 level. Sagittal and coronal reformats were then constructed. For radiation dose reduction, the following was used: automated exposure control, adjustment of mA and/or kV according to patient size. COMPARISON: None. FINDINGS: Image quality: Good Bones: There is reversal normal cervical lordosis. Moderate degenerative changes, with disc space height loss, osteophytes, and arthropathy. No acute vertebral body height loss or traumatic subluxation. Soft tissues: Upper lobe pulmonary scarring. There is nodularity, including an irregular nodule in the right upper lobe measuring up to 5 millimeters (4/), present in 2020. Vascular calcifications are present. A stent is in place in the brachiocephalic artery. IMPRESSION: Degenerative changes. No acute fracture or traumatic subluxation of the cervical spine. If there is high concern for further derangement, consider MRI evaluation. Dictated by: Dimas North M.D. on 05/02/2023 at 10:31 Approved by: Dimas North M.D. on 05/02/2023 at 10:33
--- NOTE | 2023-05-02 09:55 | DI.RAD.S_ITS ---
PROCEDURE: XR ANKLE LT MIN 3V INDICATIONS: fall down stairs,on plavix and asa TECHNIQUE: 3 views of the ankle were acquired. COMPARISON: None. FINDINGS: Bones: Ankle mortise appears maintained. There are degenerative changes of the ankle. Medial and lateral malleolar fixation hardware in place. Soft tissues: No suspicious calcification. A small hyperdensity is incidental noted on lateral view just plantar to the 5th metatarsal head. IMPRESSION: Postsurgical and degenerative changes. No acute radiographic abnormality. If there is high concern for occult injury, consider repeat radiography or cross-sectional imaging. A small hyperdensity is incidental noted on lateral view just plantar to the 5th metatarsal head. Dictated by: Dimas North M.D. on 05/02/2023 at 10:36 Approved by: Dimas North M.D. on 05/02/2023 at 10:38
[2023-05-02 10:41] LABS: Add Manual Diff / Slide Review NO; Basophils Absolute Auto 100 /uL (0-100); Basophils Percent Auto 0.7 % (0-2); Eosinophils Absolute Auto 200 /uL (0-450); Eosinophils Percent Auto 2.2 % (2-4); Hematocrit 35.1 % (36-46); Hemoglobin 11.6 g/dL (12.0-16.0); Lymphocytes Absolute Auto 1700 /uL (1100-4500); Mean Corpuscular Hemoglobin 29.1 PG (26-34); Mean Corpuscular Volume 88.2 fL (80-100); Monocytes Absolute Auto 800 /uL (0-900); Monocytes Percent Auto 9.8 % (3-14); Neutrophils Absolute Auto 5200 /uL (1500-7000); Neutrophils Percent Auto 66.3 % (50-75); Platelet Count 225 X10^3/uL (150-400); Red Blood Cell Count 3.98 X10^6/uL (4.0-5.2); Red Cell Distribution Width 18.3 % (11.6-14.8); White Blood Cell Count 7.9 X10^3/uL (4.5-11.0)
[2023-05-02 10:59] LABS: Alanine Aminotransferase 156 IU/L (<35); Albumin 3.4 g/dL (3.5-5.0); Albumin Globulin Ratio 0.9 (1.0-2.8); Alkaline Phosphatase 224 U/L (38-126); Aspartate Aminotransferase 195 IU/L (14-36); BUN Creatinine Ratio 15.9 (6-22); Bilirubin Total 0.5 mg/dL (0.2-1.3); Blood Urea Nitrogen 13 mg/dL (7-17); Calcium 8.5 mg/dL (8.4-10.2); Carbon Dioxide 27 mmol/L (22-32); Chloride 103 mmol/L (98-107); Estimated Glomerular Filt Rate > 60 mL/min (>60); Globulin 3.8 g/dL (1.7-4.1); Glucose 123 mg/dL (80-110); HEMOLYSIS < 15 (0-50); Potassium 3.5 mmol/L (3.4-5.1); Sodium 137 mmol/L (137-145); Total Protein 7.2 g/dL (6.3-8.2)
--- NOTE | 2023-05-02 11:22 | ED.FALL ---
HPI - Fall <Ian Casanova PA-C - Last Filed: 05/02/23 12:47> General Chief Complaint: Fall Stated Complaint: L/ankle swollen, thinks there is a infection Time Seen by Provider: 05/02/23 10:15 Source: patient Mode of arrival: Ambulatory History of Present Illness HPI Narrative: 78-year-old female with past medical history COPD, hyperlipidemia, CKD, hypertension, hypothyroidism, depression presents to the ED with 5 days of left ankle pain. Patient states that she suffered a mechanical fall on the steps leading down to her basement, when her foot caught on 1 of the stairs, she fell and skidded down the stairs. Unclear if there was a head strike. Patient denies loss of consciousness. Patient denies headache, neck pain. Patient states that her left ankle feels tender to palpation and painful when she bears weight and walks. Patient states that she has had prior surgery to the ankle. Related Data Home Medications Medication Instructions Recorded Confirmed aspirin 81 mg tablet,delayed 81 mg PO QPM 01/28/19 04/10/23 release albuterol sulfate 90 mcg/actuation 1 inh inhalation Q4HR PRN 02/24/23 04/10/23 aerosol inhaler Shortness Of Breath fluticasone propionate 230 2 inh inhalation BID 02/24/23 04/10/23 mcg-salmeterol 21 mcg/actuation HFA inhaler (Advair HFA) Previous Rx's Medication Instructions Recorded nitroglycerin 0.4 mg sublingual 0.4 mg sublingual [id number] PRN 02/26/23 tablet (Nitrostat) Chest Pain #15 tabs promethazine 25 mg rectal 25 mg [place] Q6H PRN nausea and 03/15/23 suppository vomiting #12 ea promethazine 25 mg tablet 25 mg PO TID PRN nausea and 03/15/23 vomiting #20 tabs metoprolol succinate 25 mg 25 mg PO DAILY #90 tabs 03/28/23 tablet,extended release 24 hr ondansetron HCl 4 mg tablet 4 mg PO Q6-8H PRN nausea/vomiting 03/28/23 #30 tabs Portable Oxygen Concentrator #1 ea 04/10/23 atorvastatin 80 mg tablet (Lipitor) 80 mg PO BEDTIME cholesterol #90 04/10/23 tabs bupropion HCl 300 mg 24 hr tablet, 300 mg PO DAILY #90 tabs 04/10/23 extended release clopidogrel 75 mg tablet 75 mg PO DAILY #90 tabs 04/10/23 levothyroxine 75 mcg tablet 75 mcg PO QAM #90 tabs 04/10/23 lisinopril 5 mg tablet 5 mg PO BID #60 tabs 04/10/23 cephalexin 500 mg capsule 500 mg PO Q8H 5 days #15 caps 05/02/23 Allergies Allergy/AdvReac Type Severity Reaction Status Date / Time No Known Drug Allergies Allergy Verified 05/02/23 09:48 Review of Systems <Ian Casanova PA-C - Last Filed: 05/02/23 12:47> Review of Systems ROS Unobtainable: All systems reviewed & are unremarkable except as noted in HPI and below Constitutional Constitutional: Denies chills, Denies fatigue, Denies fever(s), Denies frequent falls, Denies lethargy and Denies weakness Eyes Eyes: Denies change in vision, Denies eye discharge, Denies irritation and Denies loss of vision ENT Ears, Nose, Mouth, and Throat: Denies change in voice, Denies dizziness, Denies neck pain, Denies sore throat and Denies throat swelling Cardiovascular Cardiovascular: Denies chest pain, Denies irregular heart rhythm, Denies lightheadedness, Denies palpitations, Denies dyspnea, Denies dyspnea on exertion and Denies orthopnea Respiratory Respiratory: Denies cough, Denies dyspnea, Denies dyspnea on exertion and Denies wheezing Gastrointestinal Gastrointestinal: Denies abdominal pain, Denies change in bowel habits, Denies diarrhea, Denies nausea and Denies vomiting Genitourinary Genitourinary: Denies hematuria, Denies flank pain, Denies urinary incontinence and Denies urinary urgency Musculoskeletal Musculoskeletal: Denies back pain, Denies muscle weakness, Denies neck pain, Denies numbness and Denies tingling Comments: Left ankle swelling and pain Integumentary/Breasts Skin/Breast: Denies pruritus, Denies erythema, Denies rash and Denies wounds Neurologic Neurologic: Denies behavioral changes, Denies confusion, Denies dizziness, Denies frequent falls, Denies loss of vision, Denies numbness, Denies tingling and Denies weakness Psychiatric Psychiatric: Denies anxiety, Denies behavioral changes, Denies confusion, Denies depression, Denies homicidal ideation and Denies suicidal ideation Endocrine Endocrine: Denies fatigue, Denies flushing and Denies palpitations Hematologic/Lymphatic Hematologic/Lymphatic: Denies easy bruising Allergic/Immunologic Allergic/Immunologic: Denies urticaria, Denies throat swelling and Denies wheezing Patient History <Ian Casanova PA-C - Last Filed: 05/02/23 12:47> Medical History Benign essential HTN 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 Mother Respiratory disease Cerebral aneurysm Brother In good health Social History household members: none Smoking Status: Former smoker alcohol intake: never substance use type: does not use Smoking Status: Former smoker alcohol intake frequency: holidays/special occasions only Substance Use Type: does not use Exam <Ian Casanova PA-C - Last Filed: 05/02/23 12:47> Narrative Exam Narrative: Const General:?cooperative, healthy appearing and comfortable [facility] Head:?normal to inspection Ears:?hearing grossly normal bilaterally Nose:?external nose normal Face and sinus:?normal facial exam and sinuses nontender Mouth:?oral mucosae normal Throat:?posterior oropharynx normal Eyes General:?appearance normal, both eyes and all related structures Neck Neck:?normal visual inspection and no lymphadenopathy noted Resp Effort & Inspection:?normal respiratory effort Auscultation:?clear to auscultation bilaterally Cardio Rate:?regular rate Rhythm:?regular rhythm Musculoskeletal There is tenderness to palpation of the lateral aspect of left ankle. There appears to be an area of fluctuance and erythema. There is full range of motion. Strength and sensation is intact. Patient is neurovascularly intact. Neuro General:?patient alert, patient awake and patient oriented x3 Initial Vital Signs Initial Vital Signs: Vital Signs Temperature 97.5 F L 05/02/23 09:48 Pulse Rate 75 05/02/23 09:48 Respiratory Rate 15 05/02/23 09:48 Blood Pressure 157/67 H 05/02/23 09:48 Pulse Oximetry 98 05/02/23 09:48 Oxygen Delivery Method Room Air 05/02/23 09:48 <Irma Patel DO - Last Filed: 05/04/23 07:41> Initial Vital Signs Initial Vital Signs: Vital Signs Temperature 97.5 F L 05/02/23 09:48 Pulse Rate 75 05/02/23 09:48 Respiratory Rate 15 05/02/23 09:48 Blood Pressure 157/67 H 05/02/23 09:48 Pulse Oximetry 98 05/02/23 09:48 Oxygen Delivery Method Room Air 05/02/23 09:48 Course <CARMELINA Laws Last Filed: 05/02/23 12:47> Orders Ordered: ED Orders 05/02/23 09:55 CT cervical spine wo con Stat CT head/brain wo con Stat XR ankle LT min 3V Stat 05/02/23 10:35 Complete Blood Count AUTO DIFF Stat Comprehensive Metabolic Panel Stat 05/02/23 11:39 CT LE LT w con Stat Vital Signs Vital signs: Vital Signs - 8 hr 05/02/23 09:48 05/02/23 12:39 Temperature 97.5 F L Pulse Rate 75 69 Respiratory Rate 15 Blood Pressure 157/67 H 150/70 H Pulse Oximetry 98 96 Oxygen Delivery Method Room Air Room Air <Irma Patel DO - Last Filed: 05/04/23 07:41> Orders Ordered: ED Orders 05/02/23 09:55 CT cervical spine wo con Stat CT head/brain wo con Stat XR ankle LT min 3V Stat 05/02/23 10:35 Complete Blood Count AUTO DIFF Stat Comprehensive Metabolic Panel Stat 05/02/23 11:39 CT LE LT w con Stat Vital Signs Vital signs: Vital Signs - 8 hr 05/02/23 09:48 05/02/23 12:39 Temperature 97.5 F L Pulse Rate 75 69 Respiratory Rate 15 Blood Pressure 157/67 H 150/70 H Pulse Oximetry 98 96 Oxygen Delivery Method Room Air Room Air MDM - Fall <CARMELINA Laws Last Filed: 06/27/23 12:47> Lab Data 05/02/23 10:35 05/02/23 10:35 Labs: Lab Results 05/02/23 05/02/23 Range/Units 10:35 10:35 WBC 7.9 (4.5-11.0) X10^3/uL RBC 3.98 L (4.0-5.2) X10^6/uL Hgb 11.6 L (12.0-16.0) g/dL Hct 35.1 L (36-46) % MCV 88.2 (80-100) fL MCH 29.1 (26-34) PG MCHC 33.0 (30-36) % RDW 18.3 H (11.6-14.8) % Plt Count 225 (150-400) X10^3/uL Neut % (Auto) 66.3 (50-75) % Lymph % (Auto) 21.0 L (25-40) % [place] % (Auto) 9.8 (3-14) % Eos % (Auto) 2.2 (2-4) % Baso % (Auto) 0.7 (0-2) % Neut # (Auto) 5200 (0188-8813) /uL Lymph # (Auto) 1700 (5123-5508) /uL [place] # (Auto) 800 (0-900) /uL Eos # (Auto) 200 (0-450) /uL Baso # (Auto) 100 (0-100) /uL Sodium 137 (137-145) mmol/L Potassium 3.5 (3.4-5.1) mmol/L Chloride 103 (98-107) mmol/L Carbon Dioxide 27 (22-32) mmol/L BUN 13 (7-17) mg/dL Creatinine 0.82 (0.52-1.04) mg/dL Estimated GFR > 60 (>60) mL/min BUN/Creatinine Ratio 15.9 (6-22) Glucose 123 H (80-110) mg/dL Calcium 8.5 (8.4-10.2) mg/dL Total Bilirubin 0.5 (0.2-1.3) mg/dL AST 195 H (14-36) IU/L ALT 156 H (<35) IU/L Alkaline Phosphatase 224 H (38-126) U/L Total Protein 7.2 (6.3-8.2) g/dL Albumin 3.4 L (3.5-5.0) g/dL Globulin 3.8 (1.7-4.1) g/dL Albumin/Globulin Ratio 0.9 L (1.0-2.8) MDM Narrative Medical decision making narrative: 78-year-old female with past medical history COPD, hyperlipidemia, CKD, hypertension, hypothyroidism, depression presents to the ED with 5 days of left ankle pain. Concern for fracture/dislocation versus abscess versus cellulitis versus hematoma versus musculoskeletal sprain/strain versus other. Will obtain CT head, CT C-spine given unclear if there was a head strike. CT head and CT C-spine without acute findings. X-ray of the ankle shows no fracture/dislocation. CT of the ankle was obtained and it shows cellulitis versus edema. Will treat with antibiotics. Recommend follow-up with PCP as soon as possible. ED return precautions were discussed with patient. Patient verbalized understanding. Medical records reviewed: Yes <Irma Patel DO - Last Filed: 05/04/23 07:41> Lab Data Labs: Lab Results 05/02/23 05/02/23 Range/Units 10:35 10:35 WBC 7.9 (4.5-11.0) X10^3/uL RBC 3.98 L (4.0-5.2) X10^6/uL Hgb 11.6 L (12.0-16.0) g/dL Hct 35.1 L (36-46) % MCV 88.2 (80-100) fL MCH 29.1 (26-34) PG MCHC 33.0 (30-36) % RDW 18.3 H (11.6-14.8) % Plt Count 225 (150-400) X10^3/uL Neut % (Auto) 66.3 (50-75) % Lymph % (Auto) 21.0 L (25-40) % [place] % (Auto) 9.8 (3-14) % Eos % (Auto) 2.2 (2-4) % Baso % (Auto) 0.7 (0-2) % Neut # (Auto) 5200 (6338-9677) /uL Lymph # (Auto) 1700 (0568-7291) /uL [place] # (Auto) 800 (0-900) /uL Eos # (Auto) 200 (0-450) /uL Baso # (Auto) 100 (0-100) /uL Sodium 137 (137-145) mmol/L Potassium 3.5 (3.4-5.1) mmol/L Chloride 103 (98-107) mmol/L Carbon Dioxide 27 (22-32) mmol/L BUN 13 (7-17) mg/dL Creatinine 0.82 (0.52-1.04) mg/dL Estimated GFR > 60 (>60) mL/min BUN/Creatinine Ratio 15.9 (6-22) Glucose 123 H (80-110) mg/dL Calcium 8.5 (8.4-10.2) mg/dL Total Bilirubin 0.5 (0.2-1.3) mg/dL AST 195 H (14-36) IU/L ALT 156 H (<35) IU/L Alkaline Phosphatase 224 H (38-126) U/L Total Protein 7.2 (6.3-8.2) g/dL Albumin 3.4 L (3.5-5.0) g/dL Globulin 3.8 (1.7-4.1) g/dL Albumin/Globulin Ratio 0.9 L (1.0-2.8) Discharge Plan Departure Patient Disposition: Home Clinical Impression: Cellulitis Instructions: DI for Cellulitis -- Adult, How to Prevent Falls Activity Restrictions/Additional Instructions: You were evaluated in the ED today for an ankle injury and pain. The CT head and CT C-spine did not show any abnormalities. We did a CT scan of the ankle which shows that you might have cellulitis which is a skin infection. You are being prescribed antibiotics. Please complete the full course of antibiotics as prescribed. Please follow-up with your PCP as soon as possible. Please return to the ED if you have worsening symptoms, fever, chills. Prescriptions: New cephalexin 500 mg capsule 500 mg PO Q8H 5 Days Qty: 15 0RF No Action metoprolol succinate 25 mg tablet extended release 24 hr 25 mg PO DAILY Qty: 90 3RF ondansetron HCl 4 mg tablet 4 mg PO Q6-8H PRN (Reason: nausea/vomiting) Qty: 30 11RF atorvastatin [Lipitor] 80 mg tablet 80 mg PO BEDTIME Qty: 90 3RF bupropion HCl 300 mg tablet extended release 24 hr 300 mg PO DAILY Qty: 90 3RF clopidogrel 75 mg tablet 75 mg PO DAILY Qty: 90 3RF levothyroxine 75 mcg tablet 75 mcg PO QAM Qty: 90 3RF lisinopril 5 mg tablet 5 mg PO BID Qty: 60 11RF (DME) Portable Oxygen Concentrator See Rx Instructions .Route .MEDSUPPLY Qty: 1 0RF Rx Instructions: 2 L by nasal canula aspirin 81 mg Tablet,Delayed Release (Dr/Ec) 81 mg PO QPM albuterol sulfate 90 mcg/actuation HFA aerosol inhaler 1 inh INHALATION Q4HR PRN (Reason: Shortness Of Breath) Advair HFA 230-21 mcg/actuation HFA aerosol inhaler 2 inh INHALATION BID nitroglycerin [Nitrostat] 0.4 mg Tablet, Sublingual 0.4 mg sublingual [id number] PRN (Reason: Chest Pain) Qty: 15 0RF promethazine 25 mg tablet 25 mg PO TID PRN (Reason: nausea and vomiting) Qty: 20 1RF promethazine 25 mg suppository 25 mg [place] Q6H PRN (Reason: nausea and vomiting) Qty: 12 0RF Referrals: Crista Mota DO [Primary Care Provider] - Stand Alone Forms: Patient Portal/API <Irma Patel DO - Last Filed: 05/04/23 07:41> Cosign ED Attending Marceloature Attestation: I was immediately available in the department for consultation. Documentation has been reviewed.
--- NOTE | 2023-05-02 11:39 | DI.CT.S_ITS ---
PROCEDURE: CT LE LT W CON INDICATIONS: ?abscess/cellulitis/hematoma TECHNIQUE: After the administration of intravenous contrast, 3 mm axial sections acquired of the left ankle , with coronal and sagittal reformats. COMPARISON: [facility], CR, XR ANKLE LT MIN 3V, 05/02/2023, 9:51. FINDINGS: Image quality: Excellent. Bones: ORIF of the medial and lateral malleoli. Transverse distal tibial screw. Chronic appearing degenerative lucencies within the lateral aspect of the distal tibia. No definite osseous erosive abnormality to indicate osteomyelitis. Soft tissues: No fluid collection. There is moderate subcutaneous fat stranding laterally within the forefoot, midfoot, and hindfoot, as well as the distal calf. IMPRESSION: 1. Postsurgical sequelae. 2. No definite osteomyelitis. Bone scan may be helpful for further assessment. 3. Subcutaneous edema versus cellulitis laterally. Dictated by: Linda Tillman M.D. on 05/02/2023 at 12:12 Approved by: Linda Tillman M.D. on 05/02/2023 at 12:15
[2023-05-02 12:39] VITALS: BP 150/70; PULSE 69; O2SAT 96
== END 2023-05-02 12:40 | disposition home or self-care (01) ==
PROVIDERS: Emergency Medicine; Emergency Provider Student in an Organized Health Care Education/Training Program; PCP Family Medicine
DX: L03.116 Cellulitis of left lower limb (principal); S09.90XA Unspecified injury of head, initial encounter; W10.9XXA Fall (on) (from) unspecified stairs and steps, initial encounter; Z79.01 Long term (current) use of anticoagulants
CPT/HCPCS: 36415; 70450; 72125; 73610; 73701; 80053; 85025; 99283; 99284

== ENCOUNTER 2023-05-04 13:07 | Emergency (ER) | payer MEDICARE, SELFPAY ==
[2023-03-02 10:28] VITALS: BMI 21.1
[2023-05-04 13:27] VITALS: BP 167/69; PULSE 73; RESP 16; TEMP 36.7; O2SAT 98; BMI 18.8
== END 2023-05-04 15:00 | disposition left against medical advice (07) ==
PROVIDERS: Emergency Provider Emergency Medicine; PCP Family Medicine
DX: S90.912A Unspecified superficial injury of left ankle, initial encounter (principal)
CPT/HCPCS: 99281

== ENCOUNTER → 2023-05-11 09:46 | Outpatient (CLI) | payer MEDICARE, SELFPAY ==
[2023-03-02 10:28] VITALS: BMI 21.1
--- NOTE | 2023-05-18 10:08 | PM.PFT.1 ---
Pulmonary Function Test Referral & Results Date Patient Seen: 05/11/23 Results: The spirometry demonstrates an FVC of 3.20 L which is 101% of predicted. The FEV1 was measured at 2.14 L which is 90% of predicted. The FEV1/FVC ratio was 67 which is 89% of predicted. Interpretation: This study, which was done as forced spirometry only, demonstrates probably normal forced spirometry.
== END ==
PROVIDERS: PCP Family Medicine; Referring Provider Nurse Practitioner Family; Visit Provider Nurse Practitioner Family
DX: J44.9 Chronic obstructive pulmonary disease, unspecified (principal); Z87.891 Personal history of nicotine dependence
CPT/HCPCS: 94010

== ENCOUNTER 2023-10-03 11:16 | Emergency (ER) | payer MEDICARE, SELFPAY ==
[2023-03-02 10:28] VITALS: BMI 21.1
[2023-10-03] VITALS (8 sets, daily range): BP systolic 133–164; BP diastolic 59–81; PULSE 61–89; RESP 14–24; TEMP 36.8; O2SAT 92–100; BMI 19.7
--- NOTE | 2023-10-03 11:46 | DI.RAD.S_ITS ---
PROCEDURE: XR CHEST 1V INDICATIONS: chest pain TECHNIQUE: One view of the chest was acquired. COMPARISON: [facility], CR, XR CHEST 1V, 02/24/2023, 12:08. FINDINGS: Surgical changes and devices: None. Lungs and pleura: Lungs are clear. No pleural effusions or pneumothorax. Mediastinum: Mediastinal contours appear normal. Heart size is normal. Bones and chest wall: No suspicious bony lesions. Overlying soft tissues appear unremarkable. Rightward curvature of the thoracic spine. IMPRESSION: No acute cardiopulmonary abnormality is seen. Dictated by: David Hall M.D. on 10/03/2023 at 11:39 Approved by: David Hall M.D. on 10/03/2023 at 11:42
[2023-10-03 11:59] LABS: Add Manual Diff / Slide Review NO; Basophils Absolute Auto 0 /uL (0-100); Basophils Percent Auto 0.5 % (0-2); Eosinophils Absolute Auto 100 /uL (0-450); Eosinophils Percent Auto 0.7 % (2-4); Hematocrit 39.5 % (36-46); Hemoglobin 13.3 g/dL (12.0-16.0); Lymphocytes Absolute Auto 3000 /uL (1100-4500); Lymphocytes Percent Auto 39.5 % (25-40); Mean Corpuscular HGB Conc 33.8 % (30-36); Mean Corpuscular Hemoglobin 30.1 PG (26-34); Mean Corpuscular Volume 88.9 fL (80-100); Monocytes Absolute Auto 900 /uL (0-900); Monocytes Percent Auto 12.3 % (3-14); Neutrophils Absolute Auto 3600 /uL (1500-7000); Platelet Count 341 X10^3/uL (150-400); Red Blood Cell Count 4.44 X10^6/uL (4.0-5.2); Red Cell Distribution Width 13.8 % (11.6-14.8); White Blood Cell Count 7.6 X10^3/uL (4.5-11.0)
[2023-10-03 12:06] LABS: Prothrombin Time 11.7 SECONDS (9.4-12.5)
[2023-10-03] MEDS: METOCLOPRAMIDE 10 MG/2 ML INJ IV (12:06)
[2023-10-03] MEDS: diphenhydrAMINE 50 MG/ML VIAL IV (12:06)
[2023-10-03 12:08] LABS: PTT Partial Thromboplastin Tim 28 SECONDS (25.1-36.5)
[2023-10-03 12:10] LABS: Alanine Aminotransferase 137 IU/L (<35); Albumin 4.6 g/dL (3.5-5.0); Alkaline Phosphatase 170 U/L (38-126); Aspartate Aminotransferase 183 IU/L (14-36); BUN Creatinine Ratio 22.5 (6-22); Bilirubin Total 0.7 mg/dL (0.2-1.3); Blood Urea Nitrogen 23 mg/dL (7-17); Calcium 10.4 mg/dL (8.4-10.2); Carbon Dioxide 28 mmol/L (22-32); Chloride 99 mmol/L (98-107); Creatine Kinase 70 U/L (30-135); Estimated Glomerular Filt Rate 57 mL/min (>60); Globulin 4.7 g/dL (1.7-4.1); Glucose 100 mg/dL (80-110); HEMOLYSIS < 15 (0-50); Lipase 361 U/L (23-300); Potassium 4.4 mmol/L (3.4-5.1); Sodium 135 mmol/L (137-145); Total Protein 9.3 g/dL (6.3-8.2)
[2023-10-03] MEDS: SODIUM CHLORIDE 0.9% 1,000 ML 1000 ML IV (12:16)
--- NOTE | 2023-10-03 12:18 | ED.HA ---
HPI - Headache General Chief Complaint: Headache Stated Complaint: VOMITING AND HEADACHE T-4 Time Seen by Provider: 10/03/23 11:51 Mode of arrival: Ambulatory History of Present Illness HPI Narrative: 78-year-old female with history of migraine headaches, ampulla of Vater mass, COPD not on home oxygen presents by private vehicle from home for 4 days of headache and vomiting. Patient states that she is tried to take her home nausea medications without improvement. Denies abdominal pain. Related Data Home Medications Medication Instructions Recorded Confirmed aspirin 81 mg tablet,delayed 81 mg PO QPM 01/28/19 07/18/23 release albuterol sulfate 90 mcg/actuation 1 inh inhalation Q4HR PRN 02/24/23 07/18/23 aerosol inhaler Shortness Of Breath fluticasone propionate 230 2 inh inhalation BID 02/24/23 07/18/23 mcg-salmeterol 21 mcg/actuation HFA inhaler (Advair HFA) Previous Rx's Medication Instructions Recorded nitroglycerin 0.4 mg sublingual 0.4 mg sublingual [id number] PRN 02/26/23 tablet (Nitrostat) Chest Pain #15 tabs promethazine 25 mg rectal 25 mg ND Q6H PRN nausea and 03/15/23 suppository vomiting #12 ea promethazine 25 mg tablet 25 mg PO TID PRN nausea and 03/15/23 vomiting #20 tabs metoprolol succinate 25 mg 25 mg PO DAILY #90 tabs 03/28/23 tablet,extended release 24 hr ondansetron HCl 4 mg tablet 4 mg PO Q6-8H PRN nausea/vomiting 03/28/23 #30 tabs Portable Oxygen Concentrator #1 ea 04/10/23 atorvastatin 80 mg tablet (Lipitor) 80 mg PO BEDTIME cholesterol #90 04/10/23 tabs bupropion HCl 300 mg 24 hr tablet, 300 mg PO DAILY #90 tabs 04/10/23 extended release clopidogrel 75 mg tablet 75 mg PO DAILY #90 tabs 04/10/23 levothyroxine 75 mcg tablet 75 mcg PO QAM #90 tabs 04/10/23 lisinopril 5 mg tablet 5 mg PO BID #60 tabs 04/10/23 promethazine 25 mg rectal 25 mg ND Q6H PRN nausea and 10/03/23 suppository vomiting #12 ea promethazine 25 mg tablet 25 mg PO Q6H PRN nausea and 10/03/23 vomiting #14 tabs Allergies Allergy/AdvReac Type Severity Reaction Status Date / Time No Known Drug Allergies Allergy Verified 07/18/23 14:15 Review of Systems Review of Systems Narrative: NEGATIVE EXCEPT NOTED ABOVE Patient History Medical History (Updated 10/03/23 @ 14:16 by Cris Mayer MD) 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 Mother Respiratory disease Cerebral aneurysm Brother In good health Social History household members: none Smoking Status: Former smoker alcohol intake: never substance use type: does not use Smoking Status: Former smoker alcohol intake frequency: holidays/special occasions only Substance Use Type: does not use Exam Initial Vital Signs Initial Vital Signs: Vital Signs Temperature 98.2 F 10/03/23 11:36 Pulse Rate 85 10/03/23 11:36 Respiratory Rate 18 10/03/23 11:36 Blood Pressure 135/59 L 10/03/23 11:36 Pulse Oximetry 97 10/03/23 11:36 Oxygen Delivery Method Room Air 10/03/23 11:36 Const: Awake, alert, uncomfortable appearing, nontoxic Eyes: PERRL, EOMI, conjunctiva normal ENT: Atraumatic, dentition normal, mucous membranes moist Cardiac: regular rate, regular rhythm RESP: unlabored, clear bilaterally, no wheezing GI: Atraumatic, soft, nontender, nondistended, no rebound, no guarding MSK: Atraumatic, full range of motion, pulses equal Skin: Warm, Dry, intact, no rashes Neuro: AO x3, CN II-XII grossly intact, moves all extremities Psych: affect normal, mood normal, not suicidal, not homicidal Course Course Course Narrative: Ill-appearing but nontoxic patient presenting for headache with nausea and vomiting. She has been seen in the past for nausea and vomiting and has an ampulla of Vater mass, she states she is still being evaluated by GI for this issue. Abdomen is soft, no reproducible tenderness to palpation, do not see utility in repeating abdomen pelvis scan. Due to patient's prolonged headache we will repeat CT scan to ensure there is no acute intracranial pathology. Orders Ordered: Discontinued Medications Diphenhydramine HCl (Diphenhydramine 50 Mg/Ml Vial) 50 mg IV NOW ONE Stop: 10/03/23 11:58 Last Admin: 10/03/23 12:06 Dose: 50 mg Documented By: ORION Sodium Chloride (Normal Saline 0.9%) 1,000 mls @ 1,000 mls/hr IV BOLUS ONE Stop: 10/03/23 13:12 Last Infusion: 10/03/23 13:16 Dose: Infused Documented By: Admin: 10/03/23 12:16 Dose: 1,000 mls/hr Documented By: ORION Metoclopramide HCl (Metoclopramide 10 Mg/2 Ml Inj) 10 mg IV NOW ONE Stop: 10/03/23 11:58 Last Admin: 10/03/23 12:06 Dose: 10 mg Documented By: ORION Reevaluation(s) Reevaluation #1: Laboratory work is reviewed, patient does have elevated liver enzymes, however these are relatively unchanged compared to last results. Creatinine normal. CT of the head is negative for acute findings. Patient has received migraine cocktail and IV fluids. She reports feeling much better and will try p.o.. Reevaluation #2: Patient passed p.o. challenge. Sent Phenergan p.o. and rectal to pharmacy. Strict PCP follow up advised. ED return precautions discussed at bedside. Patient expressed understanding of the plan and is in agreement at this time. All questions answered at the time of discharge. Vital Signs Vital signs: Vital Signs - 8 hr 10/03/23 11:36 10/03/23 11:50 10/03/23 12:00 Temperature 98.2 F Pulse Rate 85 77 61 Respiratory Rate 18 Blood Pressure 135/59 L Pulse Oximetry 97 100 Oxygen Delivery Method Room Air 10/03/23 12:08 10/03/23 12:08 10/03/23 12:30 Temperature Pulse Rate 75 78 Respiratory Rate 14 24 Blood Pressure 164/81 H Pulse Oximetry 95 93 Oxygen Delivery Method 10/03/23 13:00 10/03/23 13:30 Temperature Pulse Rate 76 78 Respiratory Rate 16 20 Blood Pressure Pulse Oximetry 94 92 Oxygen Delivery Method MDM - Headache Lab Data 10/03/23 11:51 10/03/23 11:51 Labs: Lab Results 10/03/23 Range/Units 11:51 WBC 7.6 (4.5-11.0) X10^3/uL RBC 4.44 (4.0-5.2) X10^6/uL Hgb 13.3 (12.0-16.0) g/dL Hct 39.5 (36-46) % MCV 88.9 (80-100) fL MCH 30.1 (26-34) PG MCHC 33.8 (30-36) % RDW 13.8 (11.6-14.8) % Plt Count 341 (150-400) X10^3/uL Neut % (Auto) 47.0 L (50-75) % Lymph % (Auto) 39.5 (25-40) % [facility] % (Auto) 12.3 (3-14) % Eos % (Auto) 0.7 L (2-4) % Baso % (Auto) 0.5 (0-2) % Neut # (Auto) 3600 (3392-3360) /uL Lymph # (Auto) 3000 (9205-9573) /uL [facility] # (Auto) 900 (0-900) /uL Eos # (Auto) 100 (0-450) /uL Baso # (Auto) 0 (0-100) /uL PT 11.7 (9.4-12.5) SECONDS INR 1.0 (0.9-1.3) APTT 28 (25.1-36.5) SECONDS Sodium 135 L (137-145) mmol/L Potassium 4.4 (3.4-5.1) mmol/L Chloride 99 (98-107) mmol/L Carbon Dioxide 28 (22-32) mmol/L BUN 23 H (7-17) mg/dL Creatinine 1.02 (0.52-1.04) mg/dL Estimated GFR 57 L (>60) mL/min BUN/Creatinine Ratio 22.5 H (6-22) Glucose 100 (80-110) mg/dL Calcium 10.4 H (8.4-10.2) mg/dL Magnesium 2.0 (1.6-2.3) mg/dL Total Bilirubin 0.7 (0.2-1.3) mg/dL AST 183 H (14-36) IU/L ALT 137 H (<35) IU/L Alkaline Phosphatase 170 H (38-126) U/L Total Creatine Kinase 70 (30-135) U/L Troponin I < 0.012 (0.01-0.034) ng/mL Total Protein 9.3 H (6.3-8.2) g/dL Albumin 4.6 (3.5-5.0) g/dL Globulin 4.7 H (1.7-4.1) g/dL Albumin/Globulin Ratio 1.0 (1.0-2.8) Lipase 361 H (23-300) U/L Discharge Plan Departure Patient Disposition: Home Clinical Impression: Headache, Nausea & vomiting Instructions: DI for Headache, Nausea and Vomiting-Adult Prescriptions: New promethazine 25 mg tablet 25 mg PO Q6H PRN (Reason: nausea and vomiting) Qty: 14 0RF promethazine 25 mg suppository 25 mg ND Q6H PRN (Reason: nausea and vomiting) Qty: 12 0RF No Action metoprolol succinate 25 mg tablet extended release 24 hr 25 mg PO DAILY Qty: 90 3RF ondansetron HCl 4 mg tablet 4 mg PO Q6-8H PRN (Reason: nausea/vomiting) Qty: 30 11RF atorvastatin [Lipitor] 80 mg tablet 80 mg PO BEDTIME Qty: 90 3RF bupropion HCl 300 mg tablet extended release 24 hr 300 mg PO DAILY Qty: 90 3RF clopidogrel 75 mg tablet 75 mg PO DAILY Qty: 90 3RF levothyroxine 75 mcg tablet 75 mcg PO QAM Qty: 90 3RF lisinopril 5 mg tablet 5 mg PO BID Qty: 60 11RF (DME) Portable Oxygen Concentrator See Rx Instructions .Route .MEDSUPPLY Qty: 1 0RF Rx Instructions: 2 L by nasal canula aspirin 81 mg Tablet,Delayed Release (Dr/Ec) 81 mg PO QPM albuterol sulfate 90 mcg/actuation HFA aerosol inhaler 1 inh INHALATION Q4HR PRN (Reason: Shortness Of Breath) Advair HFA 230-21 mcg/actuation HFA aerosol inhaler 2 inh INHALATION BID nitroglycerin [Nitrostat] 0.4 mg Tablet, Sublingual 0.4 mg sublingual [id number] PRN (Reason: Chest Pain) Qty: 15 0RF promethazine 25 mg tablet 25 mg PO TID PRN (Reason: nausea and vomiting) Qty: 20 1RF promethazine 25 mg suppository 25 mg ND Q6H PRN (Reason: nausea and vomiting) Qty: 12 0RF Referrals: Crista Mota DO [Primary Care Provider] - Stand Alone Forms: Patient Portal/API
--- NOTE | 2023-10-03 12:20 | DI.CT.S_ITS ---
PROCEDURE: CT HEAD/BRAIN WO CON INDICATIONS: ARELLANO/N/V X4 DAYS, new pattern ARELLANO TECHNIQUE: Noncontrast 4.5 mm thick angled axial sections acquired from the foramen magnum to the vertex, with coronal and sagittal reformats. For radiation dose reduction, the following was used: automated exposure control, adjustment of mA and/or kV according to patient size. COMPARISON: [facility], CT, CT HEAD/BRAIN WO CON, 05/02/2023, 10:02. [facility], CT, CT HEAD/BRAIN WO CON, 02/24/2023, 12:14. FINDINGS: Image quality: Excellent. CSF spaces: Basal cisterns are patent. No extra-axial fluid collections. The ventricles are symmetric in size and shape. Embolization coil and vascular stent again noted in the region of the basilar tip with associated streak artifact. Brain: No acute intracranial hemorrhage. Area of chronic encephalomalacia in the left parieto-occipital region does not appear significantly changed. Possible small area of chronic encephalomalacia in the right cerebellar hemisphere versus prominent sulcus, unchanged. There is cerebral volume loss for age, with resultant ventricular and sulcal prominence. There are periventricular and deep white matter chronic small vessel ischemic changes. There is intracranial internal carotid artery atherosclerosis. Skull and face: Calvarium and visualized facial bones appear intact, without suspicious lesions. Sinuses: Visualized sinuses and mastoids are clear. IMPRESSION: No acute intracranial pathology. Approved by: Tristan Dominguez M.D. on 10/03/2023 at 12:47
[2023-10-03 12:21] LABS: Troponin I < 0.012 ng/mL (0.01-0.034)
[2023-12-29 13:36] LABS: Fecal Immunochemical Test Negative (Negative)
== END 2023-10-03 14:32 | disposition home or self-care (01) ==
PROVIDERS: Family Medicine; Emergency Provider Emergency Medicine; PCP Family Medicine
DX: R51.9 Headache, unspecified (principal); R11.2 Nausea with vomiting, unspecified; J44.9 Chronic obstructive pulmonary disease, unspecified; I12.9 Hypertensive chronic kidney disease with stage 1 through stage 4 chronic kidney disease, or unspecified chronic kidney disease; N18.30 Chronic kidney disease, stage 3 unspecified
CPT/HCPCS: 36415; 70450; 71045; 80053; 82274; 82550; 83690; 83735; 84484; 85025; 85610; 85730; 93005; 96361; 96374; 96375; 99284; J1200; J2765

== ENCOUNTER → 2024-01-29 09:42 | Outpatient (CLI) | payer MEDICARE, SELFPAY ==
[2024-01-15 08:36] VITALS: BMI 21.1
== END ==
PROVIDERS: PCP Family Medicine; Referring Provider Internal Medicine Critical Care Medicine; Visit Provider Internal Medicine Critical Care Medicine
DX: R06.02 Shortness of breath (principal); Z87.891 Personal history of nicotine dependence; J98.8 Other specified respiratory disorders
CPT/HCPCS: 94060; 94726; 94729

== ENCOUNTER → 2024-04-11 10:48 | Outpatient (CLI) | payer MEDICARE, SELFPAY ==
[2024-01-15 08:36] VITALS: BMI 21.1
== END ==
PROVIDERS: PCP Family Medicine; Visit Provider Nurse Practitioner Family
DX: S61.203A Unspecified open wound of left middle finger without damage to nail, initial encounter (principal)
CPT/HCPCS: 87070; 87075; 87186; 87205

== ENCOUNTER 2024-06-29 08:38 | Emergency (ER) | payer MEDICARE, SELFPAY ==
[2024-01-15 08:36] VITALS: BMI 21.1
[2024-06-29] VITALS (12 sets, daily range): BP systolic 94–154; BP diastolic 61–78; PULSE 72–81; RESP 16; TEMP 36.6; O2SAT 95–99
--- NOTE | 2024-06-29 08:54 | ED_ITS ---
HPI - General Adult General Chief complaint: Extremity Problem,Nontraumatic Stated complaint: hip pain Time Seen by Provider: 06/29/24 08:42 History of Present Illness HPI narrative: 79-year-old woman with a history COPD at 1 point oxygen-dependent no longer so, chronic kidney disease, hypertension, depression history of internal carotid artery occlusion, cerebral aneurysm without rupture, coronary artery disease she remains on clopidogrel at this time presents complaining of right flank/low back/right lower quadrant pain. It has been present for 24 hours she is having difficulty finding a comfortable position in which to be in. She notes she does have some dysuria which isn't unusual for her but no obvious hematuria. No fevers cough, palpitations, chills, nausea, vomiting, dyspnea. She notes that she has some neck muscle tenderness she awoke with this morning but no headaches. No noticed skin changes or abnormalities appreciated Related Data Home Medications Medication Instructions Recorded Confirmed aspirin 81 mg tablet,delayed 81 mg PO QPM 01/28/19 05/16/24 release albuterol sulfate 90 mcg/actuation 1 inh inhalation Q4HR PRN 02/24/23 05/16/24 aerosol inhaler Shortness Of Breath Previous Rx's Medication Instructions Recorded Portable Oxygen Concentrator #1 ea 04/10/23 promethazine 25 mg rectal 25 mg MN Q6H PRN nausea and 10/06/23 suppository vomiting #12 ea bupropion HCl 150 mg 24 hr tablet, 150 mg PO QAM #90 tabs 02/01/24 extended release (Wellbutrin XL) metoprolol succinate 25 mg 25 mg PO DAILY #90 tabs 04/02/24 tablet,extended release 24 hr clopidogrel 75 mg tablet 75 mg PO DAILY #90 tabs 05/03/24 mupirocin calcium 2 % topical cream 1 applic topical BID #30 grams 05/16/24 triamcinolone acetonide 0.5 % 1 applic topical BID #15 grams 05/16/24 topical cream Allergies Allergy/AdvReac Type Severity Reaction Status Date / Time ampicillin Allergy Unknown Verified 05/16/24 10:35 Review of Systems Review of Systems Narrative: Pertinent positive and negative findings as per HPI Patient History Medical History Abnormal ankle brachial index (ERASTO) ICAO (internal carotid artery occlusion) Poor appetite Constipation GERD (gastroesophageal reflux disease) Open ankle wound 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 Mother Respiratory disease Cerebral aneurysm Brother In good health Social History household members: none Smoking Status: Former smoker alcohol intake: never substance use type: does not use Smoking Status: Former smoker alcohol intake frequency: holidays/special occasions only Substance Use Type: does not use Exam Initial Vital Signs Initial Vital Signs: Vital Signs Pulse Rate 81 06/29/24 08:48 Pulse Oximetry 98 06/29/24 08:48 General: Healthy appearing, appears uncomfortable but Able to give a complete and coherent history. Well-nourished well-developed, she is sitting on the edge of the bed with her right leg extended HEENT: Moist mucous membranes, normal sclera with reactive pupils, Respiratory: Lungs are clear to auscultation, no wheezing no rales no rhonchi. Full and symmetrical air movement Cardiac: Regular rate and rhythm no murmurs no bruits Abdomen: Soft, no tenderness in the right lower quadrant to palpation. Some minor right flank pain. She has no musculoskeletal spasm along the lumbar spine or into the buttocks. Skin: Warm and dry, no rashes Neurologic: Grossly neurologically intact with no obvious asymmetries or abnormalities Extremities: No trauma, well perfused Psych: Cooperative, appropriate insight and affect Course Orders Ordered: ED Orders 06/29/24 09:10 CT abdomen pelvis w con Stat Urinalysis and Microscopic Stat 06/29/24 09:29 Complete Blood Count AUTO DIFF Stat Comprehensive Metabolic Panel Stat Hydromorphone HCl (Hydromorphone 0.5 Mg Inj) 0.5 mg IV Q15MIN PRN PRN Reason: Pain, Last Admin: 06/29/24 09:44 Dose: 0.5 mg Documented By: FLORENTINO Discontinued Medications Sodium Chloride (Normal Saline 0.9%) 1,000 mls @ 1,000 mls/hr IV BOLUS ONE Stop: 06/29/24 10:08 Last Infusion: 06/29/24 10:28 Dose: 1,000 mls/hr Documented By: Infusion: 06/29/24 10:15 Dose: 0 mls/hr Documented By: Admin: 06/29/24 09:43 Dose: 1,000 mls/hr Documented By: FLORENTINO Ketorolac Tromethamine (Ketorolac 30 Mg/Ml Vial) 15 mg IV NOW ONE Stop: 06/29/24 09:10 Last Admin: 06/29/24 09:43 Dose: 15 mg Documented By: FLORENTINO Ondansetron HCl (Ondansetron 4 Mg/2 Ml Inj) 4 mg IV NOW ONE Stop: 06/29/24 09:10 Last Admin: 06/29/24 09:44 Dose: 4 mg Documented By: FLORENTINO Vital Signs Vital signs: Vital Signs - 8 hr 06/29/24 08:48 06/29/24 08:49 06/29/24 08:49 Temperature Pulse Rate 81 77 Respiratory Rate Blood Pressure 140/67 Pulse Oximetry 98 96 Oxygen Delivery Method 06/29/24 08:55 06/29/24 09:46 06/29/24 09:55 Temperature 97.8 F Pulse Rate 79 73 Respiratory Rate 16 Blood Pressure 140/67 150/72 H Pulse Oximetry 97 99 Oxygen Delivery Method Room Air 06/29/24 09:55 06/29/24 10:00 06/29/24 10:01 Temperature Pulse Rate 73 73 72 Respiratory Rate Blood Pressure Pulse Oximetry 99 97 97 Oxygen Delivery Method 06/29/24 10:01 Temperature Pulse Rate Respiratory Rate Blood Pressure 94/61 Pulse Oximetry Oxygen Delivery Method Medical Decision Making Lab Data 06/29/24 09:29 06/29/24 09:29 Labs: Lab Results 06/29/24 Range/Units 09:29 WBC 9.1 (4.5-11.0) X10^3/uL RBC 4.22 (4.0-5.2) X10^6/uL Hgb 12.6 (12.0-16.0) g/dL Hct 37.4 (36-46) % MCV 88.6 (80-100) fL MCH 29.8 (26-34) PG MCHC 33.6 (30-36) % RDW 15.9 H (11.6-14.8) % Plt Count 241 (150-400) X10^3/uL Neut % (Auto) 65.5 (50-75) % Lymph % (Auto) 19.3 L (25-40) % [place] % (Auto) 12.7 (3-14) % Eos % (Auto) 2.0 (2-4) % Baso % (Auto) 0.5 (0-2) % Neut # (Auto) 6000 (5323-1434) /uL Lymph # (Auto) 1800 (9833-7523) /uL [place] # (Auto) 1200 H (0-900) /uL Eos # (Auto) 200 (0-450) /uL Baso # (Auto) 0 (0-100) /uL Sodium 137 (137-145) mmol/L Potassium 3.9 (3.4-5.1) mmol/L Chloride 103 (98-107) mmol/L Carbon Dioxide 25 (22-32) mmol/L BUN 21 H (7-17) mg/dL Creatinine 1.06 H (0.52-1.04) mg/dL Estimated GFR 54 L (>60) mL/min BUN/Creatinine Ratio 19.8 (6-22) Glucose 105 (80-110) mg/dL Calcium 9.5 (8.4-10.2) mg/dL Total Bilirubin 0.6 (0.2-1.3) mg/dL AST 35 (14-36) IU/L ALT 22 (<35) IU/L Alkaline Phosphatase 102 (38-126) U/L Total Protein 7.9 (6.3-8.2) g/dL Albumin 4.1 (3.5-5.0) g/dL Globulin 3.8 (1.7-4.1) g/dL Albumin/Globulin Ratio 1.1 (1.0-2.8) Imaging Data CT scan - abdomen/pelvis: Radiologist's Impression: PROCEDURE: CT ABDOMEN PELVIS W CON INDICATIONS: Right lower quadrant/flank/back pain TECHNIQUE: After the administration of intravenous contrast, axial sections acquired from the lung bases to the pubic symphysis. Coronal and sagittal reformats were performed. For radiation dose reduction, the following was used: automated exposure control, adjustment of mA and/or kV according to patient size. COMPARISON: [facility], CT, CT ABDOMEN PELVIS W CON, 03/15/2023, 14:03. FINDINGS: Image quality: Diagnostic. Lower Chest: No significant findings. ABDOMEN: Liver: No solid mass. Gallbladder: No radiopaque gallstones or wall thickening. Biliary ducts: No biliary dilation. Pancreas: No ductal dilation. Spleen: Size is within normal limits. A few calcified granulomas can be seen within the spleen. Adrenal Glands: No adrenal nodules. Kidneys and Ureters: No hydronephrosis. No solid mass. No complex renal cystic lesion which requires follow up. Stomach and Bowel: In this patient with this given history, scrutiny is given to the appendix. No appendix (either normal or abnormal) is identified on this study. No focal right lower quadrant inflammatory changes are seen. The cecum is low lying. There is a moderate volume of stool seen within the colon. No dilated loops of small bowel are seen. Peritoneum: No abnormal intraperitoneal fluid. No free air. Ventral Wall: No significant ventral hernia. Abdominal Nodes: No retroperitoneal or mesenteric adenopathy by size criteria. Vessels: Aorta and inferior vena cava are normal in size. Atherosclerotic calcification is noted. PELVIS: Pelvic Organs: This patient is status post hysterectomy. No adnexal masses are seen. Bilateral pelvic clips are seen. Bladder: No bladder wall thickening, accounting for underdistention. Pelvic Nodes: No enlarged lymph nodes. Miscellaneous: No inguinal hernias are seen. Bones: No aggressive osseous abnormality. Minimal L4-L5 anterolisthesis is seen, secondary to facet disease. No associated pars defects are seen. Focal L5-S1 degenerative change is seen. Milder degenerative changes are seen elsewhere. IMPRESSION: No appendix (either normal or abnormal) is identified on this study. Negative for obstructive uropathy. There is a moderate amount of stool seen within the colon. Please correlate with an underlying history of constipation. Additional findings: Prior granulomatous exposure. Minimal L4-L5 anterolisthesis, without pars defects Focal L5-S1 degenerative change Hysterectomy Dictated by: Kaiser Beach M.D. on 06/29/2024 at 9:40 MDM Narrative Medical decision making narrative: CC: Right flank/back pain Complicating co-morbidities: History of COPD coronary artery disease, internal carotid occlusion Data collected from: patient , Medical records reviewed: Primary care notes reviewed Differential considered: Obstructive uropathy, kidney stone, pyelonephritis, appendicitis, musculoskeletal pain, follow ins and is considered. I do not believe this is hip pain Exam documented above, pertinent findings include: Patient appears moderately uncomfortable most comfortable slightly leaning backward with her right leg extended. Tender in the right flank with no rebound or guarding in the abdomen. No skin changes appreciated Lab Test results independently reviewed as above. Pertinent findings: CBC is unremarkable Metabolic panel is unremarkable Imaging studies independently reviewed: CT scan shows no dramatic findings. There is large amount of stool with quite a bit in the right lower quadrant which does correlate with her location of pain Discussion: Findings reviewed with the patient. Normal blood work, CT scan results reviewed. She does note that she has had her appendix previously removed. We discussed the large volume of stool throughout the right side of the colon. She states she has been using MiraLax. Her suggested using laxative to see if she can get everything moving which I think is a good idea. They do have available options at home. At this point there was no indication for additional imaging, blood work or hospitalization. Questions are answered and they are safe for home Discharge Plan Departure Patient Disposition: Home Clinical Impression: Abdominal pain Qualifiers: Abdominal location: right lower quadrant Qualified Code(s): R10.31 - Right lower quadrant pain Constipation Qualifiers: Constipation type: unspecified constipation type Qualified Code(s): K59.00 - Constipation, unspecified Instructions: DI for Abdominal Pain-Adult, DI for Constipation Activity Restrictions/Additional Instructions: Thank you for coming in today Your workup was very reassuring. I am not seeing any signs of infection, bladder infection, dramatic electrolyte abnormalities. Your CT scan suggest that you have quite a bit of solid stool over in the right side of your colon which is where you are having the area of discomfort. I am going to suggest you try a dose of either Ex-Lax or milk of magnesia as a laxative to try to get the stool on the right side moving. After that continuing to use a scoop of MiraLax daily will help prevent you from becoming constipated and having to deal with discomfort in the 1st place. If you find that you are getting worse or develop any new symptoms, please feel free to return to the emergency department for further evaluation. Prescriptions: No Action bupropion HCl [Wellbutrin XL] 150 mg tablet extended release 24 hr 150 mg PO QAM Qty: 90 2RF mupirocin calcium 2 % cream 1 applic topical BID Qty: 30 3RF triamcinolone acetonide 0.5 % cream 1 applic topical BID Qty: 15 0RF metoprolol succinate 25 mg tablet extended release 24 hr 25 mg PO DAILY Qty: 90 2RF clopidogrel 75 mg tablet 75 mg PO DAILY Qty: 90 4RF promethazine 25 mg suppository 25 mg MN Q6H PRN (Reason: nausea and vomiting) Qty: 12 5RF (DME) Portable Oxygen Concentrator See Rx Instructions .Route .MEDSUPPLY Qty: 1 0RF Rx Instructions: 2 L by nasal canula aspirin 81 mg Tablet,Delayed Release (Dr/Ec) 81 mg PO QPM albuterol sulfate 90 mcg/actuation HFA aerosol inhaler 1 inh INHALATION Q4HR PRN (Reason: Shortness Of Breath) Referrals: Nyasia Castillo MD [Primary Care Provider] - Stand Alone Forms: Patient Portal/API
--- NOTE | 2024-06-29 09:10 | DI.CT.S_ITS ---
PROCEDURE: CT ABDOMEN PELVIS W CON INDICATIONS: Right lower quadrant/flank/back pain TECHNIQUE: After the administration of intravenous contrast, axial sections acquired from the lung bases to the pubic symphysis. Coronal and sagittal reformats were performed. For radiation dose reduction, the following was used: automated exposure control, adjustment of mA and/or kV according to patient size. COMPARISON: [facility], CT, CT ABDOMEN PELVIS W CON, 03/15/2023, 14:03. FINDINGS: Image quality: Diagnostic. Lower Chest: No significant findings. ABDOMEN: Liver: No solid mass. Gallbladder: No radiopaque gallstones or wall thickening. Biliary ducts: No biliary dilation. Pancreas: No ductal dilation. Spleen: Size is within normal limits. A few calcified granulomas can be seen within the spleen. Adrenal Glands: No adrenal nodules. Kidneys and Ureters: No hydronephrosis. No solid mass. No complex renal cystic lesion which requires follow up. Stomach and Bowel: In this patient with this given history, scrutiny is given to the appendix. No appendix (either normal or abnormal) is identified on this study. No focal right lower quadrant inflammatory changes are seen. The cecum is low lying. There is a moderate volume of stool seen within the colon. No dilated loops of small bowel are seen. Peritoneum: No abnormal intraperitoneal fluid. No free air. Ventral Wall: No significant ventral hernia. Abdominal Nodes: No retroperitoneal or mesenteric adenopathy by size criteria. Vessels: Aorta and inferior vena cava are normal in size. Atherosclerotic calcification is noted. PELVIS: Pelvic Organs: This patient is status post hysterectomy. No adnexal masses are seen. Bilateral pelvic clips are seen. Bladder: No bladder wall thickening, accounting for underdistention. Pelvic Nodes: No enlarged lymph nodes. Miscellaneous: No inguinal hernias are seen. Bones: No aggressive osseous abnormality. Minimal L4-L5 anterolisthesis is seen, secondary to facet disease. No associated pars defects are seen. Focal L5-S1 degenerative change is seen. Milder degenerative changes are seen elsewhere. IMPRESSION: No appendix (either normal or abnormal) is identified on this study. Negative for obstructive uropathy. There is a moderate amount of stool seen within the colon. Please correlate with an underlying history of constipation. Additional findings: Prior granulomatous exposure. Minimal L4-L5 anterolisthesis, without pars defects Focal L5-S1 degenerative change Hysterectomy Dictated by: Kaiser Beach M.D. on 06/29/2024 at 9:40 Approved by: Kaiser Beach M.D. on 06/29/2024 at 9:43
[2024-06-29 09:36] LABS: Add Manual Diff / Slide Review NO; Basophils Absolute Auto 0 /uL (0-100); Basophils Percent Auto 0.5 % (0-2); Eosinophils Absolute Auto 200 /uL (0-450); Hematocrit 37.4 % (36-46); Hemoglobin 12.6 g/dL (12.0-16.0); Lymphocytes Absolute Auto 1800 /uL (1100-4500); Lymphocytes Percent Auto 19.3 % (25-40); Mean Corpuscular HGB Conc 33.6 % (30-36); Mean Corpuscular Hemoglobin 29.8 PG (26-34); Mean Corpuscular Volume 88.6 fL (80-100); Monocytes Absolute Auto 1200 /uL (0-900); Monocytes Percent Auto 12.7 % (3-14); Neutrophils Absolute Auto 6000 /uL (1500-7000); Neutrophils Percent Auto 65.5 % (50-75); Platelet Count 241 X10^3/uL (150-400); Red Blood Cell Count 4.22 X10^6/uL (4.0-5.2); Red Cell Distribution Width 15.9 % (11.6-14.8); White Blood Cell Count 9.1 X10^3/uL (4.5-11.0)
[2024-06-29] MEDS: SODIUM CHLORIDE 0.9% 1,000 ML 1000 ML IV (09:43)
[2024-06-29] MEDS: KETOROLAC 30 MG/ML VIAL 15 MG IV (09:43)
[2024-06-29] MEDS: HYDROMORPHONE 0.5 MG INJ IV (09:44)
[2024-06-29] MEDS: ONDANSETRON 4 MG/2 ML INJ IV (09:44)
[2024-06-29 10:00] LABS: Alanine Aminotransferase 22 IU/L (<35); Albumin 4.1 g/dL (3.5-5.0); Albumin Globulin Ratio 1.1 (1.0-2.8); Alkaline Phosphatase 102 U/L (38-126); Aspartate Aminotransferase 35 IU/L (14-36); BUN Creatinine Ratio 19.8 (6-22); Bilirubin Total 0.6 mg/dL (0.2-1.3); Blood Urea Nitrogen 21 mg/dL (7-17); Calcium 9.5 mg/dL (8.4-10.2); Carbon Dioxide 25 mmol/L (22-32); Chloride 103 mmol/L (98-107); Estimated Glomerular Filt Rate 54 mL/min (>60); Globulin 3.8 g/dL (1.7-4.1); Glucose 105 mg/dL (80-110); HEMOLYSIS < 15 (0-50); Potassium 3.9 mmol/L (3.4-5.1); Sodium 137 mmol/L (137-145); Total Protein 7.9 g/dL (6.3-8.2)
== END 2024-06-29 11:21 | disposition home or self-care (01) ==
PROVIDERS: Emergency Provider Emergency Medicine; PCP Family Medicine
DX: R10.31 Right lower quadrant pain (principal); K59.00 Constipation, unspecified
CPT/HCPCS: 36415; 74177; 80053; 85025; 96361; 96374; 96375; 99284; J1170; J1885; J2405; Q9967

== ENCOUNTER → 2025-03-24 08:14 | Outpatient (CLI) | payer MEDICARE, SELFPAY ==
[2024-01-15 08:36] VITALS: BMI 21.1
== END ==
PROVIDERS: PCP Family Medicine; Referring Provider Family Medicine; Visit Provider Surgery
DX: B99.9 Unspecified infectious disease (principal); L97.322 Non-pressure chronic ulcer of left ankle with fat layer exposed; T83.729A Exposure of other prosthetic materials into organ or tissue, initial encounter; L53.9 Erythematous condition, unspecified; I10 Essential (primary) hypertension; Z86.79 Personal history of other diseases of the circulatory system; N18.30 Chronic kidney disease, stage 3 unspecified; E03.9 Hypothyroidism, unspecified; C78.5 Secondary malignant neoplasm of large intestine and rectum
CPT/HCPCS: 87070; 87205; 97602; 99204; 99214

== ENCOUNTER → 2025-03-24 09:41 | Outpatient (CLI) | payer MEDICARE, SELFPAY ==
[2024-01-15 08:36] VITALS: BMI 21.1
--- NOTE | 2025-03-24 09:43 | DI.RAD.S_ITS ---
PROCEDURE: XR ANKLE LT MIN 3V INDICATIONS: possible osteomylitis TECHNIQUE: 3 views of the ankle were acquired. COMPARISON: [facility], CR, XR ANKLE LT MIN 3V, 05/02/2023, 9:51. FINDINGS: No acute fracture or dislocation. Healed bimalleolar fracture status post distal fibular plate and screw fixation, syndesmotic screw fixation, and lateral malleolar screw fixation. No hardware complication. Mild tibiotalar osteoarthritis. No talar dome osteochondral defect. No significant tibiotalar joint effusion. No osseous erosions, periosteal reaction, or focal osteopenia. IMPRESSION: No radiographic evidence of osteomyelitis or hardware complication. If there is persistent concern, consider a triple phase nuclear medicine bone scan for evaluation of osteomyelitis. Dictated by: Hardik Loyd M.D. on 03/24/2025 at 11:17 Approved by: Hardik Loyd M.D. on 03/24/2025 at 11:42
[2025-03-24 10:25] LABS: Add Manual Diff / Slide Review NO; Basophils Absolute Auto 0 /uL (0-100); Basophils Percent Auto 0.4 % (0-2); Eosinophils Absolute Auto 100 /uL (0-450); Eosinophils Percent Auto 0.9 % (2-4); Hemoglobin 13.7 g/dL (12.0-16.0); Lymphocytes Absolute Auto 2000 /uL (1100-4500); Mean Corpuscular HGB Conc 34.2 % (30-36); Mean Corpuscular Volume 93.7 fL (80-100); Monocytes Absolute Auto 1000 /uL (0-900); Monocytes Percent Auto 12.6 % (3-14); Neutrophils Absolute Auto 5100 /uL (1500-7000); Neutrophils Percent Auto 62.1 % (50-75); Platelet Count 311 X10^3/uL (150-400); Red Blood Cell Count 4.27 X10^6/uL (4.0-5.2); Red Cell Distribution Width 12.8 % (11.6-14.8); White Blood Cell Count 8.3 X10^3/uL (4.5-11.0)
[2025-03-24 10:47] LABS: Alanine Aminotransferase 23 IU/L (<35); Albumin 4.3 g/dL (3.5-5.0); Albumin Globulin Ratio 1.2 (1.0-2.8); Alkaline Phosphatase 116 U/L (38-126); Aspartate Aminotransferase 35 IU/L (14-36); BUN Creatinine Ratio 23.1 (6-22); Bilirubin Total 0.7 mg/dL (0.2-1.3); Blood Urea Nitrogen 25 mg/dL (7-17); C-Reactive Protein Quant 3.4 mg/dL (<1.0); Calcium 9.8 mg/dL (8.4-10.2); Carbon Dioxide 27 mmol/L (22-32); Chloride 101 mmol/L (98-107); Estimated Glomerular Filt Rate 53 mL/min (>60); Globulin 3.7 g/dL (1.7-4.1); Glucose 91 mg/dL (70-99); HEMOLYSIS < 15 (0-50); Potassium 4.5 mmol/L (3.4-5.1); Sodium 139 mmol/L (137-145)
[2025-03-24 10:49] LABS: Erythrocyte Sedimentation Rate 67 MM/HR (0-20)
== END ==
PROVIDERS: PCP Family Medicine; Referring Provider Surgery; Visit Provider Surgery
DX: S91.002A Unspecified open wound, left ankle, initial encounter (principal); L08.9 Local infection of the skin and subcutaneous tissue, unspecified; M19.072 Primary osteoarthritis, left ankle and foot; Z96.7 Presence of other bone and tendon implants; X58.XXXA Exposure to other specified factors, initial encounter
CPT/HCPCS: 36415; 73610; 80053; 85025; 85651; 86140; 87070; 87205

== ENCOUNTER → 2025-04-02 08:31 | Outpatient (CLI) | payer MEDICARE, SELFPAY ==
[2025-03-24 12:16] VITALS: BMI 21.1
== END ==
PROVIDERS: PCP Family Medicine; Referring Provider Family Medicine; Visit Provider Surgery
DX: B99.9 Unspecified infectious disease (principal); L97.322 Non-pressure chronic ulcer of left ankle with fat layer exposed
CPT/HCPCS: 99213

== ENCOUNTER → 2025-04-09 09:19 | Outpatient (CLI) | payer MEDICARE, SELFPAY ==
[2025-03-24 12:16] VITALS: BMI 21.1
== END ==
LOC: WC 09:21
PROVIDERS: PCP Family Medicine; Referring Provider Family Medicine; Visit Provider Obstetrics & Gynecology
DX: B99.9 Unspecified infectious disease (principal); T83.729A Exposure of other prosthetic materials into organ or tissue, initial encounter; L97.322 Non-pressure chronic ulcer of left ankle with fat layer exposed
CPT/HCPCS: 99213

== ENCOUNTER → 2025-04-16 09:20 | Outpatient (CLI) | payer MEDICARE, SELFPAY ==
[2025-03-24 12:16] VITALS: BMI 21.1
== END ==
LOC: WC 09:22
PROVIDERS: PCP Family Medicine; Referring Provider Family Medicine; Visit Provider Surgery
DX: B99.9 Unspecified infectious disease (principal); L97.322 Non-pressure chronic ulcer of left ankle with fat layer exposed; T83.729A Exposure of other prosthetic materials into organ or tissue, initial encounter; L53.9 Erythematous condition, unspecified
CPT/HCPCS: 97602; 99213

== ENCOUNTER → 2025-04-23 09:29 | Outpatient (CLI) | payer MEDICARE, SELFPAY ==
[2025-03-24 12:16] VITALS: BMI 21.1
== END ==
LOC: WC 09:35
PROVIDERS: PCP Family Medicine; Referring Provider Family Medicine; Visit Provider Surgery
DX: B99.9 Unspecified infectious disease (principal); L97.322 Non-pressure chronic ulcer of left ankle with fat layer exposed; T83.729A Exposure of other prosthetic materials into organ or tissue, initial encounter; N18.30 Chronic kidney disease, stage 3 unspecified; Z86.79 Personal history of other diseases of the circulatory system; I10 Essential (primary) hypertension; E03.9 Hypothyroidism, unspecified; F32.A Depression, unspecified; E78.5 Hyperlipidemia, unspecified; I25.10 Atherosclerotic heart disease of native coronary artery without angina pectoris; G43.909 Migraine, unspecified, not intractable, without status migrainosus
CPT/HCPCS: 99213

== ENCOUNTER → 2025-05-01 08:57 | Outpatient (CLI) | payer MEDICARE, SELFPAY ==
[2025-03-24 12:16] VITALS: BMI 21.1
== END ==
PROVIDERS: PCP Family Medicine; Referring Provider Family Medicine; Visit Provider Surgery
DX: B99.9 Unspecified infectious disease (principal); L97.322 Non-pressure chronic ulcer of left ankle with fat layer exposed; T83.729A Exposure of other prosthetic materials into organ or tissue, initial encounter; R21 Rash and other nonspecific skin eruption; Z87.81 Personal history of (healed) traumatic fracture
CPT/HCPCS: 99212; 99213

== ENCOUNTER → 2025-05-08 09:05 | Outpatient (CLI) | payer MEDICARE, SELFPAY ==
[2025-03-24 12:16] VITALS: BMI 21.1
== END ==
LOC: WC 09:07
PROVIDERS: PCP Family Medicine; Referring Provider Family Medicine; Visit Provider Surgery
DX: B99.9 Unspecified infectious disease (principal); L97.322 Non-pressure chronic ulcer of left ankle with fat layer exposed; T83.729A Exposure of other prosthetic materials into organ or tissue, initial encounter
CPT/HCPCS: 11042; 87070; 87075; 87205; 99213

== ENCOUNTER 2025-05-27 10:14 | Inpatient (IN) | payer MEDICARE, SELFPAY ==
[2025-03-24 12:16] VITALS: BMI 21.1
[2025-05-27] VITALS (28 sets, daily range): BP systolic 123–199; BP diastolic 57–125; PULSE 63–86; RESP 14–33; TEMP 36–36.9; O2SAT 96–99; BMI 24.7
--- NOTE | 2025-05-27 10:15 | DI.RAD.S_ITS ---
PROCEDURE: XR CHEST 1V INDICATIONS: Chest Pain TECHNIQUE: One view of the chest was acquired. COMPARISON: [facility], CR, XR CHEST 1V, 10/03/2023, 11:50. FINDINGS: Surgical changes and devices: None. Lungs and pleura: Lungs are clear. No pleural effusions or pneumothorax. Mediastinum: Mediastinal contours appear normal. Heart size is normal. Bones and chest wall: No suspicious bony lesions. Overlying soft tissues appear unremarkable. IMPRESSION: No acute cardiopulmonary abnormality is seen. Dictated by: Asher Dawn M.D. on 05/27/2025 at 10:37 Approved by: Asher Dawn M.D. on 05/27/2025 at 10:37
--- NOTE | 2025-05-27 10:15 | EKG_ITS ---
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
[2025-05-27] MEDS: ASPIRIN 81 MG CHEW TAB 324 MG PO (10:20)
[2025-05-27 10:37] LABS: Add Manual Diff / Slide Review NO; Hematocrit 40.6 % (36-46); Hemoglobin 13.9 g/dL (12.0-16.0); Lymphocytes Absolute Auto 2800 /uL (1100-4500); Mean Corpuscular HGB Conc 34.2 % (30-36); Mean Corpuscular Hemoglobin 31.5 PG (26-34); Mean Corpuscular Volume 91.9 fL (80-100); Platelet Count 296 X10^3/uL (150-400)
[2025-05-27 10:43] LABS: INR 1.0 (0.9-1.3); Prothrombin Time 11.7 SECONDS (9.4-12.5)
[2025-05-27 10:45] LABS: PTT Partial Thromboplastin Tim 29 SECONDS (25.1-36.5)
--- NOTE | 2025-05-27 10:49 | ED.CHESTPAIN ---
HPI - Chest Pain General Chief Complaint: Chest Pain Stated Complaint: Possible Heart attack Time Seen by Provider: 05/27/25 10:17 Source: patient Mode of arrival: Ambulatory Limitations: no limitations History of Present Illness HPI narrative: 80-year-old female patient with a history of hypertension, dyslipidemia and depression/anxiety who complains of chest pain off and on for 2 weeks but much worse since yesterday, especially the 1-2 hours prior to coming to the ER. She describes this as 9/10 squeezing chest pain with no radiation. Mild shortness of breath but no diaphoresis or nausea. Patient has had occasional chest pain over the years but nothing like this. She admits to stress but not necessarily increased over her baseline. She did receive 1 aspirin prior to coming to the ER. Chest pain is now improved down to about 4/10. Related Data Home Medications ?Medication ?Instructions ?Recorded ?Confirmed aspirin 81 mg tablet,delayed 81 mg PO QPM 01/28/19 05/27/25 release albuterol sulfate 90 mcg/actuation 1 inh inhalation Q4HR PRN 02/24/23 05/27/25 aerosol inhaler Shortness Of Breath Previous Rx's ?Medication ?Instructions ?Recorded clopidogrel 75 mg tablet 75 mg PO DAILY #90 tabs 05/03/24 mupirocin calcium 2 % topical cream 1 applic topical BID #30 grams 05/16/24 triamcinolone acetonide 0.5 % 1 applic topical BID #15 grams 05/16/24 topical cream bupropion HCl 150 mg 24 hr tablet, 150 mg PO QAM #90 tabs 09/19/24 extended release (Wellbutrin XL) mirtazapine 7.5 mg tablet 7.5 mg PO BEDTIME #30 tabs 02/26/25 metoprolol succinate 25 mg 25 mg PO DAILY #90 tabs 04/04/25 tablet,extended release 24 hr Allergies Allergy/AdvReac Type Severity Reaction Status Date / Time ampicillin Allergy Unknown Verified 05/27/25 13:06 Review of Systems Review of Systems Narrative: GENERAL: Denies chills, fatigue, malaise, fever, sweats. HEENT: Denies sinus pain, ear pain, sore throat, difficulty swallowing, dizziness. RESPIRATORY: Denies dyspnea, cough, wheezing, hemoptysis, sputum. CARDIOVASCULAR: See HPI. Denies palpitations, orthopnea, edema, GASTROINTESTINAL: Denies nausea, vomiting, abdominal pain, diarrhea, constipation, melena. : Denies dysuria, frequency, incontinence, hematuria, urinary retention. MUSCULOSKELETAL: denies weakness, joint pain, or bony pain SKIN: Denies rash, skin lesions, or other NEUROLOGIC: Denies weakness, headache, numbness, change in speech, confusion, seizures, incoordination. PSYCHIATRIC: See HPI. Otherwise No concerning psychosocial issues. 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 Mother Respiratory disease Cerebral aneurysm Brother In good health Social History household members: none Smoking Status: Never smoker alcohol intake: never substance use type: does not use Smoking Status: Never smoker alcohol intake frequency: holidays/special occasions only Exam Narrative Exam Narrative: GENERAL: 80 year old patient appears stated age. Well-developed patient, in mild distress. Tearful. HEAD: Atraumatic. Normocephalic. EYES: Pupils equal round and reactive. Extraocular motions intact. No scleral icterus. No injection or drainage. ENT: Nose without bleeding, purulent drainage. Throat without erythema, tonsillar hypertrophy or exudate. Airway patent. NECK: Trachea midline. Non tender CARDIOVASCULAR: Regular rate and rhythm without murmurs, gallops, or rubs. RESPIRATORY: Clear to auscultation. Breath sounds equal bilaterally. No wheezes, rales, or rhonchi. GASTROINTESTINAL: Abdomen soft, non-tender, nondistended. EXTREMITIES: No edema or joint tenderness. BACK: Nontender without deformity or crepitance. No flank tenderness. NEURO: AOx3. SKIN: No rash or erythema of visible areas Initial Vital Signs Initial Vital Signs: Vital Signs Pulse Rate 82 05/27/25 10:20 Pulse Oximetry 99 05/27/25 10:20 Course Orders Ordered: ED Orders 05/27/25 10:15 XR chest 1V Stat EKG-12 Lead Stat 05/27/25 10:23 Complete Blood Count AUTO DIFF Stat Comprehensive Metabolic Panel Stat Lipase Stat Magnesium Stat NT-proBNP (BNP-Adult 18+) Stat PTT Partial Thromboplastin Damon Stat Prothrombin Time INR Stat Troponin & CK Cardiac Panel Stat 05/27/25 11:08 EKG-12 Lead Stat Aspirin (Aspirin Ec 81 Mg Tablet) 81 mg PO DAILY SHERRI Atorvastatin Calcium (Atorvastatin 20 Mg Tablet) 80 mg PO BEDTIME SHERRI Bupropion HCl (Bupropion Xl 150 Mg Tab) 150 mg PO DAILY SHERRI Clopidogrel Bisulfate (Clopidogrel 75 Mg Tablet) 75 mg PO DAILY SHERRI Nitroglycerin (Nitroglycerin) 50 mg in 250 mls @ 1.5 mls/hr IV TITRATE SHERRI; Protocol Last Titration: 05/27/25 17:34 Dose: 10 mcg/min, 3 mls/hr Documented By: Titration: 05/27/25 14:24 Dose: 15 mcg/min, 4.5 mls/hr Documented By: Titration: 05/27/25 12:40 Dose: 10 mcg/min, 3 mls/hr Documented By: Admin: 05/27/25 11:45 Dose: 5 mcg/min, 1.5 mls/hr Documented By: DARSHANA Heparin Sodium/Dextrose (Heparin Drip) 25,000 unit in 500 mls @ 16.656 mls/hr IV CONT SHERRI; Protocol Last Admin: 05/27/25 11:50 Dose: 12 units/kg/hr, 16.656 mls/hr Documented By: DARSHANA Co-signed By: CÉSAR Metoprolol Succinate (Metoprolol Er 25 Mg Tablet) 25 mg PO DAILY SHERRI Mirtazapine (Mirtazapine 15 Mg Tablet) 7.5 mg PO BEDTIME SHERRI Morphine Sulfate (Morphine 2 Mg/Ml Inj) 2 mg IV Q2HR PRN PRN Reason: Pain, Moderate (4-6) Last Admin: 05/27/25 15:05 Dose: 2 mg Documented By: RENAY Naloxone HCl (Naloxone 0.4 Mg/Ml Vial) 0.2 mg IV Q2MIN PRN PRN Reason: Opiate Reversal Nitroglycerin (Nitroglycerin 0.4 Mg Sl Tab) 0.4 mg SL [id number] PRN PRN Reason: Chest Pain Last Admin: 05/27/25 11:10 Dose: 0.4 mg Documented By: DARSHANA Discontinued Medications Aspirin (Aspirin 81 Mg Chew Tab) 324 mg PO NOW ONE Stop: 05/27/25 10:16 Last Admin: 05/27/25 10:20 Dose: 243 mg Documented By: VAN Aspirin (Aspirin Ec 81 Mg Tablet) 81 mg PO BEDTIME SHERRI Heparin Sodium (Porcine) (Heparin 5,000 Unit/Ml Vial) 4,000 unit 60 unit/kg (4000 unit) IV NOW ONE Stop: 05/27/25 11:20 Last Admin: 05/27/25 11:49 Dose: 4,000 unit Documented By: DARSHANA Metoprolol Succinate (Metoprolol Er 25 Mg Tablet) 25 mg PO NOW ONE Stop: 05/27/25 17:49 Last Admin: 05/27/25 18:00 Dose: 25 mg Documented By: RENAY Vital Signs Vital signs: Vital Signs - 8 hr 05/27/25 11:00 05/27/25 11:00 05/27/25 11:10 Pulse Rate 71 68 Respiratory Rate 17 Blood Pressure 173/79 H 173/79 H Pulse Oximetry 99 MDM - Chest Pain Lab Data Attestation: I reviewed the patient's lab results. Lab results narrative: Elevated troponin at 0.27. Otherwise lab work unremarkable 05/27/25 10:23 05/27/25 10:23 Labs: Lab Results 05/27/25 Range/Units 10:23 WBC 9.6 (4.5-11.0) X10^3/uL RBC 4.42 (4.0-5.2) X10^6/uL Hgb 13.9 (12.0-16.0) g/dL Hct 40.6 (36-46) % MCV 91.9 (80-100) fL MCH 31.5 (26-34) PG MCHC 34.2 (30-36) % RDW 13.4 (11.6-14.8) % Plt Count 296 (150-400) X10^3/uL Neut % (Auto) 60.2 (50-75) % Lymph % (Auto) 29.2 (25-40) % [place] % (Auto) 8.6 (3-14) % Eos % (Auto) 1.2 L (2-4) % Baso % (Auto) 0.8 (0-2) % Neut # (Auto) 5800 (5214-7946) /uL Lymph # (Auto) 2800 (7690-9606) /uL [place] # (Auto) 800 (0-900) /uL Eos # (Auto) 100 (0-450) /uL Baso # (Auto) 100 (0-100) /uL PT 11.7 (9.4-12.5) SECONDS INR 1.0 (0.9-1.3) APTT 29 (25.1-36.5) SECONDS Sodium 140 (137-145) mmol/L Potassium 3.9 (3.4-5.1) mmol/L Chloride 105 (98-107) mmol/L Carbon Dioxide 25 (22-32) mmol/L BUN 16 (7-17) mg/dL Creatinine 1.00 (0.52-1.04) mg/dL Estimated GFR 58 L (>60) mL/min BUN/Creatinine Ratio 16.0 (6-22) Glucose 110 H (70-99) mg/dL Calcium 9.3 (8.4-10.2) mg/dL Magnesium 2.0 (1.6-2.3) mg/dL Total Bilirubin 0.6 (0.2-1.3) mg/dL AST 37 H (14-36) IU/L ALT 18 (<35) IU/L Alkaline Phosphatase 103 (38-126) U/L Total Creatine Kinase 80 (30-135) U/L Troponin I 0.270 H* (0.01-0.034) ng/mL NT-Pro-B Natriuret Pep 1540 H (<450) pg/mL Total Protein 8.6 H (6.3-8.2) g/dL Albumin 4.4 (3.5-5.0) g/dL Globulin 4.2 H (1.7-4.1) g/dL Albumin/Globulin Ratio 1.0 (1.0-2.8) Lipase 129 (23-300) U/L Imaging Data Chest x-ray: Attestation: I personally reviewed and interpreted this imaging study as follows: (No acute disease. No mediastinal widening or infiltrates.) ECG Data Attestation: I personally reviewed and interpreted this ECG as follows: (Sinus rhythm. Rate 78 LAD. T-wave flattening in the anterior leads. Intervals normal and otherwise no ischemic changes) MDM Narrative Medical decision making narrative: 11:00 Patient's initial troponin comes back elevated at 0.27. I ordered nitroglycerin sublingual and a repeat EKG. Repeat EKG is unchanged with normal sinus rhythm, LAD and anterior T-wave flattening but no other changes. 11:15 I discussed the patient's care with Dr. Crenshaw, cardiology who recommends nitroglycerin and heparin drips and admit to hospitalist with serial troponins. He will consult with hospitalist. 11:25 I discussed the patient's care with Dr. Rojo, hospitalist who accepts the admit to ICU for non STEMI. Patient has been started on nitroglycerin and heparin drips. Critical Care Time Critical Care Time Critical Care Time: Yes Total Critical Care Time: 35 Attestation: Critical Care Time [35] minutes: Critical care time is separate from other billable procedures. This critical care time includes consultation with family and other consulting doctors, review of records, and interpretation of data from labs, EKGs, imaging, etc. Consult with multiple other providers. Close monitoring patient's symptoms and response to therapy. Discharge Plan Departure Patient Disposition: Admitted As Inpatient Clinical Impression: Acute non-ST elevation myocardial infarction (NSTEMI) Admit Date/Time: 05/27/25 11:28 Admit Provider: Jordan Frias
[2025-05-27 10:50] LABS: Alanine Aminotransferase 18 IU/L (<35); Albumin 4.4 g/dL (3.5-5.0); Albumin Globulin Ratio 1.0 (1.0-2.8); Alkaline Phosphatase 103 U/L (38-126); Blood Urea Nitrogen 16 mg/dL (7-17); Calcium 9.3 mg/dL (8.4-10.2); Carbon Dioxide 25 mmol/L (22-32); Chloride 105 mmol/L (98-107); Creatine Kinase 80 U/L (30-135); Estimated Glomerular Filt Rate 58 mL/min (>60); Globulin 4.2 g/dL (1.7-4.1); Glucose 110 mg/dL (70-99); HEMOLYSIS 16 (0-50); Lipase 129 U/L (23-300); Magnesium 2.0 mg/dL (1.6-2.3); Potassium 3.9 mmol/L (3.4-5.1); Sodium 140 mmol/L (137-145); Total Protein 8.6 g/dL (6.3-8.2)
[2025-05-27 11:02] LABS: NT-proBNP (BNP-Adult 18+) 1540 pg/mL (<450)
[2025-05-27 11:05] LABS: Troponin I 0.270 ng/mL (0.01-0.034)
[2025-05-27] MEDS: NITROGLYCERIN 0.4 MG SL TAB SL (11:10)
--- NOTE | 2025-05-27 11:11 | EKG_ITS ---
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
[2025-05-27] MEDS: NITROGLYCERIN 50 MG/250 ML INFUS..BTL IV (11:45)
[2025-05-27] MEDS: HEPARIN 5,000 UNIT/ML VIAL 4000 UNIT IV (11:49)
[2025-05-27] MEDS: HEPARIN DRIP 25,000 UNIT/500 ML IV.SOLN 16.656 UNIT IV (11:50)
--- NOTE | 2025-05-27 11:52 | PM.HP.1 ---
History of Present Illness History of Present Illness Date Patient Seen: 05/27/25 Time Patient Seen: 11:52 Chief complaint: Possible Heart attack Narrative: This is a 80-year-old female with major depression, peripheral vascular disease, COPD, CKD, history of cerebral aneurysm, hypothyroidism and hypertension who presents with apparent unstable angina. She describes chest pain when walking her dogs starting 1 week ago. This resolves with 5 minutes of seated rest. The pain is in the center of her chest and radiates into both arms and to her mouth. Her records describe a history of coronary artery disease stenting which she denies. She is a known vasculopath with what she describes as stenting to an artery feeding her right hand and also in both legs. She takes Plavix, metoprolol and Wellbutrin but is not on aspirin or a statin. She does not recall why or when she stopped the atorvastatin. Her intial EKG shows subtle ST segment depression in leads V3 through V5 initially and then on her 2nd EKG the ST segment in V1 and V2 is subtly increased. The Troponin is 0.27 with a BNP of 1540. Per ED discussion with deckhand engineer Dr. Crenshaw she will be placed on IV nitroglycerin drip and IV heparin drip for NSTEMI. Complicating and delaying her decision process on what to do if this is indeed a STEMI is a distinctive overlay of major depression. She wants to be very clear that she is DNR and does not want her life prolonged by any intervention. 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 Mother Respiratory disease Cerebral aneurysm Brother In good health Social History household members: none Smoking Status: Never smoker alcohol intake: never substance use type: does not use Meds Home Medications and Allergies Home Medications ?Medication ?Instructions ?Recorded ?Confirmed ?Type aspirin 81 mg tablet,delayed 81 mg PO QPM 01/28/19 05/27/25 History release albuterol sulfate 90 mcg/actuation 1 inh inhalation Q4HR PRN 02/24/23 05/27/25 History aerosol inhaler Shortness Of Breath clopidogrel 75 mg tablet 75 mg PO DAILY #90 tabs 05/03/24 05/27/25 Rx mupirocin calcium 2 % topical cream 1 applic topical BID #30 grams 05/16/24 05/27/25 Rx triamcinolone acetonide 0.5 % 1 applic topical BID #15 grams 05/16/24 05/27/25 Rx topical cream bupropion HCl 150 mg 24 hr tablet, 150 mg PO QAM #90 tabs 09/19/24 05/27/25 Rx extended release (Wellbutrin XL) mirtazapine 7.5 mg tablet 7.5 mg PO BEDTIME #30 tabs 02/26/25 05/27/25 Rx metoprolol succinate 25 mg 25 mg PO DAILY #90 tabs 04/04/25 05/27/25 Rx tablet,extended release 24 hr Allergies Allergy/AdvReac Type Severity Reaction Status Date / Time ampicillin Allergy Unknown Verified 05/27/25 13:06 Review of Systems Review of Systems Narrative: Positive for chest pain, depression, tearfulness, exercise intolerance. Negative for abdominal pain, nausea, vomiting, diarrhea, bleeding, rashes, joint pain, headache, new allergies. Exam Vital Signs (past 8 hours): - 05/27/25 10:23 05/27/25 10:29 05/27/25 11:10 Temperature 98.4 F Pulse Rate 86 76 68 Respiratory Rate 16 18 Blood Pressure 194/88 H 171/79 H 173/79 H Pulse Oximetry 99 99 Oxygen Delivery Method Room Air Room Air 05/27/25 11:45 Temperature Pulse Rate 68 Respiratory Rate Blood Pressure 138/68 Pulse Oximetry Oxygen Delivery Method Oxygen Delivery Method Room Air Narrative Exam Narrative: Alert and oriented x3. Appears to be in moderate distress from both recent exertional chest pain/angina and substantial depressive symptoms. She is tearful. She is indecisive. Pupils are equally round and reactive to light and accommodation. Extraocular muscles are intact. Sclerae are pink and nonicteric. No lymph nodes are felt head, neck, supraclavicular area. There is no thyromegaly. JVD is less than 6 cm. No carotid bruits are heard. Heart is regular rate and rhythm without murmur Lungs are clear to auscultation bilaterally Abdomen is soft, bowel sounds positive, nontender, no organomegaly. Extremities have no ankle edema. Feet are warm to the touch. There is no discoloration. Neurologic exam: The patient is tearful. The patient is contradicting/not be able to remember medical details that are already in her chart. Cranial nerves 2-12 test intact. Motor function is 5/5 throughout. There is no tremor. DTRs are symmetric. Objective Labs 05/27/25 10:23 05/27/25 10:23 Labs: Laboratory Results - last 24 hr 05/27/25 10:23 WBC 9.6 RBC 4.42 Hgb 13.9 Hct 40.6 MCV 91.9 MCH 31.5 MCHC 34.2 RDW 13.4 Plt Count 296 Neut % (Auto) 60.2 Lymph % (Auto) 29.2 [place] % (Auto) 8.6 Eos % (Auto) 1.2 L Baso % (Auto) 0.8 Neut # (Auto) 5800 Lymph # (Auto) 2800 [place] # (Auto) 800 Eos # (Auto) 100 Baso # (Auto) 100 PT 11.7 INR 1.0 APTT 29 Sodium 140 Potassium 3.9 Chloride 105 Carbon Dioxide 25 BUN 16 Creatinine 1.00 Estimated GFR 58 L BUN/Creatinine Ratio 16.0 Glucose 110 H Calcium 9.3 Magnesium 2.0 Total Bilirubin 0.6 AST 37 H ALT 18 Alkaline Phosphatase 103 Total Creatine Kinase 80 Troponin I 0.270 H* NT-Pro-B Natriuret Pep 1540 H Total Protein 8.6 H Albumin 4.4 Globulin 4.2 H Albumin/Globulin Ratio 1.0 Lipase 129 Assessment & Plan Assessment & Plan narrative: his is a 80-year-old female with major depression, peripheral vascular disease, COPD, CKD, history of cerebral aneurysm, hypothyroidism and hypertension who presents with apparent unstable angina. She describes chest pain when walking her dogs starting 1 week ago. This resolves with 5 minutes of seated rest. The pain is in the center of her chest and radiates into both arms and to her mouth. Her records describe a history of coronary artery disease stenting which she denies. She is a known vasculopath with what she describes as stenting to an artery feeding her right hand and also in both legs. NSTEMI, present on admission. Active. -ED discussed with Cardiology, Dr. Crenshaw who recommended IV heparin drip and IV nitroglycerin drip along with monitoring of serial enzymes and echocardiogram. -EKG shows subtle ST elevation in leads V1 and V2 with an initial troponin of 0.270. -patient is a known vasculopath with severe peripheral vascular disease, currently treated with Plavix and metoprolol. -EMR medical history includes a history of coronary stenting which the patient denies. -add aspirin daily (after receiving 325 mg in the ED today) and begin atorvastatin high dose. -she has a significant overlay of major depression which Complicates her decision process on what to do if this is indeed a STEMI. She wants to be very clear that she is DNR and does not want her life prolonged by any intervention. Peripheral vascular disease, present on admission. Active. -patient describes stenting processes to both legs and the right upper extremity. -add aspirin, continue Plavix -add atorvastatin Major depression, present on admission. Active. -continue bupropion and mirtazapine -Consider additional treatment. COPD, present on admission. Stable. -patient describes using oxygen at home for several years but states that it never helped with any symptoms so she returned it recently. No current hypoxia. Hypothyroidism, present on admission. Stable. -no current treatment, check TSH Hyperlipidemia, present on admission. Stable. -no current treatment, check lipids, begin atorvastatin. DVT prevention: IV heparin drip Her proxy decision maker is her ?sister's son in law? who lives out of state and is her executor. She does not want her sister involved in any decisions. Time-Based Coding :: [TOTAL MINUTES] spent with patient and on the chart (including review of chart, obtaining history, exam, reviewing outside data, placing orders, documenting exam and treatment plan, and counseling patient) on [DATE].
--- NOTE | 2025-05-27 12:28 | DI.ECHO.S_ITS ---
[place] [facility]---------+ [facility] : : [address] : : [place] : : [id number] : : Phone: [phone] Echocardiogram Report + + :Name: TRISHA PEREZ Study Date: 05/27/2025 Height: 66 in : :[facility] ReadingLocation: Weight: 153 lb : : Gender: Female BSA: 1.8 m2 : :: 1945 Age: 80 yrs BP: 151/74 mmHg: :Reason For Study: STEMI : :Ordering Physician: IVETTE, : :LIANE Rosales Performed By: Pili Crooks : :Referring: LIANE STEELE : + + Interpretation Summary The ejection fraction is estimated to be 55-60%. Compared to the prior echo study, there has been an increase in the severity of mitral regurgitation. The mitral regurgitant jet is eccentrically directed. There is no other significant valvular heart disease. Procedure: A two-dimensional transthoracic echocardiogram with color flow and Doppler was performed. The study quality was technically adequate. Comparison is made with the echocardiogram of 02/25/2023. The patient was in sinus rhythm with heart rates between 50-64 bpm during the exam. Left Ventricle: The left ventricle is normal in size and wall thickness. The ejection fraction is estimated to be 55-60%. Left ventricular wall motion is normal. Normal diastolic function. Right Ventricle: The right ventricle is normal size. The right ventricular systolic function is normal. Atria: The left atrial size is normal. Right atrial size is normal. There is no Doppler evidence for an interatrial shunt. Mitral Valve: The mitral valve leaflets appear mildly thickened. There is mild mitral annular calcification. There is moderate mitral regurgitation. Compared to the prior echo study, there has been an increase in the severity of mitral regurgitation. The mitral regurgitant jet is eccentrically directed. Aortic Valve: The aortic valve is grossly normal. There is no aortic valve stenosis. No aortic regurgitation is present. Tricuspid Valve: The tricuspid valve leaflets are thin and pliable. There is trace tricuspid regurgitation. Pulmonary artery pressures cannot be estimated because of the lack of a measurable TR jet velocity but the IVC suggests a CVP of around 3 mmHg. Pulmonic Valve: The pulmonic valve leaflets are thin and pliable; valve motion is normal. There is trace pulmonic regurgitation. Great Vessels: The aortic root is normal size. The IVC is of normal diameter and collapses greater than 50% with a sniff. This suggests a low right atrial pressure of 3 mm Hg. Pericardium/ Pleura There is no pericardial effusion. There is no pleural effusion. MMode/2D Measurements & Calculations LVIDd: 3.7 cm LVOT diam: 2.0 cm LVIDs: 2.4 cm Ao root diam: 2.9 cm FS: 35.7 % Ao Arch Diam (Prox Trans): 2.5 cm IVSd: 1.0 cm LVPWd: 0.87 cm LV george. diameter/BSA (cm/m^2): 2.1 LV sys. diameter/BSA (cm/m^2): 1.3 LA A2 area: 16.1 cm2 RA long axis: 4.9 cm LA A4 area: 17.7 cm2 RA area: 9.4 cm2 LA length (vol): 4.8 cm RA vol: 15.3 ml LA vol: 50.3 ml RA : 8.6 ml/m2 LA vol index: 28.2 ml/m2 IVC diam: 1.1 cm RVD1 (basal): 2.8 cm RVD2 (mid): 2.2 cm TAPSE: 1.8 cm Doppler Measurements & Calculations Ao V2 max: 128.1 cm/sec LVOT Max Rudi: 101.4 cm/sec Ao V2 mean: 95.7 cm/sec LV V1 max P.1 mmHg Ao max P.6 mmHg LV V1 VTI: 25.0 cm Ao mean P.9 mmHg MARGOT(I,D): 2.5 cm2 Ao V2 VTI: 31.5 cm MARGOT(V,D): 2.5 cm2 sev ratio: 0.79 MARGOT indexed to BSA (cm^2/m^2): 1.4 MV E max rudi: 80.7 cm/sec PA V2 max: 80.8 cm/sec MV A max rudi: 71.5 cm/sec PA V2 mean: 53.6 cm/sec MV E/A: 1.1 PA mean P.3 mmHg Med Peak E' Rudi: 5.6 cm/sec E/E' med: 14.5 Lat Peak E' Rudi: 9.1 cm/sec E/E' lat: 8.9 E/e' average: 11.7 MV dec time: 0.24 sec MVA(VTI): 2.7 cm2 MV V2 mean: 56.5 cm/sec SV(LVOT): 80.0 ml MV mean P.4 mmHg MV V2 VTI: 29.7 cm Reading Physician:05:06 PM
[2025-05-27 14:15] LABS: Troponin I 0.394 ng/mL (0.01-0.034)
[2025-05-27] MEDS: MORPHINE 2 MG/ML INJ IV (15:05)
--- NOTE | 2025-05-27 16:37 | PC.RNWOUND ---
Wound Photo Incision from approx 1 week ago per patient. Left lateral ankle. Incision cleansed with NS and new mepilex dressing applied. No drainage noted.
--- NOTE | 2025-05-27 17:07 | PC.NURSE ---
Addendum entered by Jina Santillan R.N. 05/27/25 17:52: Nitro gtt currently at 10 mcg/min, Dr. Rojo updated. Clarified plan to leave patient on nitro gtt overnight. Original Note: Day Shift Note Patient arrived to room 227 at 1245 via stretcher, able to stand and walk to bed, steady on feet, denies dizziness. Alert and oriented x4. SpO2 upper 90s on RA. Pt reports chest pain 4/10, middle of chest and radiates to shoulders, unchanged with rest. Nitro gtt infusing at 10 mcg/min on arrival, increased to 15 mcg/min due to continued chest pain. Heparin gtt infusing per cardiac protocol. SR in the 60s. Increase in nitro gtt did not help with chest pain on reassessment, pt reporting chest pain 6/10, Dr. Rojo notified and order received for morphine 2 mg IV. This was given (see emar) and pt reported immediate relief of chest pain. Chest pain 0/10 at this time. Oriented to room on arrival and to call light/bed/tv controls. Bed alarm on for safety, call light within reach, using appropriately to make needs known. Cell phone, electronic tablet, glasses, clothing, and pharmaceutical scientist with pt. Declines to lock up any valuables at this time.
[2025-05-27 17:20] LABS: MRSA (Nasal) PCR NOT DETECTED (Not Detect)
[2025-05-27] MEDS: METOPROLOL ER 25 MG TABLET PO (18:00)
[2025-05-27 19:36] LABS: PTT Partial Thromboplastin Tim 226 SECONDS (25.1-36.5)
[2025-05-27 19:37] LABS: Troponin I 0.557 ng/mL (0.01-0.034)
--- NOTE | 2025-05-27 20:01 | PC.NURSE ---
Patient PTT 266, Heparin gtt stopped for 1 hour and infusion rate decreased per protocol, Troponin 0.557 (0.394) BP 136/62(89), HR 69, RR 16, SpO2 96% on RA, no c/o chest pain, SOB. Hospitalist merchandising consultant notified.
[2025-05-27] MEDS: ATORVASTATIN 20 MG TABLET 80 MG PO (20:31)
[2025-05-27] MEDS: MIRTAZAPINE 15 MG TABLET 7.5 MG PO (20:31)
[2025-05-27 21:08] LABS: Thyroid Stimulating Hormone 9.37 uIU/mL (0.47-4.68)
[2025-05-28] VITALS (25 sets, daily range): BP systolic 111–170; BP diastolic 53–84; PULSE 62–84; RESP 15–39; TEMP 36.3–36.7; O2SAT 94–98
[2025-05-28] MEDS: MORPHINE 2 MG/ML INJ IV ×3 (03:21→22:47)
[2025-05-28 03:47] LABS: PTT Partial Thromboplastin Tim 82 SECONDS (25.1-36.5)
[2025-05-28 03:58] LABS: Cholesterol 271 mg/dL (140-199); HDL Cholesterol 46 mg/dL (40-60); Triglycerides 241 mg/dL (35-150)
[2025-05-28 04:13] LABS: Troponin I 0.622 ng/mL (0.01-0.034)
--- NOTE | 2025-05-28 05:59 | PC.NURSE ---
Troponin 0.622, BP 152/84 HR 70, chest pain relieved with Morphine IVP, no SOB, PTT 82, current heparin dose 7 units/kg/hr per cardiac heparin infusion protocol. Hospitalist on duty notified.
--- NOTE | 2025-05-28 08:22 | PM.CN ---
History of Present Illness Consult details Date Patient Seen: 05/28/25 Time Patient Seen: 08:25 Chief complaint: Possible Heart attack Requesting provider: Jordan Frias Narrative: 80-year-old female with past medical history significant for hyperlipidemia, peripheral vascular disease, carotid atherosclerotic disease, cerebral aneurysm came to the hospital emergency room with 2 week history of intermittent chest pains. She described her pain as pressure in the precordial area associated with shortness of breath extreme fatigue and exhaustion. Patient had trouble walking a block when she decided that she needs a medical attention. She kept avoiding coming to the emergency room. On the day of admission she had an episode severe crushing chest pressure symptoms associated with nausea vomiting: Clamminess and shortness of breath. She was admitted through the emergency room and subsequently admitted to the floor with a diagnosis of non ST elevation myocardial infarction. She was started on heparin drip, nitroglycerin drip and morphine. Since admission she has stated significant improvement in her symptoms of chest pressure. She is currently lying comfortably in bed. She has had serial troponins. She is currently resting in bed comfortably without any respiratory distress or chest pain symptoms. She is requesting discharge from the hospital to take care of her dogs. Meds Home Medications and Allergies Home Medications ?Medication ?Instructions ?Recorded ?Confirmed ?Type aspirin 81 mg tablet,delayed 81 mg PO QPM 01/28/19 05/27/25 History release albuterol sulfate 90 mcg/actuation 1 inh inhalation Q4HR PRN 02/24/23 05/27/25 History aerosol inhaler Shortness Of Breath clopidogrel 75 mg tablet 75 mg PO DAILY #90 tabs 05/03/24 05/27/25 Rx mupirocin calcium 2 % topical cream 1 applic topical BID #30 grams 05/16/24 05/27/25 Rx triamcinolone acetonide 0.5 % 1 applic topical BID #15 grams 05/16/24 05/27/25 Rx topical cream bupropion HCl 150 mg 24 hr tablet, 150 mg PO QAM #90 tabs 09/19/24 05/27/25 Rx extended release (Wellbutrin XL) mirtazapine 7.5 mg tablet 7.5 mg PO BEDTIME #30 tabs 02/26/25 05/27/25 Rx metoprolol succinate 25 mg 25 mg PO DAILY #90 tabs 04/04/25 05/27/25 Rx tablet,extended release 24 hr Allergies Allergy/AdvReac Type Severity Reaction Status Date / Time ampicillin Allergy Unknown Verified 05/27/25 13:06 Review of Systems Constitutional Constitutional: Reports excessive sweating, Reports fatigue and Reports lethargy Cardiovascular Cardiovascular: Reports chest pain, Reports chest pain at rest, Reports diaphoresis, Reports dyspnea and Reports dyspnea on exertion (rest and activity) Respiratory Respiratory: Reports dyspnea and Reports dyspnea on exertion (rest and activity) Musculoskeletal Comments: Left ankle pain Endocrine Endocrine: Reports excessive sweating and Reports fatigue Exam Vital Signs (past 8 hours): - 05/28/25 01:00 05/28/25 02:00 05/28/25 03:00 Pulse Rate 62 66 69 Respiratory Rate 25 H 18 17 Blood Pressure 122/62 111/53 L 118/56 L Oxygen Delivery Method 05/28/25 04:00 05/28/25 05:00 05/28/25 06:00 Pulse Rate 73 68 66 Respiratory Rate 30 H 21 18 Blood Pressure 170/81 H 152/84 H 127/63 Oxygen Delivery Method 05/28/25 07:00 Pulse Rate Respiratory Rate Blood Pressure Oxygen Delivery Method Room Air Oxygen Delivery Method Room Air Oxygen Flow Rate 0 Const General: cooperative, healthy appearing and comfortable Orientation: alert, oriented x3, oriented to person and oriented to place [facility] Head: normal to inspection Mouth: oral mucosae normal and tongue normal Chest Chest: normal inspection of the chest and normal palpation of entire chest wall Resp Effort & Inspection: normal respiratory effort Auscultation: clear to auscultation bilaterally Percussion: percussion normal Cardio Palpation: normal PMI Heart Sounds: S1 normal, S2 normal and murmur Bruits: carotid bruit GI Inspection: normal to inspection Percussion: normal to percussion Back/Spine/Pelvis Back: normal to inspection Skin General: no rashes or lesions noted Neuro General: patient alert and patient oriented x3 Extrem General: normal to inspection Psych Appearance: grossly normal and well kempt Objective Labs 05/27/25 10:23 05/27/25 10:23 Labs: Laboratory Results - last 24 hr 05/27/25 05/27/25 05/27/25 10:23 10:30 13:35 WBC 9.6 RBC 4.42 Hgb 13.9 Hct 40.6 MCV 91.9 MCH 31.5 MCHC 34.2 RDW 13.4 Plt Count 296 Neut % (Auto) 60.2 Lymph % (Auto) 29.2 [place] % (Auto) 8.6 Eos % (Auto) 1.2 L Baso % (Auto) 0.8 Neut # (Auto) 5800 Lymph # (Auto) 2800 [place] # (Auto) 800 Eos # (Auto) 100 Baso # (Auto) 100 PT 11.7 INR 1.0 APTT 29 Sodium 140 Potassium 3.9 Chloride 105 Carbon Dioxide 25 BUN 16 Creatinine 1.00 Estimated GFR 58 L BUN/Creatinine Ratio 16.0 Glucose 110 H Calcium 9.3 Magnesium 2.0 Total Bilirubin 0.6 AST 37 H ALT 18 Alkaline Phosphatase 103 Total Creatine Kinase 80 Troponin I 0.270 H* 0.394 H* NT-Pro-B Natriuret Pep 1540 H Total Protein 8.6 H Albumin 4.4 Globulin 4.2 H Albumin/Globulin Ratio 1.0 Triglycerides Cholesterol LDL Cholesterol, Calc HDL Cholesterol Lipase 129 TSH 9.37 H Nasal Screen MRSA (PCR) 05/27/25 05/27/25 05/28/25 14:41 18:59 03:15 WBC RBC Hgb Hct MCV MCH MCHC RDW Plt Count Neut % (Auto) Lymph % (Auto) [place] % (Auto) Eos % (Auto) Baso % (Auto) Neut # (Auto) Lymph # (Auto) [place] # (Auto) Eos # (Auto) Baso # (Auto) PT INR APTT 226 H* D 82 H* D Sodium Potassium Chloride Carbon Dioxide BUN Creatinine Estimated GFR BUN/Creatinine Ratio Glucose Calcium Magnesium Total Bilirubin AST ALT Alkaline Phosphatase Total Creatine Kinase Troponin I 0.557 H* 0.622 H* NT-Pro-B Natriuret Pep Total Protein Albumin Globulin Albumin/Globulin Ratio Triglycerides 241 H Cholesterol 271 H LDL Cholesterol, Calc 177 H HDL Cholesterol 46 Lipase TSH Nasal Screen MRSA (PCR) Not detected [facility] Medical History Major depression Peripheral vascular disease Abnormal ankle brachial index (ERASTO) ICAO (internal carotid artery occlusion) Poor appetite Constipation GERD (gastroesophageal reflux disease) Open ankle wound 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 Subsequently she developed chest pains with minimal exertion. She came to the emergency room yesterday morning with severe crushing chest pains. She had elevated troponin along with EKG changes. She was admitted to the hospital and was started on nitroglycerin drip and heparin drip. Admitting diagnosis was non ST-elevation myocardial infarction hemodynamically stable responsive to analgesics and nitroglycerin drip. Serial troponin was performed which demonstrated dragan. Patient remained stable in the ICU. I saw in the morning and took a detailed clinical history and examined her. I reviewed her treatment plan and proposed several options to her. In summary she is a 80-year-old postmenopausal family history of heart disease hyperlipidemia, peripheral vascular disease, carotid atheroma with right-sided occlusion, no history of stroke. She presents with non ST elevation myocardial infarction hemodynamically stable. We will be proposing delayed invasive strategy to improve quality of life as she has had exertional chest discomfort several weeks prior to admission. I suspect she has near occlusive coronary artery disease and her chest pain symptoms can be ameliorated by angioplasty. She lives alone and will definitely improve her quality of life. Echocardiogram performed in the hospital demonstrated ejection fraction of 50-55% with no regional wall motion abnormalities. There is LV remodeling with worsening of mitral regurgitation. No clear evidence of diastolic dysfunction with elevated filling pressures. 1. Non ST-elevation myocardial infarction-on heparin and nitroglycerin drip clinically stable and pain-free at this point. I plan to take her to the dental lab technician tomorrow morning. NPO after midnight. 2. Hyperlipidemia patient should be on high-dose statins given the extent of her vascular disease. 3. Hypothyroidism elevated TSH levels. 4. Anxiety and depression. Plan: Keep her in the ICU. Transfer her tomorrow morning to dental lab technician at [facility]. Direct admission under my name Dr. Crenshaw. Please keep her NPO continue with nitroglycerin and heparin drip I will stop at the time of procedure. Continue with other medications. Continue with dual antiplatelet therapy aspirin and Plavix. Time-Based Coding :: [TOTAL MINUTES] spent with patient and on the chart (including review of chart, obtaining history, exam, reviewing outside data, placing orders, documenting exam and treatment plan, and counseling patient) on [DATE].
[2025-05-28] MEDS: METOPROLOL ER 25 MG TABLET PO (08:42)
[2025-05-28] MEDS: CLOPIDOGREL 75 MG TABLET PO (08:43)
[2025-05-28] MEDS: ASPIRIN EC 81 MG TABLET PO (08:43)
[2025-05-28 11:25] LABS: PTT Partial Thromboplastin Tim 57 SECONDS (25.1-36.5)
--- NOTE | 2025-05-28 11:32 | P.PN_ITS ---
Subjective Subjective Interval history: S: Doing well, no chest pain or dyspnea. No arrhythmia overnight. Exam Vital Signs (past 8 hours): - 05/28/25 04:00 05/28/25 05:00 05/28/25 06:00 Temperature Pulse Rate 73 68 66 Respiratory Rate 30 H 21 18 Blood Pressure 170/81 H 152/84 H 127/63 Pulse Oximetry Oxygen Delivery Method Oxygen Flow Rate 05/28/25 07:00 05/28/25 08:00 05/28/25 08:42 Temperature 97.6 F Pulse Rate 70 73 Respiratory Rate 21 Blood Pressure 160/78 H 127/63 Pulse Oximetry 97 Oxygen Delivery Method Room Air Oxygen Flow Rate 0 05/28/25 09:00 05/28/25 10:00 05/28/25 11:00 Temperature Pulse Rate 71 77 72 Respiratory Rate 24 22 20 Blood Pressure 143/73 H 125/57 L 113/58 L Pulse Oximetry 97 98 Oxygen Delivery Method Oxygen Flow Rate 0 0 Oxygen Delivery Method Room Air Oxygen Flow Rate 0 Narrative Exam Narrative: NAD, alert and oriented. Fluent speech. Lungs are clear, normal rate and effort. Heart is regular, no murmur gallop or rub. Abdomen is soft, non distended. Extremities are free of edema. Objective ECG Impression: Intervals [place] Rate: 70 P: 44 VA: 194 QRS: -32 QRSD: 94 T: 38 QT: 402 QTc: 434 Interpretive Statements Normal sinus rhythm Left axis deviation Imaging Echo: Radiologist's impression: The ejection fraction is estimated to be 55-60%. Compared to the prior echo study, there has been an increase in the severity of mitral regurgitation. The mitral regurgitant jet is eccentrically directed. There is no other significant valvular heart disease. Labs 05/27/25 10:23 05/27/25 10:23 Labs: Laboratory Results - last 24 hr 05/27/25 05/27/25 05/27/25 10:30 13:35 14:41 APTT Troponin I 0.394 H* Triglycerides Cholesterol LDL Cholesterol, Calc HDL Cholesterol TSH 9.37 H Nasal Screen MRSA (PCR) Not detected 05/27/25 05/28/25 18:59 03:15 APTT 226 H* D 82 H* D Troponin I 0.557 H* 0.622 H* Triglycerides 241 H Cholesterol 271 H LDL Cholesterol, Calc 177 H HDL Cholesterol 46 TSH Nasal Screen MRSA (PCR) PFSH Medical History Major depression Peripheral vascular disease Abnormal ankle brachial index (ERASTO) ICAO (internal carotid artery occlusion) Poor appetite Constipation GERD (gastroesophageal reflux disease) Open ankle wound 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 Non ST-elevation myocardial infarction-on heparin and nitroglycerin drip clinically stable and pain-free. Present on admission and stable. 2. Hyperlipidemia patient should be on high-dose statins given the extent of her vascular disease. Stable. 3. Hypothyroidism elevated TSH levels. Stable. 4. Anxiety and depression. Stable. Plan: -seen by Cardiology with plans for angiogram. -anticipate transfer to [facility] for this. DNR Time-Based Coding :: [TOTAL MINUTES] spent with patient and on the chart (including review of chart, obtaining history, exam, reviewing outside data, placing orders, documenting exam and treatment plan, and counseling patient) on [DATE].
--- NOTE | 2025-05-28 12:58 | CM.DANOTE ---
Initial DCP Assessment Visit Note Reviewed EMR and team rounds for pt's medical status and updates. Met with pt at bedside to introduce self and role. Pt was found to be resting comfortably in bed, no distress or pain at this time. Pt lives independently in her own home with her dogs. She is pending transfer to [facility] either tonight or tomorrow am for dairy and food laboratory assistant angiogram. No CM needs are identified at this time. Payor: No local PCP Pt is a 80 year-old F with a hx of HTN who presented to the ED yesterday afternoon with c/o intermittent heart pains for the last 2-weeks. She shared that yesterday the chest pain intensified to 9/10, however it did improve with aspirin. She was found to have elevated troponins, had positive indicators on her EKG and was diagnosed with having had a non-STEMI heart attack. Cardiology was consulted today, the plan is for transfer to [facility] for dairy and food laboratory assistant angiogram either this evening or tomorrow am. Monitoring for any further evolving needs prior to her departure. Discharge Planning/Care Management CM Discharge Assessment Start: 05/27/25 11:31 Freq: Status: Active Protocol: Document 05/28/25 12:56 DPL (Rec: 05/28/25 12:58 DPL [id number]) Discharge Planning Assessment Assigned Discharge QUANG Lam Hydrographical Technical Officer Advance Directives? No History Provided By Patient,Medical Record Has Patient been No admitted in last 30 days? Prior Living House Arrangements Household Members none Type of Drives own vehicle transporation used prior to admit Independent with ADL Yes 's Is patient alert and Yes oriented? Comment N/A Caregiver for No Another Comment She does have dogs that she is concerned about, however she's now found care for them while she is inpt. Comment Transfer Discharge Plan Transfer to Higher Level of Care Referrals Initiated None needed Whiteboard Updated Yes in Patient Room with name and ext. # of E Marketing Specialist Review Status In Process Please Provide Date 05/28/25 Initial DC Assessment Was Performed
--- NOTE | 2025-05-28 13:49 | PM.DS.1 ---
History of Present Illness History of Present Illness Chief complaint: Possible Heart attack Narrative: From H&P: This is a 80-year-old female with major depression, peripheral vascular disease, COPD, CKD, history of cerebral aneurysm, hypothyroidism and hypertension who presents with apparent unstable angina. She describes chest pain when walking her dogs starting 1 week ago. This resolves with 5 minutes of seated rest. The pain is in the center of her chest and radiates into both arms and to her mouth. Her records describe a history of coronary artery disease stenting which she denies. She is a known vasculopath with what she describes as stenting to an artery feeding her right hand and also in both legs. She takes Plavix, metoprolol and Wellbutrin but is not on aspirin or a statin. She does not recall why or when she stopped the atorvastatin. Her intial EKG shows subtle ST segment depression in leads V3 through V5 initially and then on her 2nd EKG the ST segment in V1 and V2 is subtly increased. The Troponin is 0.27 with a BNP of 1540. Per ED discussion with document control clerk Dr. Crenshaw she will be placed on IV nitroglycerin drip and IV heparin drip for NSTEMI. Complicating and delaying her decision process on what to do if this is indeed a STEMI is a distinctive overlay of major depression. She wants to be very clear that she is DNR and does not want her life prolonged by any intervention. Discharge Providers Provider Date of admission: 05/27/25 11:28 Discharge Date: 05/28/25 Primary care physician: Nyasia Castillo MD Consults: Dr. Crenshaw, cardiology. Discharge provider: Marcelino Rojo MD Summary Hospital Course Discharge Diagnosis: 1. Non ST-elevation myocardial infarction-on heparin and nitroglycerin drip clinically stable and pain-free. Present on admission and stable. 2. Hyperlipidemia patient should be on high-dose statins given the extent of her vascular disease. Stable. 3. Hypothyroidism elevated TSH levels. Stable. 4. Anxiety and depression. Stable. 5. MR on ECHO, stable. Hospital Course: See H&P for presentation, by Dr. Gomes. She has known history of carotid artery disease, PVD, CKD and a previous cerebral aneurysm. She also has chronic hypertension and presented with chest pain. She would elevations of troponin and a nonacute 12 lead consistent with NSTEMI. She was discussed with Cardiology, and placed on heparin and nitro drips. She was also given dual antiplatelet therapy and beta blockade as well as statin dosing. Her troponins trended up overnight, and she was discussed with Cardiology in the morning of May 28. He recommended transfer for coronary angiogram and possible PCI. The patient was in agreement and the patient was transfer to [facility] after being accepted. She remained chest pain-free overnight her troponins were 0.270, 0.557, and 0.622. Status at Discharge Cognitive/behavioral status at discharge: oriented Functional status at discharge: independent ambulation Overall status at discharge: patient is back to baseline Time Spent with Patient Time spent: Greater than 30 minutes Exam Vital Signs (past 8 hours): - 05/28/25 06:00 05/28/25 07:00 05/28/25 08:00 Temperature 97.6 F Pulse Rate 66 70 Respiratory Rate 18 21 Blood Pressure 127/63 160/78 H Pulse Oximetry 97 Oxygen Delivery Method Room Air Oxygen Flow Rate 0 05/28/25 08:42 05/28/25 09:00 05/28/25 10:00 Temperature Pulse Rate 73 71 77 Respiratory Rate 24 22 Blood Pressure 127/63 143/73 H 125/57 L Pulse Oximetry 97 Oxygen Delivery Method Oxygen Flow Rate 0 05/28/25 11:00 05/28/25 11:30 05/28/25 12:00 Temperature 97.6 F Pulse Rate 72 Respiratory Rate 20 Blood Pressure 113/58 L Pulse Oximetry 98 Oxygen Delivery Method Room Air Oxygen Flow Rate 0 05/28/25 12:00 05/28/25 13:00 Temperature Pulse Rate 70 78 Respiratory Rate 28 H 16 Blood Pressure 135/63 127/67 Pulse Oximetry Oxygen Delivery Method Oxygen Flow Rate 0 Oxygen Delivery Method Room Air Oxygen Flow Rate 0 Narrative Exam Narrative: NAD, alert and oriented. Fluent speech. Lungs are clear, normal rate and effort. Heart is regular, no murmur gallop or rub. Abdomen is soft, non distended. Extremities are free of edema. Objective ECG Impression: Intervals [place] Rate: 70 P: 44 MD: 194 QRS: -32 QRSD: 94 T: 38 QT: 402 QTc: 434 Interpretive Statements Normal sinus rhythm Left axis deviation Imaging Chest x-ray: Radiologist's impression: No acute cardiopulmonary abnormality is seen. Echo: Radiologist's impression: The ejection fraction is estimated to be 55-60%. Compared to the prior echo study, there has been an increase in the severity of mitral regurgitation. The mitral regurgitant jet is eccentrically directed. There is no other significant valvular heart disease. Labs 05/27/25 10:23 05/27/25 10:23 Labs: Laboratory Results - last 24 hr 05/27/25 05/27/25 05/27/25 10:30 13:35 14:41 APTT Troponin I 0.394 H* Triglycerides Cholesterol LDL Cholesterol, Calc HDL Cholesterol TSH 9.37 H Nasal Screen MRSA (PCR) Not detected 05/27/25 05/28/25 05/28/25 18:59 03:15 10:55 APTT 226 H* D 82 H* D 57 H D Troponin I 0.557 H* 0.622 H* Triglycerides 241 H Cholesterol 271 H LDL Cholesterol, Calc 177 H HDL Cholesterol 46 TSH Nasal Screen MRSA (PCR) PFSH Medical History Major depression Peripheral vascular disease Abnormal ankle brachial index (ERASTO) ICAO (internal carotid artery occlusion) Poor appetite Constipation GERD (gastroesophageal reflux disease) Open ankle wound 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 NSTEMI, present on admission and active. Plan of Treatment: Transfer to [facility] on heparin and nitro drips for coronary angiogram. Discharge Plan Discharge Plan Patient Disposition: [facility] Other facility: [facility] (Dr. Dunbar and Flower) Discharge Data Primary Care Provider: Nyasia Castillo
[2025-05-28 17:48] LABS: PTT Partial Thromboplastin Tim 50 SECONDS (25.1-36.5)
[2025-05-28] MEDS: MIRTAZAPINE 15 MG TABLET 7.5 MG PO (22:23)
[2025-05-28] MEDS: ATORVASTATIN 20 MG TABLET 80 MG PO (22:23)
--- NOTE | 2025-05-28 23:19 | PC.NURSE ---
Patient discharged to [facility] ICU, nursing report given to Guru RN and Erlinda RN with ALS transport. Heparin gtt at 7 units/kg/hr and Nitroglycerin at 10 mcg/minute infusing when leaving.
== END 2025-05-28 23:14 | disposition short-term general hospital (02) | DRG 282 ==
LOC: ED 11:28 → AC 11:29 → ICU 11:48
PROVIDERS: Internal Medicine; Admitting Provider Family Medicine; Emergency Provider Emergency Medicine; PCP Family Medicine; Referring Provider Emergency Medicine; Visit Provider Hospitalist
DX: I21.4 Non-ST elevation (NSTEMI) myocardial infarction (principal); I73.9 Peripheral vascular disease, unspecified; F32.9 Major depressive disorder, single episode, unspecified; J44.9 Chronic obstructive pulmonary disease, unspecified; E03.9 Hypothyroidism, unspecified; E78.5 Hyperlipidemia, unspecified; F41.9 Anxiety disorder, unspecified; I34.0 Nonrheumatic mitral (valve) insufficiency; I77.9 Disorder of arteries and arterioles, unspecified; I10 Essential (primary) hypertension; Z66 Do not resuscitate; Z95.820 Peripheral vascular angioplasty status with implants and grafts; Z86.79 Personal history of other diseases of the circulatory system
CPT/HCPCS: 36415; 71045; 80053; 80061; 82550; 83690; 83735; 83880; 84443; 84484; 85025; 85610; 85730; 87797; 93005; 93306; 96365; 96368; 99284; 99291; J1644; J2270

== ENCOUNTER → 2025-06-02 14:50 | Outpatient (CLI) | payer MEDICARE, SELFPAY ==
[2025-05-27 13:10] VITALS: BMI 24.7
== END ==
LOC: WC 14:52
PROVIDERS: PCP Family Medicine; Referring Provider Family Medicine; Visit Provider Surgery
DX: T81.89XD Other complications of procedures, not elsewhere classified, subsequent encounter (principal); S91.002D Unspecified open wound, left ankle, subsequent encounter; I12.9 Hypertensive chronic kidney disease with stage 1 through stage 4 chronic kidney disease, or unspecified chronic kidney disease; N18.30 Chronic kidney disease, stage 3 unspecified; I21.3 ST elevation (STEMI) myocardial infarction of unspecified site; Z79.01 Long term (current) use of anticoagulants; E78.5 Hyperlipidemia, unspecified; J44.9 Chronic obstructive pulmonary disease, unspecified
CPT/HCPCS: 99213; 99214

== ENCOUNTER 2025-08-26 10:42 | Emergency (ER) | payer MEDICARE, SELFPAY ==
[2025-05-27 13:10] VITALS: BMI 24.7
[2025-08-26] VITALS (15 sets, daily range): BP systolic 140–210; BP diastolic 64–128; PULSE 68–85; RESP 12–27; TEMP 36.5–36.7; O2SAT 96–100; BMI 23.6
--- NOTE | 2025-08-26 10:50 | EKG_ITS ---
[address] [id number] [address] [address] Test Date: 2025-08-26 Pat Name: Mindi Benson Department: Room: Gender: Female [place] Shade Joiner: MARITZA : 1945 Requested By: Order Number: [id number] Reading MD: Christopher Black MD Measurements Intervals [place] Rate: 84 P: 53 ID: [id number] QRS: -54 QRSD: 98 T: 77 QT: 372 QTc: 439 Interpretive Statements Normal sinus rhythm Left anterior fascicular block Septal infarct , age undetermined Electronically Signed On 08-26-2025 16:44:26 PDT by Christopher Black MD
--- NOTE | 2025-08-26 11:05 | DI.RAD.S_ITS ---
PROCEDURE: XR CHEST 1V INDICATIONS: Chest Pain TECHNIQUE: One view of the chest was acquired. COMPARISON: [facility], CR, XR CHEST 1V, 05/27/2025, 10:15. [facility], CR, XR CHEST 1V, 01/28/2019, 10:52. FINDINGS: Surgical changes and devices: None. Lungs and pleura: Lungs are clear. No pleural effusions or pneumothorax. Mediastinum: Mediastinal contours appear normal. Heart size is normal. Bones and chest wall: No suspicious bony lesions. Overlying soft tissues appear unremarkable. IMPRESSION: No acute cardiopulmonary abnormality is seen. Dictated by: Hiren Pretty M.D. on 08/26/2025 at 11:25 Approved by: Hiren Pretty M.D. on 08/26/2025 at 11:25
[2025-08-26 11:36] LABS: Add Manual Diff / Slide Review YES; Hematocrit 41.3 % (36-46); Hemoglobin 14.0 g/dL (12.0-16.0); Mean Corpuscular HGB Conc 34.0 % (30-36); Mean Corpuscular Hemoglobin 30.6 PG (26-34); Mean Corpuscular Volume 89.8 fL (80-100); Platelet Count 247 X10^3/uL (150-400)
[2025-08-26 11:40] LABS: INR 1.1 (0.9-1.3); Prothrombin Time 11.9 SECONDS (9.4-12.5)
--- NOTE | 2025-08-26 11:40 | ED.CHESTPAIN ---
HPI - Chest Pain General Chief Complaint: Chest Pain Stated Complaint: going to have a heart attack. can't sleep Time Seen by Provider: 08/26/25 11:30 Source: patient Mode of arrival: Family Vehicle Limitations: no limitations History of Present Illness HPI narrative: Patient is a 80-year-old female with recent stent to her left circumflex artery in May 2025, child was hyperlipidemia hypothyroidism and depression presenting today with ongoing chest pain. She reports that since her heart attack in May she only been sitting in her chair. Every time she gets up to move she has chest pain and shortness of breath. She is having chest pain at rest now which is not unusual but it is also going into her left shoulder blade which she says is new. Does not have significant pressure or pain at this moment. She is extremely sad and depressed he has been taking Wellbutrin but does not feel like it is working anymore she can not get into her primary care provider's office until October. She has no thoughts of suicide or homicidal, but feels like her time on earth has passed. Patient also reports that every morning she takes her levothyroxine she feels dizzy cut it in half and reports that has helped. Related Data Home Medications ?Medication ?Instructions ?Recorded ?Confirmed aspirin 81 mg tablet,delayed 81 mg PO QPM 01/28/19 06/26/25 release albuterol sulfate 90 mcg/actuation 1 inh inhalation Q4HR PRN 02/24/23 06/26/25 aerosol inhaler Shortness Of Breath atorvastatin 40 mg tablet 40 mg PO DAILY 06/26/25 06/26/25 Previous Rx's ?Medication ?Instructions ?Recorded bupropion HCl 150 mg 24 hr tablet, 150 mg PO QAM #90 tabs 09/19/24 extended release (Wellbutrin XL) levothyroxine 100 mcg tablet 100 mcg PO DAILY #100 tabs 06/05/25 famotidine 20 mg tablet (Pepcid) 20 mg PO DAILY #60 tabs 06/09/25 ondansetron HCl 4 mg tablet 4 mg PO Q6-8H PRN nausea/vomiting 06/26/25 #30 tabs clopidogrel 75 mg tablet 75 mg PO DAILY #90 tabs 07/02/25 mirtazapine 7.5 mg tablet 7.5 mg PO BEDTIME PRN insomnia #90 08/06/25 tabs Allergies Allergy/AdvReac Type Severity Reaction Status Date / Time ampicillin Allergy Unknown Verified 08/26/25 11:07 Patient History Medical History Major depression Peripheral vascular disease Abnormal ankle brachial index (ERASTO) ICAO (internal carotid artery occlusion) Poor appetite Constipation GERD (gastroesophageal reflux disease) Open ankle wound 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 Mother Respiratory disease Cerebral aneurysm Brother In good health Social History details: Single household members: none lives independently: Yes caregiver/support person: Yes pets and animals: Yes education level: college occupational status: other current occupational exposures/hazards: No Previous occupational history: [employer] alcohol intake: never substance use type: does not use Smoking Status: Former smoker tobacco type: cigarettes alcohol intake frequency: holidays/special occasions only Exam Initial Vital Signs Initial Vital Signs: Vital Signs Temperature 97.7 F 08/26/25 10:47 Pulse Rate 81 08/26/25 10:47 Respiratory Rate 17 08/26/25 10:47 Blood Pressure 192/88 H 08/26/25 10:47 Pulse Oximetry 99 08/26/25 10:47 Oxygen Delivery Method Room Air 08/26/25 10:47 GENERAL: Alert 80-year-old female very tearful and in no acute distress. HEENT: Head atraumatic,EOMI, pupils reactive, face symmetric, moist mucous membranes CARDIOVASCULAR: Regular rate and rhythm without murmurs, rubs or gallops. Chest pain not reproduced with left shoulder movement RESPIRATORY: Breath sounds equal bilaterally, no wheezes rales or rhonchi. ABDOMEN: Soft, nontender. Normoactive bowel sounds all 4 quadrants. No guarding or rebound. EXTREMITIES: Normal range of motion, no clubbing or edema. Neurovascularly intact NEUROLOGICAL: Alert and oriented x4.Normal gait and speech. Cranial nerves II through XII grossly intact. SKIN: Warm, dry, no laceration, no petechiae, no rashes or lesions. Course Orders Ordered: ED Orders 08/26/25 11:05 XR chest 1V Stat EKG-12 Lead Stat 08/26/25 11:14 Consult to [facility] [place] - [place] Stat 08/26/25 11:15 Complete Blood Count AUTO DIFF Stat Comprehensive Metabolic Panel Stat D Dimer Stat Lipase Stat Magnesium Stat NT-proBNP (BNP-Adult 18+) Stat PTT Partial Thromboplastin Damon Stat Prothrombin Time INR Stat TSH [Thyroid Stimulating Hormone] Stat Troponin & CK Cardiac Panel Stat 08/26/25 11:52 Consult to [facility] [place] Stat 08/26/25 13:15 Trop I [Troponin I] Stat Discontinued Medications Aspirin (Aspirin 81 Mg Chew Tab) 324 mg PO NOW ONE Stop: 08/26/25 11:06 Last Admin: 08/26/25 12:01 Dose: 243 mg Documented By: EB Vital Signs Vital signs: Vital Signs - 8 hr 08/26/25 10:47 08/26/25 10:48 08/26/25 10:49 Temperature 97.7 F Pulse Rate 81 85 81 Respiratory Rate 17 24 18 Blood Pressure 192/88 H Pulse Oximetry 99 99 Oxygen Delivery Method Room Air 08/26/25 10:49 08/26/25 11:00 08/26/25 11:00 Temperature Pulse Rate 79 Respiratory Rate 22 Blood Pressure 192/88 H 175/68 H Pulse Oximetry 97 Oxygen Delivery Method 08/26/25 11:30 08/26/25 11:30 08/26/25 12:00 Temperature Pulse Rate 73 73 Respiratory Rate 16 12 Blood Pressure 140/64 Pulse Oximetry 96 96 Oxygen Delivery Method 08/26/25 12:00 08/26/25 12:30 08/26/25 12:31 Temperature Pulse Rate 78 75 Respiratory Rate 27 H 20 Blood Pressure 169/74 H Pulse Oximetry 99 99 Oxygen Delivery Method 08/26/25 12:50 08/26/25 12:50 08/26/25 12:51 Temperature Pulse Rate 72 71 Respiratory Rate 13 16 Blood Pressure 210/83 H Pulse Oximetry 98 100 Oxygen Delivery Method 08/26/25 12:51 08/26/25 13:00 08/26/25 13:00 Temperature Pulse Rate 71 Respiratory Rate 14 Blood Pressure 195/85 H 178/80 H Pulse Oximetry 99 Oxygen Delivery Method 08/26/25 13:30 08/26/25 13:30 08/26/25 14:00 Temperature Pulse Rate 68 Respiratory Rate 13 Blood Pressure 152/74 H 168/128 H Pulse Oximetry 100 Oxygen Delivery Method 08/26/25 14:00 08/26/25 14:30 08/26/25 14:30 Temperature Pulse Rate 71 72 Respiratory Rate 24 24 Blood Pressure 175/81 H Pulse Oximetry 98 97 Oxygen Delivery Method 08/26/25 14:58 Temperature 98.0 F Pulse Rate 70 Respiratory Rate 17 Blood Pressure 177/80 H Pulse Oximetry 99 Oxygen Delivery Method Room Air MDM - Chest Pain Lab Data 08/26/25 11:15 08/26/25 11:15 Labs: Lab Results 08/26/25 08/26/25 Range/Units 11:15 13:15 WBC 6.8 (4.5-11.0) X10^3/uL RBC 4.59 (4.0-5.2) X10^6/uL Hgb 14.0 (12.0-16.0) g/dL Hct 41.3 (36-46) % MCV 89.8 (80-100) fL MCH 30.6 (26-34) PG MCHC 34.0 (30-36) % RDW 13.1 (11.6-14.8) % Plt Count 247 (150-400) X10^3/uL Neut % (Auto) Not Reportable Lymph % (Auto) Not Reportable Pershing % (Auto) Not Reportable Eos % (Auto) Not Reportable Baso % (Auto) Not Reportable Lymph # (Auto) Not Reportable Pershing # (Auto) Not Reportable Baso # (Auto) Not Reportable Total Counted 100 Seg Neutrophils % 62.0 (38-70) % Lymphocytes % (Manual) 34.0 (25-45) % Monocytes % (Manual) 4.0 (2-11) % Neutrophils # (Manual) 4216 (2200-1482) /uL RBC Morphology Normal morphology PT 11.9 (9.4-12.5) SECONDS INR 1.1 (0.9-1.3) APTT 29 (25.1-36.5) SECONDS D-Dimer 676 H (<500) ng/ml Sodium 137 (137-145) mmol/L Potassium 4.1 (3.4-5.1) mmol/L Chloride 102 (98-107) mmol/L Carbon Dioxide 29 (22-32) mmol/L BUN 19 H (7-17) mg/dL Creatinine 0.95 (0.52-1.04) mg/dL Estimated GFR > 60 (>60) mL/min BUN/Creatinine Ratio 20.0 (6-22) Glucose 113 H (70-99) mg/dL Calcium 9.6 (8.4-10.2) mg/dL Magnesium 1.8 (1.6-2.3) mg/dL Total Bilirubin 0.4 (0.2-1.3) mg/dL AST 84 H (14-36) IU/L ALT 64 H (<35) IU/L Alkaline Phosphatase 206 H (38-126) U/L Total Creatine Kinase 28 L (30-135) U/L Troponin I < 0.012 < 0.012 (0.01-0.034) ng/mL NT-Pro-B Natriuret Pep 214 (<450) pg/mL Total Protein 8.1 (6.3-8.2) g/dL Albumin 4.1 (3.5-5.0) g/dL Globulin 4.0 (1.7-4.1) g/dL Albumin/Globulin Ratio 1.0 (1.0-2.8) Lipase 136 (23-300) U/L TSH 4.95 H (0.47-4.68) uIU/mL Imaging Data Chest x-ray: Radiologist's Impression: PROCEDURE: XR CHEST 1V INDICATIONS: Chest Pain TECHNIQUE: One view of the chest was acquired. COMPARISON: [facility], , XR CHEST 1V, 05/27/2025, 10:15. [facility], , XR CHEST 1V, 01/28/2019, 10:52. FINDINGS: Surgical changes and devices: None. Lungs and pleura: Lungs are clear. No pleural effusions or pneumothorax. Mediastinum: Mediastinal contours appear normal. Heart size is normal. Bones and chest wall: No suspicious bony lesions. Overlying soft tissues appear unremarkable. IMPRESSION: No acute cardiopulmonary abnormality is seen. Dictated by: Hiren Pretty M.D. on 08/26/2025 at 11:25 ECG Data Attestation: I personally reviewed and interpreted this ECG as follows: Prior ECG tracings: available for review Interpretation: Normal sinus rhythm rate 84 MO interval 186 QRS [address] changes no T-wave inversions improved from prior MDM Narrative Medical decision making narrative: MDM CC: Chest pain with left shoulder Complicating co-morbidities: Recent left circumflex drug-eluting stent Data collected from: Patient Medical records reviewed: [facility] records reviewed Differential considered: Acute coronary syndrome cholelithiasis cholecystitis Exam documented above, pertinent findings include: Alert tearful 72-year-old female no reproducible pain with moving her shoulder Lab Test results independently reviewed as above. Pertinent findings: Troponin negative x2 CBC no leukocytosis no anemia CMP no electrolyte abnormalities Bilirubin 0.4 AST 84 ALT 64 alk-phos 206 previously normal, however in 2022 they were elevated and higher. Independently reviewed EKG as above Imaging studies independently reviewed: Consultations: [id number] Dr. Giron updated patient's symptoms test results recommends that patient needs to stay and have a nuclear stress test at least Treatments: None Re-evaluations: Social work evaluation PCP appointment got moved up to next week. Patient is no longer tearful and feeling better Discussion: Patient is a 72-year-old female history of coronary artery disease with recent stent placement presenting today with chest pain. She has had a pretty sedentary life for the past couple of months. She is also suffering from ongoing depression. She has no suicidal ideation no need for mental health placement at this time. Cardiac workup is negative, no EKGs changes 2- troponins. Cardiology consulted recommended admission for stress test. However patient has multiple dogs at home she would just like to go home. She understands that she is leaving against medical advice she will follow-up with PCP next week she will return as needed. She is Patient does have elevated liver enzymes but normal bilirubin this is happened about 4 she has no Antoine's sign no nausea or vomiting. I think unrelated today The patient is clinically sober, free from distracting injury, appears to have intact insight, judgment and reason. Does not meet criteria for involuntary hospitalization. Patient has the capacity to make decisions. The patient is also not under any duress to leave the hospital. In this scenario, it would be battery to subject the patient to treatment against his/her will. I have voiced my concerns for the patient's health given that a full evaluation and treatment had not occurred. I have discussed the need for continued evaluation to determine if there symptoms are caused by a condition that present risk of or morbidity. Risk including but not limited to , permanent disability, prolonged hospitalization, prolonged illness, were discussed. I tried offering alternative options in hopes that the patient might be amenable to partial evaluation and treatment which would be medically beneficial to the patient, though the patient declined my options and insisted on leaving. Because I have been unable to convince the patient to stay I answered all of their questions about the condition and ask them to return to the ED as soon as possible to complete their evaluation, especially if their symptoms worsen or do not improve. I emphasized that leaving against medical advice did not preclude returning here for further evaluation. I asked the patient to return if they change their mind about the further evaluation and treatment. I strongly encouraged the patient to return to this emergency department or any emergency department at any time, particularly with worsening symptoms. Discharge Plan Departure Patient Disposition: Left Against Medical Advice Clinical Impression: Chest pain Instructions: DI for Angina Activity Restrictions/Additional Instructions: You are leaving against medical advice today. It was recommended that you stay and have a stress test. However your blood work today is overall reassuring. I also recommend that you do Cardiopulmonary Rehab. Also try getting outside once daily for at least 5 minutes. Follow-up with primary care provider next week as scheduled Dr. Castillo 09/03/25 @ 9:15am Return to the emergency department if you should have any new or worsening chest pain or shortness or breath or any worsening symptoms Prescriptions: No Action famotidine [Pepcid] 20 mg tablet 20 mg PO DAILY Qty: 60 0RF atorvastatin 40 mg tablet 40 mg PO DAILY ondansetron HCl 4 mg tablet 4 mg PO Q6-8H PRN (Reason: nausea/vomiting) Qty: 30 1RF bupropion HCl [Wellbutrin XL] 150 mg tablet extended release 24 hr 150 mg PO QAM Qty: 90 2RF levothyroxine 100 mcg tablet 100 mcg PO DAILY Qty: 100 1RF Rx Instructions: take 1 tab, 100mcg daily by mouth, except Mondays take 50mcg clopidogrel 75 mg tablet 75 mg PO DAILY Qty: 90 4RF mirtazapine 7.5 mg tablet 7.5 mg PO BEDTIME PRN (Reason: insomnia) Qty: 90 1RF aspirin 81 mg Tablet,Delayed Release (Dr/Ec) 81 mg PO QPM albuterol sulfate 90 mcg/actuation HFA aerosol inhaler 1 inh INHALATION Q4HR PRN (Reason: Shortness Of Breath) Referrals: Nyasia Castillo MD [Primary Care Provider, Family Practice] Stand Alone Forms: Patient Portal/API, Against Med. Advice (Armenian)
[2025-08-26 11:43] LABS: PTT Partial Thromboplastin Tim 29 SECONDS (25.1-36.5)
[2025-08-26] MEDS: ASPIRIN 81 MG CHEW TAB 324 MG PO (12:01)
[2025-08-26 12:05] LABS: Lymphocytes Percent Manual 34.0 % (25-45); Monocytes Percent Manual 4.0 % (2-11); Neutrophils Absolute Manual 4216 /uL (3000-5900); RBC Morphology Normal Morphology; Segmented Neutrophils Percent 62.0 % (38-70); Total Cells Counted 100
[2025-08-26 12:14] LABS: Alanine Aminotransferase 64 IU/L (<35); Albumin 4.1 g/dL (3.5-5.0); Albumin Globulin Ratio 1.0 (1.0-2.8); Alkaline Phosphatase 206 U/L (38-126); Blood Urea Nitrogen 19 mg/dL (7-17); Calcium 9.6 mg/dL (8.4-10.2); Carbon Dioxide 29 mmol/L (22-32); Chloride 102 mmol/L (98-107); Creatine Kinase 28 U/L (30-135); Estimated Glomerular Filt Rate > 60 mL/min (>60); Globulin 4.0 g/dL (1.7-4.1); Glucose 113 mg/dL (70-99); HEMOLYSIS 18 (0-50); Lipase 136 U/L (23-300); Magnesium 1.8 mg/dL (1.6-2.3); Potassium 4.1 mmol/L (3.4-5.1); Sodium 137 mmol/L (137-145); Total Protein 8.1 g/dL (6.3-8.2)
[2025-08-26 12:23] LABS: NT-proBNP (BNP-Adult 18+) 214 pg/mL (<450); Troponin I < 0.012 ng/mL (0.01-0.034)
[2025-08-26 12:56] LABS: Thyroid Stimulating Hormone 4.95 uIU/mL (0.47-4.68)
--- NOTE | 2025-08-26 12:56 | CM.SWNOTE ---
Addendum entered by Devi Espinoza 08/26/25 14:44: ED provider consulted with Cable Repairer and it was recommended that patient be admitted for observation for stress test. Patient is consistently stating that she wants to discharge to home. Patient will be leaving AMA. Patient to f/u with PCP next week. Devi Espinoza, [facility] Original Note: ED REVIEWER SALES Assessment Note Patient is 80 y/o female who presents to ED via POV due to concern for chest pains and depression. Patient has hx of NSTEMI in May 2025. Patient's PCP is Dr. Castillo, patient has Medicare and AARP insurance. Patient is DNR with limited intervention. Patient has hx of significant grief and loss, patient's ex /friend recently in February 2025, patient's first of [address] REVIEWER SALES enters room to meet with patient, patient presents as dysthymic and tearful, coherent, A/Ox4. Patient endorses she feels lonely. Patient states that she keeps her social mohegan small and does not interact with many people or seek out social interactions but also feels lonely. Patient endorses concern that she is not contributing to society. Patient presents with hesitation to engage with others and presents with hopelessness regarding her current situation. Patient resides alone in [place], patient endorses that she drives and is independent with ADLs. Patient endorses she is able to do what she needs to do, but presents with disinterest in cooking and preparing meals and eats what is easy and available, patient endorses difficulty identifying what to eat. Patient states that she has a fulfillment associate, she states her fulfillment associate is watching her dogs while she is in the ED. Patient endorses that she wakes up every morning to care for her dogs. Patient has supportive sister in [place], it is reported that patient initially planned to move to [place] to be closer to family because she has no local supports here. Patient endorses that she was worried that the heat in [place] would be detrimental to her older dogs. Patient's sister called patient while patient was in the ED and checks in with her regularly. Patient endorses that she keeps her sister at a distance and states that they don't really know each other. Patient states she has spent the last decades of her life focusing on her relationship on her spouse at the time. Patient endorses thoughts of SI, patient endorses thoughts of I would be better off. Patient endorses thoughts of utilizing a directory compiler and dying with dignity and patient is aware that she is not dying and does not meet criteria for this. Patient denies intent to kill self and contracts for safety. REVIEWER SALES offers grief counseling resources and lists of therapists and patient declines. Patient endorses that she has been seeing a neighbor around the neighborhood and starting to befriend her, patient endorses thoughts of going to the [employer] but has lacked motivation to leave the house. REVIEWER SALES contacts patient's PCP and requests ED f/u and schedules patient for appt on Monday09/03/25 at 9:15 AM check in, patient endorses agreement and understanding. Patient denies any further resources from REVIEWER SALES. REVIEWER SALES provides patient with therapeutic engaging conversation and patient thanks REVIEWER SALES. REVIEWER SALES encourages patient to continue to reach out to her neighbor and sister. REVIEWER SALES reviews patient with ED provider. Patient awaiting cardiac work up and medical clearance at this time. It is the opinion of this REVIEWER SALES that patient is safe to d/c to home upon medical clearance. Plan: patient to d/c to home upon medical clearance, patient to f/u with PCP next week. BEAU Eng
[2025-08-26 13:55] LABS: Troponin I < 0.012 ng/mL (0.01-0.034)
== END 2025-08-26 15:03 | disposition left against medical advice (07) ==
PROVIDERS: Emergency Provider Emergency Medicine; PCP Family Medicine
DX: R07.9 Chest pain, unspecified (principal); I25.2 Old myocardial infarction
CPT/HCPCS: 36415; 71045; 80053; 82550; 83690; 83735; 83880; 84443; 84484; 85007; 85025; 85379; 85610; 85730; 93005; 93010; 99284

== ENCOUNTER → 2025-09-03 10:24 | Outpatient (CLI) | payer MEDICARE, SELFPAY ==
[2025-05-27 13:10] VITALS: BMI 24.7
[2025-09-03 12:44] LABS: TSH w/ Reflex to FT4 7.67 uIU/mL (0.47-4.68)
[2025-09-03 13:09] LABS: Free T4, Direct Thyroxine 1.00 ng/dL (0.78-2.19)
== END ==
PROVIDERS: PCP Family Medicine; Referring Provider Family Medicine; Visit Provider Family Medicine
DX: E03.8 Other specified hypothyroidism (principal)
CPT/HCPCS: 36415; 84439; 84443